=== PATIENT | female | born 1975 | race Hispanic/Latino ===

== ENCOUNTER 2017-12-04 00:10 | Emergency (ER) | payer SELFPAY ==
[2017-12-04] MEDS ORDERED: CIPROFLOXACIN HCL 500 MG TAB ONE (00:55)
--- NOTE | 2017-12-04 00:55 | ER ---
Nurse's Notes [facility] Name: Aracelis Rios Age: 42 yrs Sex: Female : 1975 Arrival Date: 12/04/2017 Time: 00:14 Bed 28 Private MD: Diagnosis: Cystitis Presentation: 12/04 00:26 Presenting complaint: Patient states: Lower back pain x 1 week, burning with urination, lp1 nausea, Pain worse today; States hx of kidney infections; Denies any fever. Transition of care: patient was not received from another setting of care. Onset of symptoms was December 04, 2017. Initial Sepsis Screen: Does the patient meet any 2 criteria? No. Patient's initial sepsis screen is negative. Does the patient have a suspected source of infection? No. Patient's initial sepsis screen is negative. Care prior to arrival: None. 00:26 Method Of Arrival: Ambulatory lp1 00:26 Acuity: PRASANNA 3 lp1 Triage Assessment: 00:30 General: Appears in no apparent distress. Behavior is calm, cooperative, appropriate lp1 for age. Pain: Complains of pain in left low back and right low back Pain currently is 6 out of 10 on a pain scale. EENT: No signs and/or symptoms were reported regarding the EENT system. Neuro: Level of Consciousness is awake, alert, obeys commands. Cardiovascular: Patient's skin is warm and dry. Respiratory: Respiratory effort is even, unlabored. GI: No signs and/or symptoms were reported involving the gastrointestinal system. : Reports burning with urination, cramping, urinary frequency. Derm: Skin is pink, warm \T\ dry. Musculoskeletal: Circulation, motion, and sensation intact. 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 - Social history:: Smoking status: Patient/guardian denies using tobacco. - Family history:: not pertinent. Screenin:31 Abuse screen: Denies threats or abuse. Denies injuries from another. Nutritional lp1 screening: No deficits noted. Tuberculosis screening: No symptoms or risk factors identified. Fall Risk None identified. Vital Signs: 00:27 BP 133 / 94; Pulse 88; Resp 18; Temp 98.3(O); Pulse Ox 99% on R/A; Weight 51.26 kg; lp1 Height 5 ft. 1 in. (154.94 cm); Pain 8/10; 00:27 Body Mass Index 21.35 (51.26 kg, 154.94 cm) lp1 ED Course: 00:14 Patient arrived in ED. do 00:26 Anjana Loo, RN is Primary Nurse. lp1 00:27 Triage completed. lp1 00:28 Arm band placed on left wrist. lp1 00:30 Geraldo Vaz MD is Attending Physician. [facility] 00:31 Patient has correct armband on for positive identification. lp1 00:42 Urine collected: clean catch specimen, clear. cb2 01:02 No provider procedures requiring assistance completed. Patient did not have IV access lp1 during this emergency room visit. Administered Medications: 01:01 Drug: Cipro 500 mg Route: PO; lp1 01:01 Follow up: Response: Medication administered at discharge. lp1 Outcome: 00:55 Discharge ordered by . leisa 01:02 Discharged to home ambulatory. lp1 01:02 Condition: good 01:02 Discharge instructions given to patient, Instructed on discharge instructions, follow up and referral plans. medication usage, Demonstrated understanding of instructions, follow-up care, medications, Prescriptions given X 2. 01:03 Patient left the ED. lp1 Signatures: Geraldo Vaz MD MD cha Pena, Laura, RN RN lp1 Elba Muhammad Christian cb2
--- NOTE | 2017-12-04 00:55 | EDPHYS ---
Physician Documentation [facility] Name: Aracelis Rios Age: 42 yrs Sex: Female : 1975 Arrival Date: 12/04/2017 Time: 00:14 Bed 28 Private MD: ED Physician Geraldo Vaz HPI: 12/04 00:52 This 42 yrs old Female presents to ER via Ambulatory with complaints of Lower leisa Back Pain, Side Pain. 00:52 The patient presents with flank pain, on the right, on the left. Onset: The leisa symptoms/episode began/occurred 3 day(s) ago. Modifying factors: The symptoms are alleviated by nothing, the symptoms are aggravated by nothing. Associated signs and symptoms: Pertinent positives: nausea, urinary frequency. Severity of symptoms: At their worst the symptoms were moderate, in the emergency department the symptoms have improved, moderately. The patient has experienced similar episodes in the past, a few times. 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 - Social history:: Smoking status: Patient/guardian denies using tobacco. - Family history:: not pertinent. ROS: 00:52 Constitutional: Negative for fever, chills, and weight loss, Eyes: Negative for injury, leisa pain, redness, and discharge, ENT: Negative for injury, pain, and discharge, Neck: Negative for injury, pain, and swelling, Cardiovascular: Negative for chest pain, palpitations, and edema, Respiratory: Negative for shortness of breath, cough, wheezing, and pleuritic chest pain, Abdomen/GI: Negative for abdominal pain, nausea, vomiting, diarrhea, and constipation, MS/Extremity: Negative for injury and deformity, Skin: Negative for injury, rash, and discoloration, Neuro: Negative for headache, weakness, numbness, tingling, and seizure. 00:52 Abdomen/GI: Positive for 00:52 Back: Positive for decreased range of motion, pain at rest, pain with movement. Exam: 00:52 Constitutional: This is a well developed, well nourished patient who is awake, alert, leisa and in no acute distress. Head/Face: Normocephalic, atraumatic. Eyes: Pupils equal round and reactive to light, extra-ocular motions intact. Lids and lashes normal. Conjunctiva and sclera are non-icteric and not injected. Cornea within normal limits. Periorbital areas with no swelling, redness, or edema. ENT: Nares patent. No nasal discharge, no septal abnormalities noted. Tympanic membranes are normal and external auditory canals are clear. Oropharynx with no redness, swelling, or masses, exudates, or evidence of obstruction, uvula midline. Mucous membranes moist. Neck: Trachea midline, no thyromegaly or masses palpated, and no cervical lymphadenopathy. Supple, full range of motion without nuchal rigidity, or vertebral point tenderness. No Meningismus. Chest/axilla: Normal chest wall appearance and motion. Nontender with no deformity. No lesions are appreciated. Cardiovascular: Regular rate and rhythm with a normal S1 and S2. No gallops, murmurs, or rubs. Normal PMI, no JVD. No pulse deficits. Respiratory: Lungs have equal breath sounds bilaterally, clear to auscultation and percussion. No rales, rhonchi or wheezes noted. No increased work of breathing, no retractions or nasal flaring. Abdomen/GI: Soft, non-tender, with normal bowel sounds. No distension or tympany. No guarding or rebound. No evidence of tenderness throughout. Back: No spinal tenderness. No costovertebral tenderness. Full range of motion. Pelvic Exam: Normal external genitalia. Speculum exam with closed cervical os, no discharge or bleeding noted. Bimanual exam with normal adnexa, no adnexal or cervical motion tenderness. Normal uterus. Skin: Warm, dry with normal turgor. Normal color with no rashes, no lesions, and no evidence of cellulitis. MS/ Extremity: Pulses equal, no cyanosis. Neurovascular intact. Full, normal range of motion. Neuro: Awake and alert, GCS 15, oriented to person, place, time, and situation. Cranial nerves II-XII grossly intact. Motor strength 5/5 in all extremities. Sensory grossly intact. Cerebellar exam normal. Normal gait. Psych: Awake, alert, with orientation to person, place and time. Behavior, mood, and affect are within normal limits. Vital Signs: 00:27 BP 133 / 94; Pulse 88; Resp 18; Temp 98.3(O); Pulse Ox 99% on R/A; Weight 51.26 kg; lp1 Height 5 ft. 1 in. (154.94 cm); Pain 8/10; 00:27 Body Mass Index 21.35 (51.26 kg, 154.94 cm) lp1 MDM: 00:30 Patient medically screened. [facility] 12/04 01:02 Order name: Urine Dipstick--Ancillary (enter results) em1 Administered Medications: 01:01 Drug: Cipro 500 mg Route: PO; lp1 01:01 Follow up: Response: Medication administered at discharge. lp1 Disposition: 12/04/17 00:55 Discharged to Home. Impression: Cystitis. - Condition is Stable. - Discharge Instructions: Dysuria. - Prescriptions for Cipro 250 mg Oral Tablet - take 1 tablet by ORAL route every 12 hours; 14 tablet. Pyridium 200 mg Oral Tablet - take 1 tablet by ORAL route every 8 hours for 3 days; 9 tablet. - Medication Reconciliation Form, Thank You Letter, Antibiotic Education, Prescription Opioid Use form. - Follow up: Private Physician; When: 2 - 3 days; Reason: Recheck today's complaints, Continuance of care, Re-evaluation by your physician. - Problem is new. - Symptoms have improved. Signatures: Dispatcher [employer] Geraldo Lynch MD MD cha Pena, Laura, RN RN lp1
[2017-12-04 01:23] VITALS: BP 133/94; TEMP 98.3; O2SAT 99
[2017-12-04 03:06] LABS: Urine Blood NEGATIVE (NEG); Urine Glucose NEGATIVE (NEG); Urine Protein NEGATIVE (NEG); Urine Specific Gravity <1.005 (1.005-1.030); Urine pH 5.5 (5.0-7.0)
== END 2017-12-04 01:03 | disposition home or self-care (01) ==
LOC: ER 00:10
DX: N30.90 Cystitis, unspecified without hematuria (principal); F41.8 Other specified anxiety disorders; R56.9 Unspecified convulsions; Z88.1 Allergy status to other antibiotic agents; Z88.0 Allergy status to penicillin
CPT/HCPCS: 81003; 99283

== ENCOUNTER 2018-01-10 07:43 | Emergency (ER) | payer SELFPAY ==
[2018-01-10] MEDS ORDERED: LORazepam 2 MG/ML VIAL ONE (08:22)
[2018-01-10 08:48] LABS: Absolute Lymphocytes (CBC) 1.8 K/uL (0.7-4.9); Absolute Monocytes 0.7 K/uL (0.1-1.3); Absolute Neutrophil 5.2 K/uL (1.8-8.0); Basophils % 1.1 % (0-1.3); Eosinophils % 0.6 % (0-4.4); Hematocrit 39.2 % (36.0-45.0); Lymphocytes % 22.7 % (15.3-44.8); MCH 31.2 pg (27.0-35.0); MCV 93.8 fL (80-100); MPV 9.3 fL (7.6-11.3); Monocytes % 9.5 % (3.3-12.3); RBC Red Blood Cell Count 4.18 M/uL (3.86-4.86)
[2018-01-10 09:02] LABS: Bicarbonate 27 mEq/L (21-31); Glucose Level 110 mg/dL (65-120); Lipase 35 U/L (22-51); Potassium 3.3 mEq/L (3.6-5.0); Sodium Level 139 mEq/L (135-145)
[2018-01-10 09:08] LABS: ALT/SGPT 13 IU/L (10-60); AST/SGOT 16 IU/L (10-42); Albumin 4.7 g/dL (3.2-5.5); Alkaline Phosphatase 116 IU/L (42-121); BUN Blood Urea Nitrogen 9 mg/dL (6-20); Bilirubin Direct 0.1 mg/dL (0-0.2); Bilirubin Total 0.5 mg/dL (0.3-1.2); Creatine Phosphokinase 74 IU/L (22-269); Protein, Total 8.4 g/dL (6.0-8.3)
--- NOTE | 2018-01-10 10:05 | ER ---
Nurse's Notes [facility] Name: Aracelis Rios Age: 42 yrs Sex: Female : 1975 Arrival Date: 01/10/2018 Time: 07:46 Bed 5 Private MD: Oscar Azevedo E Diagnosis: Nausea and vomiting;Adverse effect of cocaine Presentation: 01/10 07:54 Presenting complaint: Patient states: left sided and midsternal CP that started last sv night after using cocaine. c/o vomiting and back pain. Transition of care: patient was not received from another setting of care. Onset of symptoms was January 09, 2018. Risk Assessment: Do you want to hurt yourself or someone else? Patient reports no desire to harm self or others. Initial Sepsis Screen: Does the patient meet any 2 criteria? No. Patient's initial sepsis screen is negative. Does the patient have a suspected source of infection? No. Patient's initial sepsis screen is negative. Care prior to arrival: None. 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 - Social history:: Smoking status: Patient/guardian denies using tobacco, Patient uses alcohol, occasionally. street drugs, cocaine. - Ebola Screening: : No symptoms or risks identified at this time. Screenin:16 Abuse screen: Denies threats or abuse. Denies injuries from another. Nutritional hb screening: No deficits noted. Tuberculosis screening: No symptoms or risk factors identified. Fall Risk None identified. Assessment: 08:15 Pain: Pain currently is 4 out of 10 on a pain scale. hb 08:15 General: Appears in no apparent distress. uncomfortable, Behavior is calm, cooperative. hb Neuro: Level of Consciousness is awake, alert, obeys commands, Oriented to person, place, time, situation. Cardiovascular: Reports chest pain, Heart tones S1 S2 present Capillary refill < 3 seconds Patient's skin is warm and dry. Rhythm is regular. Respiratory: Airway is patent Trachea midline Respiratory effort is even, unlabored, Respiratory pattern is regular, symmetrical, Breath sounds are clear bilaterally. GI: Abdomen is non-distended, Bowel sounds present X 4 quads. Abd is soft and non tender X 4 quads. Reports nausea. : No signs and/or symptoms were reported regarding the genitourinary system. EENT: No signs and/or symptoms were reported regarding the EENT system. Derm: No signs and/or symptoms reported regarding the dermatologic system. Skin is intact, is healthy with good turgor, Skin is pink, warm \T\ dry. normal. Musculoskeletal: No signs and/or symptoms reported regarding the musculoskeletal system. 09:15 Reassessment: Patient appears in no apparent distress at this time. Patient and/or hb family updated on plan of care and expected duration. Pain level reassessed. Patient is alert, oriented x 3, equal unlabored respirations, skin warm/dry/pink. Vital Signs: 08:03 BP 125 / 92; Pulse 93; Resp 18; Temp 97.2(TE); Pulse Ox 98% on R/A; Weight 49.9 kg; sv Height 5 ft. 1 in. (154.94 cm); Pain 4/10; 09:00 BP 109 / 82; Pulse 75; Resp 15; Pulse Ox 98% on R/A; hb 08:03 Body Mass Index 20.78 (49.90 kg, 154.94 cm) sv ED Course: 07:46 Patient arrived in ED. sb2 07:47 Oscar Azevedo MD is Private Physician. sb2 08:02 Karel Wallace MD is Attending Physician. gs 08:02 Triage completed. sv 08:04 Arm band placed on right wrist. sv 08:09 Zeny Moura, ROSARIO is Primary Nurse. ph 08:16 Patient has correct armband on for positive identification. Placed in gown. Bed in low hb position. Call light in reach. Side rails up X 1. security monitor on. Pulse ox on. NIBP on. 08:20 Inserted saline lock: 20 gauge in right antecubital area, using aseptic technique. hb Blood collected. 08:23 EKG done, by ED staff, reviewed by Karel Wallace MD. formerly [facility] 08:25 X-ray completed. Portable x-ray completed in exam room. Patient tolerated procedure ag1 well. 08:25 XRAY Chest (1 view) In Process Unspecified. EDMS 10:43 No provider procedures requiring assistance completed. IV discontinued, intact, hb bleeding controlled, No redness/swelling at site. Pressure dressing applied. Administered Medications: 08:23 Drug: Ativan 1 mg Route: IVP; Site: right antecubital; hb Outcome: 10:05 Discharge ordered by . 10:43 Discharged to home ambulatory, with family. 10:43 Condition: stable 10:43 Discharge instructions given to patient, Instructed on discharge instructions, follow up and referral plans. medication usage, Demonstrated understanding of instructions, follow-up care, medications, Prescriptions given X 1. 10:44 Patient left the ED. Signatures: Dispatcher [employer] EDWI Karie Whalen RN RN Zeny Moura RN RN Geeta Bryson ag1 Nataliya Jones RN RN Daksha Valles [facility] Karel Wallace MD MD Dominique Jo sb2
--- NOTE | 2018-01-10 10:05 | EDPHYS ---
Physician Documentation [facility] Name: Aracelis Rios Age: 42 yrs Sex: Female : 1975 Arrival Date: 01/10/2018 Time: 07:46 Bed 5 Private MD: Oscar Azevedo E ED Physician Karel Wallace HPI: 01/10 11:58 This 42 yrs old Female presents to ER via Ambulatory with complaints of gs Nausea, Lightheaded. 11:58 The patient or guardian reports chest pain that is located primarily in the anterior gs chest wall. Onset: last night. The pain does not radiate. Associated signs and symptoms: Pertinent positives: nausea. The chest pain is described as dull. Duration: The patient or guardian reports multiple episodes, that wax and wane, with no pattern. Modifying factors: The symptoms are alleviated by nothing. the symptoms are aggravated by nothing. Severity of pain: At its worst the pain was moderate in the emergency department the pain has resolved. The patient has experienced similar episodes in the past, a few times. did coke last night. 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 - Social history:: Smoking status: Patient/guardian denies using tobacco, Patient uses alcohol, occasionally. street drugs, cocaine. - Ebola Screening: : No symptoms or risks identified at this time. ROS: 11:58 All other systems are negative. gs Exam: 08:30 ECG was reviewed by the Attending Physician. gs 11:58 Head/Face: Normocephalic, atraumatic. Eyes: Pupils equal round and reactive to light, gs extra-ocular motions intact. Lids and lashes normal. Conjunctiva and sclera are non-icteric and not injected. Cornea within normal limits. Periorbital areas with no swelling, redness, or edema. ENT: Nares patent. No nasal discharge, no septal abnormalities noted. Tympanic membranes are normal and external auditory canals are clear. Oropharynx with no redness, swelling, or masses, exudates, or evidence of obstruction, uvula midline. Mucous membranes moist. Neck: Trachea midline, no thyromegaly or masses palpated, and no cervical lymphadenopathy. Supple, full range of motion without nuchal rigidity, or vertebral point tenderness. No Meningismus. Chest/axilla: Normal chest wall appearance and motion. Nontender with no deformity. No lesions are appreciated. Cardiovascular: Regular rate and rhythm with a normal S1 and S2. No gallops, murmurs, or rubs. Normal PMI, no JVD. No pulse deficits. Respiratory: Lungs have equal breath sounds bilaterally, clear to auscultation and percussion. No rales, rhonchi or wheezes noted. No increased work of breathing, no retractions or nasal flaring. Abdomen/GI: Soft, non-tender, with normal bowel sounds. No distension or tympany. No guarding or rebound. No evidence of tenderness throughout. Back: No spinal tenderness. No costovertebral tenderness. Full range of motion. Skin: Warm, dry with normal turgor. Normal color with no rashes, no lesions, and no evidence of cellulitis. MS/ Extremity: Pulses equal, no cyanosis. Neurovascular intact. Full, normal range of motion. Neuro: Awake and alert, GCS 15, oriented to person, place, time, and situation. Cranial nerves II-XII grossly intact. Motor strength 5/5 in all extremities. Sensory grossly intact. Cerebellar exam normal. Normal gait. 11:58 Constitutional: The patient appears alert, awake. Vital Signs: 08:03 BP 125 / 92; Pulse 93; Resp 18; Temp 97.2(TE); Pulse Ox 98% on R/A; Weight 49.9 kg; sv Height 5 ft. 1 in. (154.94 cm); Pain 4/10; 09:00 BP 109 / 82; Pulse 75; Resp 15; Pulse Ox 98% on R/A; hb 08:03 Body Mass Index 20.78 (49.90 kg, 154.94 cm) sv MDM: 08:02 Patient medically screened. 11:58 Differential diagnosis: coronary artery disease chest wall pain, pleurisy. Data gs reviewed: vital signs, nurses notes. Response to treatment: the patient's symptoms have resolved after treatment, and as a result, I will discharge patient. 01/10 08:07 Order name: Basic Metabolic Panel; Complete Time: 09:22 gs 01/10 08:07 Order name: CBC with Diff; Complete Time: 09:22 gs 01/10 08:07 Order name: CPK; Complete Time: 09:22 gs 01/10 08:07 Order name: LFT's; Complete Time: 09:22 gs 01/10 08:07 Order name: Troponin (emerg Dept Use Only); Complete Time: 09:22 gs 01/10 08:07 Order name: Lipase; Complete Time: 09:22 gs 01/10 08:07 Order name: XRAY Chest (1 view) 01/10 08:07 Order name: EKG; Complete Time: 08:07 gs 01/10 08:07 Order name: Cardiac monitoring; Complete Time: 08:23 gs 01/10 08:07 Order name: EKG - Nurse/Tech; Complete Time: 08:23 gs 01/10 08:07 Order name: IV Saline Lock; Complete Time: 08:23 gs 01/10 08:07 Order name: Labs collected and sent; Complete Time: 08:23 gs 01/10 08:07 Order name: O2 Per Protocol; Complete Time: 08:23 gs 01/10 08:07 Order name: O2 Sat Monitoring; Complete Time: 08:23 gs EC:30 Rate is 81 beats/min. Rhythm is regular. NV interval is normal. QRS interval is normal. gs T waves are Normal. No ST changes noted. Clinical impression: Normal ECG. Interpreted by me. Administered Medications: 08:23 Drug: Ativan 1 mg Route: IVP; Site: right antecubital; hb Disposition: 01/10/18 10:05 Discharged to Home. Impression: Nausea and vomiting, Adverse effect of cocaine. - Condition is Stable. - Discharge Instructions: Nausea and Vomiting. - Prescriptions for Ativan 1 mg Oral Tablet - take 1 tablet by ORAL route every 8 hours As needed; 6 tablet. - Work release form, Family Work Release, Medication Reconciliation Form, Thank You Letter, Antibiotic Education, Prescription Opioid Use form. - Follow up: Private Physician; When: 2 - 3 days; Reason: Re-evaluation by your physician. Signatures: Dispatcher [employer] Karie Maloney RN RN Nataliya Holland RN RN Karel Serra MD MD gs Corrections: (The following items were deleted from the chart) 10:44 10:05 01/10/2018 10:05 Discharged to Home. Impression: Nausea and vomiting; Adverse hb effect of cocaine. Condition is Stable. Forms are Medication Reconciliation Form, Thank You Letter, Antibiotic Education, Prescription Opioid Use. Follow up: Private Physician; When: 2 - 3 days; Reason: Re-evaluation by your physician. gs
--- NOTE | 2018-01-10 10:39 | EKG ---
Test Date: 2018-01-10 Test Time: 08:19:58 Purchaser: SOUTH MEASUREMENT RESULTS: Intervals: Rate: 81 ID: [id number] QRSD: 70 QT: 380 QTc: 441 [place]: P: 41 ID: [id number] QRS: 73 T: 70 INTERPRETIVE STATEMENTS: Normal sinus rhythm with sinus arrhythmia Normal ECG Compared to ECG 12/02/2016 14:09:03 Sinus bradycardia no longer present Electronically Signed On 01-10-18 10:38:28 CDT by Valdez Alvarado
--- NOTE | 2018-01-10 10:57 | RAD REPORT ---
EXAM DESCRIPTION: Nayana Single View01/10/2018 8:28 am CLINICAL HISTORY: Chest pain COMPARISON: December 2016 FINDINGS: The lungs appear clear of acute infiltrate. The heart is normal size. Nodular opacity ove rlying the lung bases probably represent nipple shadows. This could be confirmed with chest film with nipple markers
[2018-01-10 11:01] VITALS: TEMP 97.2; O2SAT 98
[2018-01-10 11:02] VITALS: BP 109/82
== END 2018-01-10 10:44 | disposition home or self-care (01) ==
LOC: ER 07:43
DX: R11.2 Nausea with vomiting, unspecified (principal); T40.5X5A Adverse effect of cocaine, initial encounter; F41.9 Anxiety disorder, unspecified; F32.9 Major depressive disorder, single episode, unspecified; Z88.0 Allergy status to penicillin; Z88.1 Allergy status to other antibiotic agents; Z88.8 Allergy status to other drugs, medicaments and biological substances
CPT/HCPCS: 36415; 71045; 80048; 80076; 82550; 83690; 84484; 85025; 93005; 96374; 99284

== ENCOUNTER 2018-02-13 08:03 | Emergency (ER) | payer SELFPAY ==
--- NOTE | 2018-02-13 08:21 | ER ---
Nurse's Notes [facility] Name: Aracelis Rios Age: 42 yrs Sex: Female : 1975 Arrival Date: 02/13/2018 Time: 08:05 Bed 7 Private MD: Oscar Azevedo E Diagnosis: Nausea and vomiting Presentation: 02/13 08:10 Presenting complaint: Patient states: for 2 days i have been vomiting, can keep tw2 gatoraid down. Transition of care: patient was not received from another setting of care. Onset of symptoms was February 13, 2018. Risk Assessment: Do you want to hurt yourself or someone else? Patient reports no desire to harm self or others. Initial Sepsis Screen: Does the patient meet any 2 criteria? No. Patient's initial sepsis screen is negative. Does the patient have a suspected source of infection? No. Patient's initial sepsis screen is negative. Care prior to arrival: None. 08:10 Method Of Arrival: Ambulatory tw2 08:10 Acuity: PRASANNA 3 tw2 Triage Assessment: 08:12 General: Appears in no apparent distress. well groomed, Behavior is calm, cooperative, tw2 appropriate for age, pt is on phone upon entry into the room. Pain: Complains of pain in abdomen. EENT: No signs and/or symptoms were reported regarding the EENT system. Neuro: Level of Consciousness is awake, alert, obeys commands, Oriented to person, place, time, situation. Cardiovascular: Denies chest pain, shortness of breath, Heart tones S1 S2 Capillary refill < 3 seconds Patient's skin is warm and dry. Respiratory: Airway is patent Respiratory effort is even, unlabored, Respiratory pattern is regular, symmetrical, Breath sounds are clear bilaterally. GI: Abdomen is flat, Bowel sounds present X 4 quads. Reports intolerance of fluids, intolerance of food, nausea. : No signs and/or symptoms were reported regarding the genitourinary system. Derm: No signs and/or symptoms reported regarding the dermatologic system. Musculoskeletal: Range of motion: intact in all extremities. 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 tw2 Historical: - Allergies: 08:12 Amoxicillin; tw2 08:12 ketorolac tromethamine; tw2 08:12 Ondansetron HCl; tw2 08:12 PENICILLINS; tw2 - Home Meds: 08:12 Xanax 1 mg Oral tab twice a day [Active]; mirtazapine 15 mg Oral tab 1 tab once daily tw2 [Active]; Ambien 10 mg Oral tab 1 tab once daily [Active]; - PMHx: 08:12 Anxiety; Depression; PTSD; Seizures; tw2 - PSHx: 08:12 ; Appendectomy; Hysterectomy; D \T\ C; tw2 - Immunization history:: Adult Immunizations up to date. - Social history:: Smoking status: Patient/guardian denies using tobacco. - Ebola Screening: : Patient denies exposure to infectious person Patient denies travel to an Ebola-affected area in the 21 days before illness onset. Screenin:15 Abuse screen: Denies threats or abuse. Nutritional screening: No deficits noted. tw2 Tuberculosis screening: No symptoms or risk factors identified. Fall Risk None identified. Assessment: 08:21 Reassessment: see triage assessment. Reassessment: pt given 4oz water for PO challenge tw2 at this time, will continue to monitor, pt denies abdominal pain at this time. GI: Reports nausea. 08:31 Reassessment: Patient appears in no apparent distress at this time. Patient and/or tw2 family updated on plan of care and expected duration. Pain level reassessed. Patient is alert, oriented x 3, equal unlabored respirations, skin warm/dry/pink. pt tolerated fluids well, nad. Vital Signs: 08:13 BP 121 / 73; Pulse 74; Resp 17; Temp 98.6(O); Pulse Ox 100% on R/A; Pain 4/10; tw2 ED Course: 08:05 Patient arrived in ED. mr 08:05 Oscar Azevedo MD is Private Physician. mr 08:09 Geraldo Duff [facility]. cp 08:09 Vernon Vazquez MD is Attending Physician. cp 08:10 Rachna Butler, ROSARIO is Primary Nurse. tw2 08:11 Triage completed. tw2 08:13 Arm band placed on. tw2 08:14 Bed in low position. Call light in reach. Pulse ox on. NIBP on. tw2 08:22 No provider procedures requiring assistance completed. tw2 08:32 Patient did not have IV access during this emergency room visit. tw2 Administered Medications: No medications were administered Outcome: 08:21 Discharge ordered by . cp 08:32 Discharged to home ambulatory. tw2 08:32 Condition: stable 08:32 Discharge instructions given to patient, Instructed on discharge instructions, follow up and referral plans. no drinking with medication, no driving heavy equipment, medication usage, Demonstrated understanding of instructions, follow-up care, medications, Prescriptions given X 1. 08:32 Patient left the ED. tw2 Signatures: Sommer Banuelos mr Geraldo Duff, Rachna Longoria cp RN RN tw2
--- NOTE | 2018-02-13 08:21 | EDPHYS ---
Physician Documentation [facility] Name: Aracelis Rios Age: 42 yrs Sex: Female : 1975 Arrival Date: 02/13/2018 Time: 08:05 Bed 7 Private MD: Oscar Azevedo E ED Physician Vernon Vazquez HPI: 02/13 08:14 This 42 yrs old Female presents to ER via Ambulatory with complaints of cp Vomiting. 08:14 The patient presents to the emergency department with vomiting, that is intermittent. cp Onset: The symptoms/episode began/occurred yesterday. Possible causes: bad food exposure. The symptoms are aggravated by food . Associated signs and symptoms: Pertinent positives: diarrhea yesterday, Pertinent negatives: abdominal pain, constipation, fever, GI bleeding. Severity of symptoms: in the emergency department the symptoms have improved moderately. 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 tw2 Historical: - Allergies: 08:12 Amoxicillin; tw2 08:12 ketorolac tromethamine; tw2 08:12 Ondansetron HCl; tw2 08:12 PENICILLINS; tw2 - Home Meds: 08:12 Xanax 1 mg Oral tab twice a day [Active]; mirtazapine 15 mg Oral tab 1 tab once daily tw2 [Active]; Ambien 10 mg Oral tab 1 tab once daily [Active]; - PMHx: 08:12 Anxiety; Depression; PTSD; Seizures; tw2 - PSHx: 08:12 ; Appendectomy; Hysterectomy; D \T\ C; tw2 - Immunization history:: Adult Immunizations up to date. - Social history:: Smoking status: Patient/guardian denies using tobacco. - Ebola Screening: : Patient denies exposure to infectious person Patient denies travel to an Ebola-affected area in the 21 days before illness onset. ROS: 08:16 Eyes: Negative for injury, pain, redness, and discharge. cp 08:16 Constitutional: Negative for body aches, chills, fever. 08:16 ENT: Negative for drainage from ear(s), ear pain, sore throat, difficulty swallowing, difficulty handling secretions. 08:16 Cardiovascular: Negative for chest pain. 08:16 Respiratory: Negative for cough, shortness of breath, wheezing. 08:16 Abdomen/GI: Positive for nausea, vomiting, Negative for abdominal pain, constipation, anorexia, hematemesis. 08:16 Back: Negative for pain at rest, pain with movement, radiated pain. 08:16 : Negative for urinary symptoms. 08:16 Skin: Negative for cellulitis, rash. 08:16 Neuro: Negative for dizziness, headache, weakness. 08:16 All other systems are negative. Exam: 08:18 Head/Face: Normocephalic, atraumatic. cp 08:18 Constitutional: The patient appears in no acute distress, alert, awake, non-toxic, well developed, well nourished. 08:18 Eyes: Periorbital structures: appear normal, Conjunctiva: normal, no exudate, no injection, Lids and lashes: appear normal, bilaterally. 08:18 ENT: External ear(s): are unremarkable, Nose: is normal, Mouth: Lips: moist, Oral mucosa: moist, Posterior pharynx: is normal, airway is patent, no erythema, no exudate. 08:18 Neck: ROM/movement: is normal, is supple, without pain, no range of motions limitations, no nuchal rigidity. 08:18 Chest/axilla: Inspection: normal, Palpation: is normal, no crepitus, no tenderness. 08:18 Cardiovascular: Rate: normal, Rhythm: regular. 08:18 Respiratory: the patient does not display signs of respiratory distress, Respirations: normal, no use of accessory muscles, no retractions, no splinting, no tachypnea, labored breathing, is not present, Breath sounds: are clear throughout, no decreased breath sounds, no stridor, no wheezing. 08:18 Abdomen/GI: Inspection: abdomen appears normal, Bowel sounds: active, all quadrants, Palpation: abdomen is soft and non-tender, in all quadrants, rebound tenderness, is not appreciated, voluntary guarding, is not appreciated, involuntary guarding, is not appreciated. 08:18 Back: pain, is absent, ROM is normal. 08:18 Skin: cellulitis, is not appreciated, no rash present. Vital Signs: 08:13 BP 121 / 73; Pulse 74; Resp 17; Temp 98.6(O); Pulse Ox 100% on R/A; Pain 4/10; tw2 MDM: 08:11 Patient medically screened. cp 08:15 Differential diagnosis: gastritis, cholecystitis, pancreatitis, appendicitis, cp diverticulitis, viral gastroenteritis, gastroenteritis. 08:20 Data reviewed: vital signs, nurses notes, and as a result, I will discharge patient. 08:20 ED course: VSS. No vomiting observed in ED, no complaints of pain. Will discharge to home for continued monitoring. Patient tolerating po fluids. 02/13 08:20 Order name: PO challenge; Complete Time: 08:31 tw2 Administered Medications: No medications were administered Disposition: 10:03 Co-signature as Attending Physician, Vernon Vazquez MD I agree with the assessment and kdr plan of care. Disposition: 02/13/18 08:21 Discharged to Home. Impression: Nausea and vomiting. - Condition is Stable. - Discharge Instructions: Nausea and Vomiting. - Prescriptions for promethazine 25 mg Oral Tablet - take 1 tablet by ORAL route every 6 hours As needed; 10 tablet. - Medication Reconciliation Form, Thank You Letter, Antibiotic Education, Prescription Opioid Use, Work release form form. - Follow up: Private Physician; When: 1 - 2 days; Reason: Recheck today's complaints. - Problem is new. - Symptoms have improved. Signatures: Vernon Vazquez MD MD kdr Geraldo Duff PA PA cp Rachna Butler RN RN tw2 Corrections: (The following items were deleted from the chart) 08:32 08:21 02/13/2018 08:21 Discharged to Home. Impression: Nausea and vomiting. Condition tw2 is Stable. Forms are Work release form, Medication Reconciliation Form, Thank You Letter, Antibiotic Education, Prescription Opioid Use. Follow up: Private Physician; When: 1 - 2 days; Reason: Recheck today's complaints. Problem is new. Symptoms have improved. cp
[2018-02-13 08:37] VITALS: BP 121/73; TEMP 98.6; O2SAT 100
== END 2018-02-13 08:32 | disposition home or self-care (01) ==
LOC: ER 08:03
DX: R11.2 Nausea with vomiting, unspecified (principal); F41.9 Anxiety disorder, unspecified; F32.9 Major depressive disorder, single episode, unspecified; Z88.0 Allergy status to penicillin; Z88.1 Allergy status to other antibiotic agents; Z88.8 Allergy status to other drugs, medicaments and biological substances
CPT/HCPCS: 99283

== ENCOUNTER 2018-04-16 11:22 | Emergency (ER) | payer SELFPAY ==
[2018-04-16] MEDS ORDERED: PROMETHAZINE 25 MG TABLET ONE (12:16)
[2018-04-16] MEDS ORDERED: TRAMADOL HCL 50 MG TAB ONE (12:17)
--- NOTE | 2018-04-16 12:28 | ER ---
Nurse's Notes [facility] Name: Aracelis Rios Age: 42 yrs Sex: Female : 1975 Arrival Date: 04/16/2018 Time: 11:25 Bed 13 Private MD: Diagnosis: Epilepsy and recurrent seizures Presentation: 04/16 11:29 Presenting complaint: EMS states: called out for mild FELICIANO, pt was found in parking lot em curled up into a ball, hx of seizures, currently rates FELICIANO 10/10, described as throbbing, also c/o nausea. Transition of care: patient was not received from another setting of care. Onset of symptoms was April 16, 2018. Risk Assessment: Do you want to hurt yourself or someone else? Patient reports no desire to harm self or others. 11:29 Method Of Arrival: EMS: [facility] em 11:29 Initial Sepsis Screen: Does the patient meet any 2 criteria? No. Patient's initial em sepsis screen is negative. Does the patient have a suspected source of infection? No. Patient's initial sepsis screen is negative. Care prior to arrival: None. 11:35 Acuity: PRASANNA 3 iw Triage Assessment: 11:32 General: Appears in no apparent distress. uncomfortable, Behavior is calm, cooperative. em Pain: Complains of pain in head Pain currently is 10 out of 10 on a pain scale. Neuro: Level of Consciousness is awake, alert, obeys commands, Oriented to person, place, time, situation, Outside Sales Account Representative are equal bilaterally Moves all extremities. Speech is normal. 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 - Social history:: Smoking status: Patient/guardian denies using tobacco. - Ebola Screening: : Patient negative for fever greater than or equal to 101.5 degrees Fahrenheit, and additional compatible Ebola Virus Disease symptoms Patient denies exposure to infectious person Patient denies travel to an Ebola-affected area in the 21 days before illness onset No symptoms or risks identified at this time. Screenin:46 Abuse screen: Denies threats or abuse. Nutritional screening: No deficits noted. em Tuberculosis screening: No symptoms or risk factors identified. Fall Risk None identified. Assessment: 11:35 General: Appears in no apparent distress. uncomfortable, Behavior is calm, cooperative, em appropriate for age. Pain: Complains of pain in head Pain currently is 10 out of 10 on a pain scale. Neuro: Level of Consciousness is awake, alert, obeys commands, Oriented to person, place, time, situation, Outside Sales Account Representative are equal bilaterally Moves all extremities. Speech is normal, Reports headache in right. Cardiovascular: Capillary refill < 3 seconds Patient's skin is warm and dry. Respiratory: Airway is patent Respiratory effort is even, unlabored, Respiratory pattern is regular, symmetrical. GI: Abdomen is flat, Reports nausea, Patient currently denies abdominal pain. : No signs and/or symptoms were reported regarding the genitourinary system. EENT: No signs and/or symptoms were reported regarding the EENT system. Derm: Skin is intact, Skin is pink, warm \T\ dry. Musculoskeletal: Range of motion: intact in all extremities. 11:45 Reassessment: Patient appears in no apparent distress at this time. I agree with above iw assessment by Mauro Anders LVN. 12:37 Reassessment: Patient appears in no apparent distress at this time. Patient and/or em family updated on plan of care and expected duration. Pain level reassessed. Patient is alert, oriented x 3, equal unlabored respirations, skin warm/dry/pink. request to go home. Vital Signs: 11:34 BP 108 / 65; Pulse 102; Resp 20; Pulse Ox 100% on R/A; Weight 53.52 kg; Height 5 ft. 1 em in. (154.94 cm); Pain 10/10; 12:42 BP 105 / 71; Pulse 76; Resp 18; Pulse Ox 99% on R/A; Pain 8/10; em 11:34 Body Mass Index 22.30 (53.52 kg, 154.94 cm) em [place] Coma Score: 11:32 Eye Response: spontaneous(4). Verbal Response: oriented(5). Motor Response: obeys em commands(6). Total: 15. ED Course: 11:25 Patient arrived in ED. iw 11:28 Mauro Anders LVN is Primary Nurse. em 11:33 Vernon Vazquez MD is Attending Physician. kdr 11:34 Arm band placed on. em 11:34 Patient has correct armband on for positive identification. Call light in reach. Side em rails up X2. Adult w/ patient. 11:34 Seizure precautions initiated. em 11:34 No provider procedures requiring assistance completed. Maintain EMS IV. Dressing em intact. Good blood return noted. Site clean \T\ dry. Gauge \T\ site: 18 RAC. 12:37 Triage completed. iw 12:47 Patient did not have IV access during this emergency room visit. em Administered Medications: 12:14 Drug: Phenergan 25 mg Route: PO; em 12:50 Follow up: Response: No adverse reaction em 12:50 Follow up: Response: No adverse reaction em 12:14 Drug: traMADol 50 mg Route: PO; em Outcome: 12:27 Discharge ordered by . kdr 12:49 Discharged to home ambulatory, with family. em 12:49 Condition: good 12:49 Discharge instructions given to patient, family, Instructed on discharge instructions, follow up and referral plans. Demonstrated understanding of instructions, follow-up care. 12:49 Patient left the ED. em Signatures: Vernon Vazquez MD MD [facility] Mauro Anders LVN LVN em Betsy Patel RN RN iw Corrections: (The following items were deleted from the chart) 12:47 11:34 Patient did not have IV access during this emergency room visit. em em
--- NOTE | 2018-04-16 12:28 | EDPHYS ---
Physician Documentation [facility] Name: Aracelis Rios Age: 42 yrs Sex: Female : 1975 Arrival Date: 04/16/2018 Time: 11:25 Bed 13 Private MD: ED Physician Vernon Vazquez HPI: 04/16 16:48 This 42 yrs old Female presents to ER via EMS with complaints of Headache. kdr 16:48 The patient complains of pain to the top of head, left frontal area and right frontal kdr area. The patient describes the headache as aching, a pressure, waxing and waning. Onset: The symptoms/episode began/occurred just prior to arrival, today. The patient presents after having a single isolated seizure, that lasted an unknown period of time, the episode(s) was witnessed, by co-worker(s). Character of seizure(s): Loss of consciousness: the patient experienced loss of consciousness, Motor activity: generalized, shaking all over. Seizure onset: just prior to arrival. Context: occurred at work, occurred while the patient was. Seizure Hx: Cause: head injury, Last seizure: The patient's last seizure was approximately 3 month(s) ago, Seizure medications: none. Associated injury: The patient did not suffer any apparent associated injury. Current symptoms: headache, that is mild. 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 - Social history:: Smoking status: Patient/guardian denies using tobacco. - Ebola Screening: : Patient negative for fever greater than or equal to 101.5 degrees Fahrenheit, and additional compatible Ebola Virus Disease symptoms Patient denies exposure to infectious person Patient denies travel to an Ebola-affected area in the 21 days before illness onset No symptoms or risks identified at this time. ROS: 16:48 Constitutional: Negative for fever, chills, and weight loss, Eyes: Negative for injury, kdr pain, redness, and discharge, ENT: Negative for injury, pain, and discharge, Neck: Negative for injury, pain, and swelling, Cardiovascular: Negative for chest pain, palpitations, and edema, Respiratory: Negative for shortness of breath, cough, wheezing, and pleuritic chest pain, Abdomen/GI: Negative for abdominal pain, nausea, vomiting, diarrhea, and constipation, Back: Negative for injury and pain, : Negative for injury, bleeding, discharge, and swelling, MS/Extremity: Negative for injury and deformity, Skin: Negative for injury, rash, and discoloration, Psych: Negative for depression, anxiety, suicide ideation, homicidal ideation, and hallucinations, Allergy/Immunology: Negative for hives, rash, and allergies, Endocrine: Negative for neck swelling, polydipsia, polyuria, polyphagia, and marked weight changes, Hematologic/Lymphatic: Negative for swollen nodes, abnormal bleeding, and unusual bruising. 16:48 Neuro: Positive for altered mental status, headache, seizure activity, Negative for dizziness, gait disturbance, hearing loss, numbness, speech changes, syncope, near syncope, tingling, tinnitus, tremor, visual changes, weakness, acute changes. Exam: 16:48 Constitutional: This is a well developed, well nourished patient who is awake, alert, kdr and in no acute distress. Head/Face: Normocephalic, atraumatic. Eyes: Pupils equal round and reactive to light, extra-ocular motions intact. Lids and lashes normal. Conjunctiva and sclera are non-icteric and not injected. Cornea within normal limits. Periorbital areas with no swelling, redness, or edema. Neck: Trachea midline, no thyromegaly or masses palpated, and no cervical lymphadenopathy. Supple, full range of motion without nuchal rigidity, or vertebral point tenderness. No Meningismus. Chest/axilla: Normal chest wall appearance and motion. Nontender with no deformity. No lesions are appreciated. Cardiovascular: Regular rate and rhythm with a normal S1 and S2. No gallops, murmurs, or rubs. Normal PMI, no JVD. No pulse deficits. Respiratory: Lungs have equal breath sounds bilaterally, clear to auscultation and percussion. No rales, rhonchi or wheezes noted. No increased work of breathing, no retractions or nasal flaring. Abdomen/GI: Soft, non-tender, with normal bowel sounds. No distension or tympany. No guarding or rebound. No evidence of tenderness throughout. Back: No spinal tenderness. No costovertebral tenderness. Full range of motion. Skin: Warm, dry with normal turgor. Normal color with no rashes, no lesions, and no evidence of cellulitis. MS/ Extremity: Pulses equal, no cyanosis. Neurovascular intact. Full, normal range of motion. Neuro: Awake and alert, GCS 15, oriented to person, place, time, and situation. Cranial nerves II-XII grossly intact. Motor strength 5/5 in all extremities. Sensory grossly intact. Cerebellar exam normal. Normal gait. Psych: Awake, alert, with orientation to person, place and time. Behavior, mood, and affect are within normal limits. Vital Signs: 11:34 BP 108 / 65; Pulse 102; Resp 20; Pulse Ox 100% on R/A; Weight 53.52 kg; Height 5 ft. 1 em in. (154.94 cm); Pain 10/10; 12:42 BP 105 / 71; Pulse 76; Resp 18; Pulse Ox 99% on R/A; Pain 8/10; em 11:34 Body Mass Index 22.30 (53.52 kg, 154.94 cm) em [place] Coma Score: 11:32 Eye Response: spontaneous(4). Verbal Response: oriented(5). Motor Response: obeys em commands(6). Total: 15. MDM: 12:27 Patient medically screened. kdr 16:48 ED course: The patient wanted to leave without further evaluation or treatment. kdr Administered Medications: 12:14 Drug: Phenergan 25 mg Route: PO; em 12:50 Follow up: Response: No adverse reaction em 12:50 Follow up: Response: No adverse reaction em 12:14 Drug: traMADol 50 mg Route: PO; em Disposition: 04/16/18 12:27 Discharged to Home. Impression: Epilepsy and recurrent seizures. - Condition is Stable. - Discharge Instructions: Seizure, Adult, [id number]. - Medication Reconciliation Form, Thank You Letter form. - Follow up: Private Physician; When: 2 - 3 days; Reason: If symptoms return, Further diagnostic work-up, Recheck today's complaints, Continuance of care, Re-evaluation by your physician. - Problem is an acute exacerbation. - Symptoms are resolved. Signatures: Vernon Vazquez MD MD kdr Mauro Anders, PIPE INSPECTOR PIPE INSPECTOR em Corrections: (The following items were deleted from the chart) 12:49 12:27 04/16/2018 12:27 Discharged to Home. Impression: Epilepsy and recurrent seizures. em Condition is Stable. Forms are Medication Reconciliation Form, Thank You Letter, Antibiotic Education, Prescription Opioid Use. Follow up: Private Physician; When: 2 - 3 days; Reason: If symptoms return, Further diagnostic work-up, Recheck today's complaints, Continuance of care, Re-evaluation by your physician. Problem is an acute exacerbation. Symptoms are resolved. kdr
[2018-04-16 13:23] VITALS: BP 105/71; O2SAT 99
== END 2018-04-16 12:49 | disposition home or self-care (01) ==
LOC: ER 11:22
DX: G40.802 Other epilepsy, not intractable, without status epilepticus (principal); F43.10 Post-traumatic stress disorder, unspecified; Z88.0 Allergy status to penicillin; Z88.1 Allergy status to other antibiotic agents; Z88.5 Allergy status to narcotic agent; Z88.8 Allergy status to other drugs, medicaments and biological substances
CPT/HCPCS: 99283

== ENCOUNTER 2018-06-06 13:56 | Emergency (ER) | payer SELFPAY ==
--- NOTE | 2018-06-06 14:26 | EDPHYS ---
Physician Documentation [facility] Name: Aracelis Rios Age: 42 yrs Sex: Female : 1975 Arrival Date: 06/06/2018 Time: 13:59 Bed 16 Private MD: Rosales Rivera T ED Physician Karel Wallace HPI: 06/06 14:26 This 42 yrs old Female presents to ER via Ambulatory with complaints of jr8 Probable Seizure. 14:26 Seizure onset: this morning. Seizure Hx: Original onset: longstanding. Current jr8 symptoms: Currently, the patient is not experiencing any symptoms, the patient feels back to baseline, no decreased level of consciousness, no confusion, no dysphasia, no headache, no paralysis, no visual changes. The patient has experienced similar episodes in the past, several times. The patient has not recently seen a physician. Stated that she had a seizure this morning. Has been asymptomatic and back to baseline since incident. Could not go to work so needed work note which is why she came to ED. Complains of no other problems at this time . Historical: - Allergies: 14:02 Amoxicillin; sv 14:02 Demerol; sv 14:02 ketorolac tromethamine; sv 14:02 Ondansetron HCl; sv 14:02 PENICILLINS; sv - PMHx: 14:02 Anxiety; Depression; PTSD; Seizures; sv - PSHx: 14:02 Hysterectomy; ; Appendectomy; sv - Immunization history:: Adult Immunizations up to date, Flu vaccine is not up to date. - Social history:: Smoking status: Patient/guardian denies using tobacco. - Ebola Screening: : No symptoms or risks identified at this time. ROS: 14:26 Constitutional: Negative for fever, chills, and weight loss. jr8 14:26 Neuro: Positive for seizure activity. 14:26 All other systems are negative. Exam: 14:26 Head/Face: Normocephalic, atraumatic. Eyes: Pupils equal round and reactive to light, jr8 extra-ocular motions intact. Lids and lashes normal. Conjunctiva and sclera are non-icteric and not injected. Cornea within normal limits. Periorbital areas with no swelling, redness, or edema. ENT: Nares patent. No nasal discharge, no septal abnormalities noted. Tympanic membranes are normal and external auditory canals are clear. Oropharynx with no redness, swelling, or masses, exudates, or evidence of obstruction, uvula midline. Mucous membranes moist. Neck: Trachea midline, no thyromegaly or masses palpated, and no cervical lymphadenopathy. Supple, full range of motion without nuchal rigidity, or vertebral point tenderness. No Meningismus. Cardiovascular: Regular rate and rhythm with a normal S1 and S2. No gallops, murmurs, or rubs. Normal PMI, no JVD. No pulse deficits. Respiratory: Lungs have equal breath sounds bilaterally, clear to auscultation and percussion. No rales, rhonchi or wheezes noted. No increased work of breathing, no retractions or nasal flaring. Abdomen/GI: Soft, non-tender, with normal bowel sounds. No distension or tympany. No guarding or rebound. No evidence of tenderness throughout. Back: No spinal tenderness. No costovertebral tenderness. Full range of motion. Skin: Warm, dry with normal turgor. Normal color with no rashes, no lesions, and no evidence of cellulitis. MS/ Extremity: Pulses equal, no cyanosis. Neurovascular intact. Full, normal range of motion. Neuro: Awake and alert, GCS 15, oriented to person, place, time, and situation. Cranial nerves II-XII grossly intact. Motor strength 5/5 in all extremities. Sensory grossly intact. Cerebellar exam normal. Normal gait. Vital Signs: 14:02 BP 124 / 94; Pulse 100; Resp 18; Temp 98.7; Pulse Ox 100% ; Weight 54.43 kg; Height 5 sv ft. 1 in. (154.94 cm); Pain 2/10; 14:02 Body Mass Index 22.67 (54.43 kg, 154.94 cm) sv Mike Coma Score: 14:01 Eye Response: spontaneous(4). Verbal Response: oriented(5). Motor Response: obeys sv commands(6). Total: 15. MDM: 14:19 Patient medically screened. 8 14:25 Data reviewed: vital signs, nurses notes, and as a result, I will discharge patient. jr8 Data interpreted: Pulse oximetry: on room air is 100 %. Interpretation: normal. Counseling: I had a detailed discussion with the patient and/or guardian regarding: the historical points, exam findings, and any diagnostic results supporting the discharge/admit diagnosis, the need for outpatient follow up, a family practitioner, to return to the emergency department if symptoms worsen or persist or if there are any questions or concerns that arise at home. Administered Medications: No medications were administered Disposition: 06/06/18 14:25 Discharged to Home. Impression: Epilepsy and recurrent seizures. - Condition is Stable. - Discharge Instructions: Seizure, Adult. - Work release form, Medication Reconciliation Form, Thank You Letter, Antibiotic Education, Prescription Opioid Use form. - Follow up: Private Physician; When: As needed; Reason: Recheck today's complaints, Continuance of care, Re-evaluation by your physician. - Problem is new. - Symptoms have improved. Addendum: 06/14/2018 11:45 Co-signature as Attending Physician, Karel Wallace MD. g s Signatures: Karie Whalen, RN RN sv Mauro Anders, COOKING APPLIANCE REPAIR TECHNICIAN COOKING APPLIANCE REPAIR TECHNICIAN em Adam Pickering, PA PA jr8 Karel Wallace MD MD gs Corrections: (The following items were deleted from the chart) 06/06 14:35 14:25 06/06/2018 14:25 Discharged to Home. Impression: Epilepsy and recurrent seizures. em Condition is Stable. Forms are Medication Reconciliation Form, Thank You Letter, Antibiotic Education, Prescription Opioid Use. Follow up: Private Physician; When: As needed; Reason: Recheck today's complaints, Continuance of care, Re-evaluation by your physician. Problem is new. Symptoms have improved. jr8
--- NOTE | 2018-06-06 14:26 | ER ---
Nurse's Notes [facility] Name: Aracelis Rios Age: 42 yrs Sex: Female : 1975 Arrival Date: 06/06/2018 Time: 13:59 Bed 16 Private MD: Rosales Rivera T Diagnosis: Epilepsy and recurrent seizures Presentation: 06/06 14:01 Presenting complaint: Patient states: had a seizure this morning and needs a work note. sv Pt stated that her friend witnessed a grand mal seizure. Reports that her neurologist took her off of her seizure medications. Transition of care: patient was not received from another setting of care. Onset of symptoms was June 06, 2018. Care prior to arrival: None. 14:01 Method Of Arrival: Ambulatory sv 14:01 Acuity: PRASANNA 3 sv 14:29 Risk Assessment: Do you want to hurt yourself or someone else? Patient reports no em desire to harm self or others. Initial Sepsis Screen: Does the patient meet any 2 criteria? No. Patient's initial sepsis screen is negative. Does the patient have a suspected source of infection? No. Patient's initial sepsis screen is negative. Triage Assessment: 14:01 General: Appears in no apparent distress. comfortable, well developed, Behavior is sv calm, cooperative, appropriate for age. Pain: Complains of pain in "body" Pain currently is 2 out of 10 on a pain scale. Quality of pain is described as soreness. Neuro: Level of Consciousness is awake, alert, obeys commands, Oriented to person, place, time, situation, Moves all extremities. Full function Gait is steady, Speech is normal. Respiratory: Respiratory effort is even, unlabored, Respiratory pattern is regular, symmetrical. Derm: Skin is pink, warm \\T\\ dry. Historical: - Allergies: 14:02 Amoxicillin; sv 14:02 Demerol; sv 14:02 ketorolac tromethamine; sv 14:02 Ondansetron HCl; sv 14:02 PENICILLINS; sv - PMHx: 14:02 Anxiety; Depression; PTSD; Seizures; sv - PSHx: 14:02 Hysterectomy; ; Appendectomy; sv - Immunization history:: Adult Immunizations up to date, Flu vaccine is not up to date. - Social history:: Smoking status: Patient/guardian denies using tobacco. - Ebola Screening: : No symptoms or risks identified at this time. Screenin:20 Abuse screen: Denies threats or abuse. Nutritional screening: No deficits noted. em Tuberculosis screening: No symptoms or risk factors identified. Fall Risk None identified. Assessment: 14:20 General: Appears in no apparent distress. comfortable, Behavior is calm, cooperative, em states, " just need a work note, I feel fine, my work just wants me to get a note so I can go back". Pain: Denies pain. Neuro: Level of Consciousness is awake, alert, obeys commands, Oriented to person, place, time, situation. Cardiovascular: Capillary refill < 3 seconds Patient's skin is warm and dry. Respiratory: Airway is patent Respiratory effort is even, unlabored, Respiratory pattern is regular, symmetrical. GI: Abdomen is flat, Abd is soft and non tender X 4 quads. : No signs and/or symptoms were reported regarding the genitourinary system. EENT: No signs and/or symptoms were reported regarding the EENT system. Derm: Skin is intact, Skin is pink, warm \\T\\ dry. Musculoskeletal: Range of motion: intact in all extremities. 14:20 Reassessment: I agree with assessment completed by Mauro Anders LVN . aa5 Vital Signs: 14:02 BP 124 / 94; Pulse 100; Resp 18; Temp 98.7; Pulse Ox 100% ; Weight 54.43 kg; Height 5 sv ft. 1 in. (154.94 cm); Pain 2/10; 14:02 Body Mass Index 22.67 (54.43 kg, 154.94 cm) sv Mike Coma Score: 14:01 Eye Response: spontaneous(4). Verbal Response: oriented(5). Motor Response: obeys sv commands(6). Total: 15. ED Course: 13:59 Patient arrived in ED. mr 13:59 Rosales Rivera MD is Private Physician. mr 14:02 Triage completed. sv 14:03 Arm band placed on. sv 14:12 Mauro Anders LVN is Primary Nurse. em 14:19 Adam Pickering PA is PHCP. jr8 14:19 Karel Wallace MD is Attending Physician. jr8 14:20 Patient has correct armband on for positive identification. Bed in low position. Call em light in reach. Adult w/ patient. 14:20 No provider procedures requiring assistance completed. Patient did not have IV access em during this emergency room visit. Administered Medications: No medications were administered Outcome: 14:25 Discharge ordered by MD. isaac 14:30 Discharged to home ambulatory, with family. em 14:30 Condition: good 14:30 Discharge instructions given to patient, Instructed on discharge instructions, follow up and referral plans. Demonstrated understanding of instructions, follow-up care. 14:35 Patient left the ED. em Signatures: Karie Whalen, Janie Liang RN mr Chago, Mauro, BEATER OUT BEATER OUT em Ericka Rajput RN RN aa5 Adam Pickering PA JEFF jr8 Corrections: (The following items were deleted from the chart) 14:31 14:20 General: Appears in no apparent distress. comfortable, Behavior is calm, em cooperative, em
[2018-06-06 14:47] VITALS: BP 124/94; TEMP 98.7; O2SAT 100
== END 2018-06-06 14:35 | disposition home or self-care (01) ==
LOC: ER 13:56
DX: G40.909 Epilepsy, unspecified, not intractable, without status epilepticus (principal); Z88.0 Allergy status to penicillin; Z88.1 Allergy status to other antibiotic agents; Z88.6 Allergy status to analgesic agent
CPT/HCPCS: 99281

== ENCOUNTER 2018-06-18 00:05 | Emergency (ER) | payer SELFPAY ==
[2018-06-18] MEDS ORDERED: PROMETHAZINE 25 MG/ML VIAL ONE (00:49)
[2018-06-18] MEDS ORDERED: NA CHLORIDE 0.9% 1,000 ML ONE (00:50)
[2018-06-18] MEDS ORDERED: FAMOTIDINE 20 MG/2 ML VIAL IV ONE (00:50)
[2018-06-18] MEDS ORDERED: DICYCLOMINE HCL 10 MG CAP ONE (00:50)
[2018-06-18 01:03] LABS: Absolute Lymphocytes (CBC) 1.9 K/uL (0.7-4.9); Absolute Monocytes 0.8 K/uL (0.1-1.3); Absolute Neutrophil 4.2 K/uL (1.8-8.0); Basophils % 1.2 % (0-1.3); Eosinophils % 0.9 % (0-4.4); Hematocrit 32.7 % (36.0-45.0); Lymphocytes % 26.9 % (15.3-44.8); MCH 32.4 pg (27.0-35.0); MCV 95.4 fL (80-100); MPV 9.7 fL (7.6-11.3); Monocytes % 11.1 % (3.3-12.3); RBC Red Blood Cell Count 3.43 M/uL (3.86-4.86)
[2018-06-18 01:21] LABS: ALT/SGPT 20 U/L (12-78); AST/SGOT 10 U/L (15-37); Albumin 3.8 g/dL (3.4-5.0); Alkaline Phosphatase 103 U/L (45-117); BUN Blood Urea Nitrogen 12 mg/dL (7-18); Bicarbonate 25 mmol/L (21-32); Bilirubin Direct < 0.1 mg/dL (0-0.2); Bilirubin Total 0.1 mg/dL (0.2-1.0); Glucose Level 81 mg/dL (74-106); Lipase 287 U/L (73-393); Potassium 3.3 mmol/L (3.5-5.1); Protein, Total 7.2 g/dL (6.4-8.2); Sodium Level 141 mmol/L (136-145)
[2018-06-18] MEDS ORDERED: BENZTROPINE 2 MG/2 ML VIAL ONE (01:24)
[2018-06-18 01:46] LABS: Urine Blood TRACE (NEG); Urine Glucose NEGATIVE (NEG); Urine Protein NEGATIVE (NEG)
[2018-06-18 02:07] LABS: Urine Bacteria >50 /HPF (<20); Urine Culture Reflex Order REFLEXED; Urine RBC NONE SEEN /HPF (NONE SEEN)
--- NOTE | 2018-06-18 02:45 | EDPHYS ---
Physician Documentation [facility] Name: Aracelis Rios Age: 42 yrs Sex: Female : 1975 Arrival Date: 06/18/2018 Time: 00:08 Bed 7 Private MD: Rosales Rivera T ED Physician Oscar Colunga HPI: 06/18 00:40 This 42 yrs old Female presents to ER via Ambulatory with complaints of cp Vomiting, Fever, Abdominal Pain, Diarrhea. 00:40 The patient presents to the emergency department with nausea, that is moderate, cp vomiting, that is intermittent, diarrhea, that is intermittent. Onset: The symptoms/episode began/occurred today. Associated signs and symptoms: Pertinent positives: abdominal pain, fever, Pertinent negatives: GI bleeding. Severity of symptoms: in the emergency department the symptoms are unchanged despite home interventions. 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 - Social history:: Smoking status: Patient/guardian denies using tobacco. - Ebola Screening: : No symptoms or risks identified at this time. ROS: 00:45 Eyes: Negative for injury, pain, redness, and discharge. cp 00:45 Constitutional: Negative for fever. 00:45 ENT: Negative for drainage from ear(s), ear pain, sore throat, difficulty swallowing, difficulty handling secretions. 00:45 Cardiovascular: Negative for chest pain. 00:45 Respiratory: Negative for cough, shortness of breath, wheezing. 00:45 Abdomen/GI: Positive for abdominal pain, nausea, vomiting, and diarrhea, Negative for constipation, anorexia, black/tarry stool, rectal bleeding. 00:45 Back: Negative for pain at rest, pain with movement. 00:45 : Negative for urinary symptoms. 00:45 Skin: Negative for cellulitis, rash. 00:45 Neuro: Negative for altered mental status, headache, weakness. 00:45 All other systems are negative. Exam: 00:52 Head/Face: Normocephalic, atraumatic. cp 00:52 Constitutional: The patient appears in no acute distress, alert, awake, non-toxic, well developed, well nourished, uncomfortable. 00:52 Eyes: Periorbital structures: appear normal, Conjunctiva: normal, no exudate, no cp injection, Sclera: no appreciated abnormality, Lids and lashes: appear normal, bilaterally. 00:52 ENT: External ear(s): are unremarkable, Nose: is normal, Mouth: Lips: moist, Oral mucosa: moist, Posterior pharynx: is normal, airway is patent, no erythema, no exudate. 00:52 Neck: ROM/movement: is normal, is supple, without pain, no range of motions limitations, no nuchal rigidity. 00:52 Chest/axilla: Inspection: normal, Palpation: is normal, no crepitus, no tenderness. 00:52 Cardiovascular: Rate: normal, Rhythm: regular. 00:52 Respiratory: the patient does not display signs of respiratory distress, Respirations: normal, no use of accessory muscles, no retractions, no splinting, no tachypnea, labored breathing, is not present, Breath sounds: are clear throughout, no decreased breath sounds, no stridor, no wheezing. 00:52 Abdomen/GI: Inspection: abdomen appears normal, Bowel sounds: active, all quadrants, Palpation: soft, in all quadrants, moderate abdominal tenderness, in the right lower quadrant and left lower quadrant, rebound tenderness, is not appreciated, involuntary guarding, is not appreciated. 00:52 Skin: cellulitis, is not appreciated, no rash present. Vital Signs: 00:27 BP 117 / 80; Pulse 75; Resp 18; Temp 97.8; Pulse Ox 98% on R/A; Weight 56.7 kg (R); ak1 Height 5 ft. 1 in. (154.94 cm) (R); Pain 6/10; 00:58 BP 98 / 72; Pulse 87; Resp 17; Pulse Ox 97% on R/A; tl1 01:27 BP 118 / 69; Pulse 82; Resp 17; Pulse Ox 100% on R/A; Pain 0/10; tl1 02:06 BP 108 / 73; Pulse 83; Resp 17; Pulse Ox 100% on R/A; Pain 0/10; tl1 02:48 BP 110 / 72; Pulse 75; Resp 17; Temp 98; Pulse Ox 100% on R/A; Pain 0/10; tl1 00:27 Body Mass Index 23.62 (56.70 kg, 154.94 cm) ak1 MDM: 00:22 Patient medically screened. cp 01:00 Differential diagnosis: gastritis, pancreatitis, appendicitis, diverticulitis, viral cp gastroenteritis, gastroenteritis. 02:43 Data reviewed: vital signs, nurses notes, lab test result(s). cp 02:43 Counseling: I had a detailed discussion with the patient and/or guardian regarding: the cp historical points, exam findings, and any diagnostic results supporting the discharge/admit diagnosis, lab results, to return to the emergency department if symptoms worsen or persist or if there are any questions or concerns that arise at home. Response to treatment: the patient's symptoms have markedly improved after treatment, VSS. Vomiting resolved and nausea improved. Patient refuses CT at this time. Will discharge to home for continued monitoring. 11 00:33 Order name: Basic Metabolic Panel; Complete Time: 02:39 cp 06/18 02:39 Interpretation: Normal except: K 3.3; CL 109. cp 06/18 00:33 Order name: CBC with Diff; Complete Time: 02:39 cp 06/18 02:40 Interpretation: Normal except: RBC 3.43; HGB 11.1; HCT 32.7. cp 06/18 00:33 Order name: Creatinine for Radiology; Complete Time: 02:39 cp 06/18 00:33 Order name: Hepatic Function; Complete Time: 02:39 cp 06/18 02:41 Interpretation: Normal except: AST 10; BILIT 0.1. cp 06/18 00:33 Order name: Lipase; Complete Time: 02:39 cp 06/18 00:33 Order name: Urine Microscopic Only; Complete Time: 02:39 cp 06/18 00:42 Order name: Urine Dipstick--Ancillary (enter results); Complete Time: 02:39 mw2 06/18 00:42 Order name: Urine --Ancillary (enter results); Complete Time: 02:39 mw2 06/18 02:34 Order name: Urine Culture EDMS 06/18 00:33 Order name: IV Saline Lock; Complete Time: 00:40 cp 06/18 00:33 Order name: Labs collected and sent; Complete Time: 00:40 cp 06/18 00:33 Order name: Urine Dipstick-Ancillary (obtain specimen); Complete Time: 00:46 cp 06/18 00:33 Order name: Urine Test (obtain specimen); Complete Time: 00:46 cp Administered Medications: 00:51 Drug: Pepcid 20 mg Route: IVP; Infused Over: 2 mins; Site: right antecubital; tl1 01:30 Follow up: Response: No adverse reaction; Marked relief of symptoms tl1 00:51 Drug: Bentyl 20 mg Route: PO; tl1 01:28 Follow up: Response: No adverse reaction; Marked relief of symptoms; Pain is decreased tl1 00:51 Drug: Phenergan 25 mg Route: IVP; Infused Over: 2 mins; Site: right antecubital; tl1 01:28 Follow up: Response: Adverse reaction, Physician notified; Anxiety increased; Nausea is tl1 decreased 00:52 Drug: NS 0.9% 1000 ml Route: IV; Rate: 1 bolus; Site: right antecubital; tl1 01:30 Follow up: IV Status: Completed infusion tl1 01:18 Drug: COgentin 1 mg Route: IVP; Infused Over: 2 mins; Site: right antecubital; tl1 01:28 Follow up: Response: No adverse reaction; Marked relief of symptoms; Anxiety decreased tl1 Disposition: 06/18/18 02:44 Discharged to Home. Impression: Nausea and vomiting, Vomiting, unspecified. - Condition is Stable. - Discharge Instructions: Diarrhea, Adult, Nausea and Vomiting, Adult. - Prescriptions for Bentyl 20 mg Oral Tablet - take 1 tablet by ORAL route every 6 hours As needed; 20 tablet. - Work release form, Medication Reconciliation Form, Thank You Letter, Antibiotic Education, Prescription Opioid Use form. - Follow up: Emergency Department; When: As needed; Reason: Worsening of condition. - Problem is new. - Symptoms have improved. Addendum: 06/19/2018 04:05 Co-signature as Attending Physician, Oscar Colunga MD I agree with the assessment and w a plan of care. Signatures: Dispatcher [employer] EDMS Caitlyn Adkins RN RN tl1 Bre Lucio RN RN ak1 Geraldo Duff PA PA Oscar Mason MD MD wa Corrections: (The following items were deleted from the chart) 06/18 02:53 02:44 06/18/2018 02:44 Discharged to Home. Impression: Nausea and vomiting; Vomiting, tl1 unspecified. Condition is Stable. Forms are Medication Reconciliation Form, Thank You Letter, Antibiotic Education, Prescription Opioid Use. Follow up: Emergency Department; When: As needed; Reason: Worsening of condition. Problem is new. Symptoms have improved. cp
--- NOTE | 2018-06-18 02:45 | ER ---
Nurse's Notes [facility] Name: Aracelis Rios Age: 42 yrs Sex: Female : 1975 Arrival Date: 06/18/2018 Time: 00:08 Bed 7 Private MD: Rosales Rivera T Diagnosis: Nausea and vomiting;Vomiting, unspecified Presentation: 06/18 00:28 Presenting complaint: Patient states: generalized abd pain with N/V/D started today. ak1 Transition of care: patient was not received from another setting of care. Onset of symptoms was June 18, 2018. Risk Assessment: Do you want to hurt yourself or someone else? Patient reports no desire to harm self or others. Initial Sepsis Screen: Does the patient meet any 2 criteria? No. Patient's initial sepsis screen is negative. Does the patient have a suspected source of infection? No. Patient's initial sepsis screen is negative. Care prior to arrival: None. 00:28 Method Of Arrival: Ambulatory ak1 00:28 Acuity: PRASANNA 3 ak1 Triage Assessment: 00:30 General: Appears in no apparent distress. Behavior is calm, cooperative. Pain: ak1 Complains of pain in abdomen. EENT: No signs and/or symptoms were reported regarding the EENT system. Neuro: No deficits noted. Cardiovascular: No deficits noted. Respiratory: No deficits noted. GI: Abdomen is flat, Bowel sounds present X 4 quads. Reports lower abdominal pain, upper abdominal pain, cramping, diarrhea, nausea, vomiting. : No signs and/or symptoms were reported regarding the genitourinary system. Derm: No signs and/or symptoms reported regarding the dermatologic system. Musculoskeletal: No signs and/or symptoms reported regarding the musculoskeletal system. 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 - Social history:: Smoking status: Patient/guardian denies using tobacco. - Ebola Screening: : No symptoms or risks identified at this time. Screenin:33 Abuse screen: Denies threats or abuse. Denies injuries from another. Nutritional ak1 screening: No deficits noted. Tuberculosis screening: No symptoms or risk factors identified. Fall Risk None identified. Assessment: 00:46 Reassessment: Patient appears in no apparent distress at this time. No changes from ak1 previously documented assessment. see triage assessment. 02:49 Reassessment: Patient and/or family updated on plan of care and expected duration. Pain tl1 level reassessed. Patient is alert, oriented x 3, equal unlabored respirations, skin warm/dry/pink. Patient denies pain at this time. Patient states feeling better. Patient states symptoms have improved. GI: Bowel sounds present X 4 quads. Abd is soft and non tender X 4 quads. Patient currently denies diarrhea, nausea. Vital Signs: 00:27 BP 117 / 80; Pulse 75; Resp 18; Temp 97.8; Pulse Ox 98% on R/A; Weight 56.7 kg (R); ak1 Height 5 ft. 1 in. (154.94 cm) (R); Pain 6/10; 00:58 BP 98 / 72; Pulse 87; Resp 17; Pulse Ox 97% on R/A; tl1 01:27 BP 118 / 69; Pulse 82; Resp 17; Pulse Ox 100% on R/A; Pain 0/10; tl1 02:06 BP 108 / 73; Pulse 83; Resp 17; Pulse Ox 100% on R/A; Pain 0/10; tl1 02:48 BP 110 / 72; Pulse 75; Resp 17; Temp 98; Pulse Ox 100% on R/A; Pain 0/10; tl1 00:27 Body Mass Index 23.62 (56.70 kg, 154.94 cm) ak ED Course: 00:08 Patient arrived in ED. es 00:09 Rosales Rivera MD is Private Physician. es 00:22 Geraldo Duff PA is PHCP. cp 00:22 Oscar Colunga MD is Attending Physician. cp 00:28 Triage completed. ak1 00:30 Arm band placed on Patient placed in an exam room, on a stretcher, on pulse oximetry, ak1 Patient notified of wait time. 00:33 Patient has correct armband on for positive identification. Placed in gown. Bed in low ak1 position. Call light in reach. Side rails up X 1. Adult w/ patient. Pulse ox on. NIBP on. 00:45 Bre Lucio, RN is Primary Nurse. ak1 00:46 Inserted saline lock: 20 gauge in right antecubital area, using aseptic technique. ak1 ,using aseptic technique. placed by Caitlyn Ahmadi RN Blood collected. 02:49 No provider procedures requiring assistance completed. IV discontinued, intact, tl1 bleeding controlled, No redness/swelling at site. Pressure dressing applied. Administered Medications: 00:51 Drug: Pepcid 20 mg Route: IVP; Infused Over: 2 mins; Site: right antecubital; tl1 01:30 Follow up: Response: No adverse reaction; Marked relief of symptoms tl1 00:51 Drug: Bentyl 20 mg Route: PO; tl1 01:28 Follow up: Response: No adverse reaction; Marked relief of symptoms; Pain is decreased tl1 00:51 Drug: Phenergan 25 mg Route: IVP; Infused Over: 2 mins; Site: right antecubital; tl1 01:28 Follow up: Response: Adverse reaction, Physician notified; Anxiety increased; Nausea is tl1 decreased 00:52 Drug: NS 0.9% 1000 ml Route: IV; Rate: 1 bolus; Site: right antecubital; tl1 01:30 Follow up: IV Status: Completed infusion tl1 01:18 Drug: COgentin 1 mg Route: IVP; Infused Over: 2 mins; Site: right antecubital; tl1 01:28 Follow up: Response: No adverse reaction; Marked relief of symptoms; Anxiety decreased tl1 Outcome: 02:44 Discharge ordered by MD. cp 02:53 Patient left the ED. tl1 Signatures: Amalia Ashraf Tonya, RN RN tl1 Bre Lucio RN RN ak1 Geraldo Duff PA PA cp
[2018-06-18 03:09] VITALS: O2SAT 100
[2018-06-18 03:12] VITALS: BP 110/72; TEMP 98
== END 2018-06-18 02:53 | disposition home or self-care (01) ==
LOC: ER 00:05
DX: R11.10 Vomiting, unspecified (principal); F41.9 Anxiety disorder, unspecified; F32.9 Major depressive disorder, single episode, unspecified; Z88.0 Allergy status to penicillin; Z88.1 Allergy status to other antibiotic agents; Z88.5 Allergy status to narcotic agent; Z88.8 Allergy status to other drugs, medicaments and biological substances
CPT/HCPCS: 36415; 80048; 80076; 81003; 81015; 81025; 83690; 85025; 87086; 87088; 96361; 96374; 96375; 99284; J0515; J2550; J7030

== ENCOUNTER 2018-10-06 08:21 | Emergency (ER) | payer SELFPAY ==
--- NOTE | 2018-10-06 09:10 | ER ---
Nurse's Notes [facility] Name: Aracelis Rios Age: 43 yrs Sex: Female : 1975 Arrival Date: 10/06/2018 Time: 08:24 Bed 18 Private MD: Oscar Azevedo E Diagnosis: Acute upper respiratory infection, unspecified;Viral infection, unspecified Presentation: 10/06 08:33 Presenting complaint: Patient states: i have had a bad cough and cold for 3 or 4 days, tw2 when i eat i get a bad pain at night in the center of my abdomen, at night i will cough so bad it makes me throw up. Transition of care: patient was not received from another setting of care. Onset of symptoms was October 06, 2018. Risk Assessment: Do you want to hurt yourself or someone else? Patient reports no desire to harm self or others. Initial Sepsis Screen: Does the patient meet any 2 criteria? No. Patient's initial sepsis screen is negative. Does the patient have a suspected source of infection? No. Patient's initial sepsis screen is negative. Care prior to arrival: None. 08:33 Method Of Arrival: Ambulatory tw2 08:33 Acuity: PRASANNA 4 tw2 Triage Assessment: 08:38 General: Appears in no apparent distress. slender, Behavior is calm, cooperative, tw2 appropriate for age. Pain: Complains of pain in epigastric area Aggravated by cough. GI: Reports nausea, with cough. 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 - Social history:: Smoking status: Patient/guardian denies using tobacco. - Ebola Screening: : Patient denies travel to an Ebola-affected area in the 21 days before illness onset. Screenin:39 Abuse screen: Denies threats or abuse. Nutritional screening: No deficits noted. tw2 Tuberculosis screening: No symptoms or risk factors identified. Fall Risk None identified. Assessment: 08:43 General: Appears in no apparent distress. Behavior is calm, cooperative, appropriate tw2 for age. Neuro: Level of Consciousness is awake, alert, obeys commands, Oriented to person, place, time, situation. Cardiovascular: Patient's skin is warm and dry. Respiratory: Reports cough that is non-productive, Airway is patent Respiratory effort is even, unlabored, Respiratory pattern is regular, symmetrical. GI: Bowel sounds present X 4 quads. Abd is soft X 4 quads. : No signs and/or symptoms were reported regarding the genitourinary system. EENT: No signs and/or symptoms were reported regarding the EENT system. Derm: No signs and/or symptoms reported regarding the dermatologic system. Musculoskeletal: 09:15 Reassessment: Patient appears in no apparent distress at this time. No changes from tw2 previously documented assessment. Patient is alert, oriented x 3, equal unlabored respirations, skin warm/dry/pink. Vital Signs: 08:34 Pulse 89; Resp 18; Temp 98.2(O); Pulse Ox 100% on R/A; Pain 6/10; tw2 ED Course: 08:24 Patient arrived in ED. mr 08:24 Oscar Azevedo MD is Private Physician. mr 08:32 Vernon Vazquez MD is Attending Physician. kdr 08:33 Rachna Butler RN is Primary Nurse. tw2 08:34 Triage completed. tw2 08:38 Arm band placed on. tw2 08:39 Bed in low position. Call light in reach. Pulse ox on. NIBP on. tw2 09:08 Oscar Azevedo MD is Referral Physician. kdr 09:14 No provider procedures requiring assistance completed. IV discontinued, intact, tw2 bleeding controlled, No redness/swelling at site. Pressure dressing applied. Administered Medications: No medications were administered Outcome: 09:09 Discharge ordered by . kdr 09:14 Discharged to home ambulatory. tw2 09:14 Condition: stable 09:14 Discharge instructions given to patient, Instructed on discharge instructions, follow up and referral plans. medication usage, Demonstrated understanding of instructions, follow-up care, medications, Prescriptions given X 2. 09:16 Patient left the ED. tw2 Signatures: Vernon Vazquez MD MD kdr Rivera, Mary mr Wise, Tara, RN RN tw2
--- NOTE | 2018-10-06 09:10 | EDPHYS ---
Physician Documentation [facility] Name: Aracelis Rios Age: 43 yrs Sex: Female : 1975 Arrival Date: 10/06/2018 Time: 08:24 Bed 18 Private MD: Oscar Azevedo E ED Physician Vernon Vazquez HPI: 10/06 08:50 This 43 yrs old Female presents to ER via Ambulatory with complaints of Cough. kdr 08:50 The patient or guardian reports cough, that is intermittent, described as mild, kdr difficulty breathing. Onset: The symptoms/episode began/occurred gradually, 4 day(s) ago. Severity of symptoms: At their worst the symptoms were mild, in the emergency department the symptoms are unchanged. Modifying factors: The symptoms are alleviated by nothing, the symptoms are aggravated by exertion, talking. Associated signs and symptoms: Pertinent positives: nausea, rhinorrhea, sore throat. The patient has experienced similar episodes in the past, a few times. The patient has not recently seen a physician. 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 - Social history:: Smoking status: Patient/guardian denies using tobacco. - Ebola Screening: : Patient denies travel to an Ebola-affected area in the 21 days before illness onset. ROS: 08:50 Constitutional: Negative for fever, chills, and weight loss, Eyes: Negative for injury, kdr pain, redness, and discharge, Neck: Negative for injury, pain, and swelling, Cardiovascular: Negative for chest pain, palpitations, and edema, Abdomen/GI: Negative for abdominal pain, nausea, vomiting, diarrhea, and constipation, Back: Negative for injury and pain, : Negative for injury, bleeding, discharge, and swelling, MS/Extremity: Negative for injury and deformity, Skin: Negative for injury, rash, and discoloration, Neuro: Negative for headache, weakness, numbness, tingling, and seizure activity. Psych: Negative for depression, anxiety, suicide ideation, homicidal ideation, and hallucinations, Allergy/Immunology: Negative for hives, rash, and allergies, Endocrine: Negative for neck swelling, polydipsia, polyuria, polyphagia, and marked weight changes, Hematologic/Lymphatic: Negative for swollen nodes, abnormal bleeding, and unusual bruising. 08:50 ENT: Positive for sore throat, Negative for drainage from ear(s), dental pain, difficulty swallowing. 08:50 Respiratory: Positive for cough, "sounds productive", wheezing. Exam: 08:50 Constitutional: This is a well developed, well nourished patient who is awake, alert, kdr and in no acute distress. Head/Face: Normocephalic, atraumatic. Eyes: Pupils equal round and reactive to light, extra-ocular motions intact. Lids and lashes normal. Conjunctiva and sclera are non-icteric and not injected. Cornea within normal limits. Periorbital areas with no swelling, redness, or edema. Neck: Trachea midline, no thyromegaly or masses palpated, and no cervical lymphadenopathy. Supple, full range of motion without nuchal rigidity, or vertebral point tenderness. No Meningismus. Chest/axilla: Normal chest wall appearance and motion. Nontender with no deformity. No lesions are appreciated. Cardiovascular: Regular rate and rhythm with a normal S1 and S2. No gallops, murmurs, or rubs. Normal PMI, no JVD. No pulse deficits. Abdomen/GI: Soft, non-tender, with normal bowel sounds. No distension or tympany. No guarding or rebound. No evidence of tenderness throughout. Back: No spinal tenderness. No costovertebral tenderness. Full range of motion. Skin: Warm, dry with normal turgor. Normal color with no rashes, no lesions, and no evidence of cellulitis. MS/ Extremity: Pulses equal, no cyanosis. Neurovascular intact. Full, normal range of motion. Neuro: Awake and alert, GCS 15, oriented to person, place, time, and situation. Cranial nerves II-XII grossly intact. Motor strength 5/5 in all extremities. Sensory grossly intact. Cerebellar exam normal. Normal gait. Psych: Awake, alert, with orientation to person, place and time. Behavior, mood, and affect are within normal limits. 08:50 Respiratory: the patient does not display signs of respiratory distress, Respirations: normal, Breath sounds: rales, that are mild, are scattered. Vital Signs: 08:34 Pulse 89; Resp 18; Temp 98.2(O); Pulse Ox 100% on R/A; Pain 6/10; tw2 MDM: 08:50 Data reviewed: vital signs, nurses notes. Counseling: I had a detailed discussion with kdr the patient and/or guardian regarding: the historical points, exam findings, and any diagnostic results supporting the discharge/admit diagnosis, the need for outpatient follow up. 09:09 Patient medically screened. kdr Administered Medications: No medications were administered Disposition: 10/06/18 09:09 Discharged to Home. Impression: Acute upper respiratory infection, unspecified, Viral infection, unspecified. - Condition is Stable. - Discharge Instructions: Upper Respiratory Infection, Adult, Viral Respiratory Infection, [id number]. - Prescriptions for Mucinex DM 30- 600 mg Oral tablet extended release 12 hr - take 1 tablet by ORAL route every 12 hours as needed; 20 tablet. Tessalon Perles 100 mg Oral Capsule - take 1 capsule by ORAL route every 8 hours As needed; 15 capsule. - Medication Reconciliation Form, Thank You Letter, Work release form form. - Follow up: Oscar Azevedo MD; When: 2 - 3 days; Reason: If symptoms return, Further diagnostic work-up, Recheck today's complaints, Continuance of care, Re-evaluation by your physician. - Problem is new. - Symptoms are unchanged. Signatures: Vernon Vazquez MD MD kdr Rachna Butler RN RN tw2 Corrections: (The following items were deleted from the chart) 09:16 09:09 10/06/2018 09:09 Discharged to Home. Impression: Acute upper respiratory tw2 infection, unspecified; Viral infection, unspecified. Condition is Stable. Forms are Work release form, Medication Reconciliation Form, Thank You Letter, Antibiotic Education, Prescription Opioid Use. Follow up: Oscar Azevedo; When: 2 - 3 days; Reason: If symptoms return, Further diagnostic work-up, Recheck today's complaints, Continuance of care, Re-evaluation by your physician. Problem is new. Symptoms are unchanged. kdr
[2018-10-06 09:26] VITALS: TEMP 98.2; O2SAT 100
== END 2018-10-06 09:16 | disposition home or self-care (01) ==
LOC: ER 08:21
DX: J06.9 Acute upper respiratory infection, unspecified (principal); B34.9 Viral infection, unspecified; F43.10 Post-traumatic stress disorder, unspecified; F32.9 Major depressive disorder, single episode, unspecified; F41.9 Anxiety disorder, unspecified; Z88.6 Allergy status to analgesic agent; Z88.5 Allergy status to narcotic agent; Z88.0 Allergy status to penicillin

== ENCOUNTER 2018-10-13 13:06 | Emergency (ER) | payer SELFPAY ==
[2018-10-13 14:46] LABS: Absolute Lymphocytes (CBC) 1.3 K/uL (0.7-4.9); Absolute Monocytes 0.8 K/uL (0.1-1.3); Basophils % 0.7 % (0-1.3); Eosinophils % 1.2 % (0-4.4); Hematocrit 36.7 % (36.0-45.0); Lymphocytes % 17.7 % (15.3-44.8); MPV 8.8 fL (7.6-11.3); Monocytes % 11.1 % (3.3-12.3); RBC Red Blood Cell Count 3.97 M/uL (3.86-4.86)
[2018-10-13 14:47] LABS: Protime INR 1.09
--- NOTE | 2018-10-13 14:52 | RAD REPORT ---
EXAM DESCRIPTION: RAD - Chest Single View - 10/13/2018 2:48 pm CLINICAL HISTORY: CHEST PAIN Chest pain. COMPARISON: Chest Single View dated 01/10/2018; Chest Single View dated 10/22/2016; CHEST SINGLE VIEW d ated 06/27/2015; CHEST SINGLE VIEW dated 06/03/2015 FINDINGS: Portable technique limits examination quality. The lungs are grossly clear. The heart is normal in size. No displaced fractures. IMPRESSION: No acute intrathoracic process suspected.
[2018-10-13 15:04] LABS: ALT/SGPT 17 U/L (12-78); AST/SGOT 7 U/L (15-37); Albumin 3.9 g/dL (3.4-5.0); Alkaline Phosphatase 129 U/L (45-117); BUN Blood Urea Nitrogen 16 mg/dL (7-18); Bicarbonate 28 mmol/L (21-32); Bilirubin Direct 0.1 mg/dL (0-0.2); Bilirubin Total 0.5 mg/dL (0.2-1.0); Glucose Level 107 mg/dL (74-106); Lipase 76 U/L (73-393); Potassium 3.1 mmol/L (3.5-5.1); Protein, Total 7.5 g/dL (6.4-8.2); Sodium Level 143 mmol/L (136-145); Troponin (Emerg Dept Use Only) < 0.02 ng/mL (0.0-0.045)
--- NOTE | 2018-10-13 15:58 | EKG ---
Test Date: 2018-10-13 Test Time: 13:20:27 Rivet Flunky: LIAM MEASUREMENT RESULTS: Intervals: Rate: 101 ND: 120 QRSD: 70 QT: 358 QTc: 464 [place]: P: 70 ND: 120 QRS: 82 T: 73 INTERPRETIVE STATEMENTS: Sinus tachycardia Otherwise normal ECG Compared to ECG 01/10/2018 08:19:58 Sinus rhythm no longer present Sinus arrhythmia no longer present Electronically Signed On 10-13-18 15:57:50 ROUTE DELIVERY SERVICE DRIVER by Valdez Alvarado
--- NOTE | 2018-10-13 16:01 | RAD REPORT ---
EXAM DESCRIPTION: CT - Head Brain Wo Cont - 10/13/2018 3:25 pm CLINICAL HISTORY: Seizure COMPARISON: 2017 TECHNIQUE: Computed axial tomography of the head was obtained. IV contrast was not requested. All CT scans are performed using dose optimization technique as appropriate and may include automated exposure control or mA/KV adjustment according to patient size. FINDINGS: An intracranial bleed is not seen . The ventricles are normal in caliber. No extra-axial fluid collection is noted. Fluid within the sinuses/ mastoids is not seen. IMPRESSION: No acute intracranial abnormality is seen. If patient's symptoms persist MRI of the bra in would be recommended.
--- NOTE | 2018-10-13 16:37 | EDPHYS ---
Physician Documentation [facility] Name: Aracelis Rios Age: 43 yrs Sex: Female : 1975 Arrival Date: 10/13/2018 Time: 13:08 Bed 17 Private MD: ED Physician Vernon Vazquez HPI: 10/13 15:28 This 43 yrs old Female presents to ER via Ambulatory with complaints of Chest jr8 Pain. 15:28 Patient stated that she was very tired over the past few days and needed to get things jr8 done. Had used cocaine about 3 days ago. Has been having headaches and chest pain prior to use but now is more intensified . Severity of symptoms: At their worst the symptoms were moderate in the emergency department the symptoms are unchanged. It is unknown whether or not the patient has had similar symptoms in the past. The patient has not recently seen a physician. 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 - Social history:: Smoking status: Patient/guardian denies using tobacco, Patient uses alcohol, occasionally. IV drugs, cocaine. - Ebola Screening: : Patient denies travel to an Ebola-affected area in the 21 days before illness onset. ROS: 15:28 Eyes: Negative for injury, pain, redness, and discharge, ENT: Negative for injury, jr8 pain, and discharge, Neck: Negative for injury, pain, and swelling, Respiratory: Negative for shortness of breath, cough, wheezing, and pleuritic chest pain, Abdomen/GI: Negative for abdominal pain, nausea, vomiting, diarrhea, and constipation, Back: Negative for injury and pain, MS/Extremity: Negative for injury and deformity, Skin: Negative for injury, rash, and discoloration. 15:28 Cardiovascular: Positive for chest pain, Negative for edema, orthopnea, palpitations, paroxysmal nocturnal dyspnea. 15:28 Neuro: Positive for headache, Negative for altered mental status, dizziness, gait disturbance, hearing loss, loss of consciousness, numbness, seizure activity, speech changes, syncope, near syncope, tingling, tinnitus, tremor, visual changes, weakness. Exam: 16:35 Eyes: Pupils equal round and reactive to light, extra-ocular motions intact. Lids and jr8 lashes normal. Conjunctiva and sclera are non-icteric and not injected. Cornea within normal limits. Periorbital areas with no swelling, redness, or edema. ENT: Nares patent. No nasal discharge, no septal abnormalities noted. Tympanic membranes are normal and external auditory canals are clear. Oropharynx with no redness, swelling, or masses, exudates, or evidence of obstruction, uvula midline. Mucous membranes moist. Neck: Trachea midline, no thyromegaly or masses palpated, and no cervical lymphadenopathy. Supple, full range of motion without nuchal rigidity, or vertebral point tenderness. No Meningismus. Cardiovascular: Regular rate and rhythm with a normal S1 and S2. No gallops, murmurs, or rubs. Normal PMI, no JVD. No pulse deficits. Respiratory: Lungs have equal breath sounds bilaterally, clear to auscultation and percussion. No rales, rhonchi or wheezes noted. No increased work of breathing, no retractions or nasal flaring. Abdomen/GI: Soft, non-tender, with normal bowel sounds. No distension or tympany. No guarding or rebound. No evidence of tenderness throughout. Back: No spinal tenderness. No costovertebral tenderness. Full range of motion. Skin: Warm, dry with normal turgor. Normal color with no rashes, no lesions, and no evidence of cellulitis. MS/ Extremity: Pulses equal, no cyanosis. Neurovascular intact. Full, normal range of motion. Neuro: Awake and alert, GCS 15, oriented to person, place, time, and situation. Cranial nerves II-XII grossly intact. Motor strength 5/5 in all extremities. Sensory grossly intact. Cerebellar exam normal. Normal gait. Vital Signs: 13:38 BP 111 / 81; Pulse 106; Resp 17; Temp 97.9(TE); Pulse Ox 99% on R/A; Weight 56.7 kg; tw2 Height 5 ft. 1 in. (154.94 cm); Pain 8/10; 13:38 Body Mass Index 23.62 (56.70 kg, 154.94 cm) tw2 MDM: 14:16 Patient medically screened. [facility] 16:35 Data reviewed: vital signs, nurses notes, lab test result(s), EKG, radiologic studies, [facility] CT scan, plain films. Data interpreted: Pulse oximetry: on room air is 99 %. Interpretation: normal. Counseling: I had a detailed discussion with the patient and/or guardian regarding: the historical points, exam findings, and any diagnostic results supporting the discharge/admit diagnosis, lab results, radiology results, the need for outpatient follow up, a family practitioner, to return to the emergency department if symptoms worsen or persist or if there are any questions or concerns that arise at home. ED course: Discussed with patient that she needs to abstain from cocaine use. F/u with PCP. Otherwise without acute cardiac or intracranial findings . 10/13 14:25 Order name: Basic Metabolic Panel; Complete Time: 15:10/13 14:25 Order name: CBC with Diff; Complete Time: 14:53 10/13 14:25 Order name: LFT's; Complete Time: 15:10/13 14:25 Order name: PT-INR; Complete Time: 15:10/13 14:25 Order name: Troponin (emerg Dept Use Only); Complete Time: 15:10/13 14:25 Order name: Lipase; Complete Time: 15:10/13 14:25 Order name: XRAY Chest (1 view); Complete Time: 15:10/13 14:25 Order name: EKG; Complete Time: 14:25 10/13 14:25 Order name: Cardiac monitoring; Complete Time: 14:49 10/13 14:25 Order name: EKG - Nurse/Tech; Complete Time: 14:49 10/13 14:25 Order name: IV Saline Lock; Complete Time: 14:49 10/13 14:25 Order name: Labs collected and sent; Complete Time: 14:49 jr8 10/13 14:25 Order name: O2 Per Protocol; Complete Time: 14:49 jr8 10/13 15:06 Order name: CT Head Brain wo Cont; Complete Time: 16:29 jr8 10/13 14:25 Order name: O2 Sat Monitoring; Complete Time: 14:49 jr8 Administered Medications: No medications were administered Disposition: 10/14 07:24 Co-signature as Attending Physician, Vernon Vazquez MD I agree with the assessment and kdr plan of care. Disposition: 10/13/18 16:36 Discharged to Home. Impression: Headache, Chest pain, unspecified. - Condition is Stable. - Discharge Instructions: Nonspecific Chest Pain, General Headache Without Cause. - Work release form, Medication Reconciliation Form, Thank You Letter, Antibiotic Education, Prescription Opioid Use form. - Follow up: Private Physician; When: 2 - 3 days; Reason: Recheck today's complaints, Continuance of care, Re-evaluation by your physician. - Problem is new. - Symptoms have improved. Signatures: Dispatcher [employer] EDMS Vernon Vazquez MD MD [facility] Adam Pickering PA PA jr8 Rachna Butler RN RN tw2 Roxie Godinez RN RN ls4 Corrections: (The following items were deleted from the chart) 10/13 17:23 16:36 10/13/2018 16:36 Discharged to Home. Impression: Headache; Chest pain, ls4 unspecified. Condition is Stable. Forms are Work release form, Medication Reconciliation Form, Thank You Letter, Antibiotic Education, Prescription Opioid Use. Follow up: Private Physician; When: 2 - 3 days; Reason: Recheck today's complaints, Continuance of care, Re-evaluation by your physician. Problem is new. Symptoms have improved. jr8
--- NOTE | 2018-10-13 16:37 | ER ---
Nurse's Notes [facility] Name: Aracelis Rios Age: 43 yrs Sex: Female : 1975 Arrival Date: 10/13/2018 Time: 13:08 Bed 17 Private MD: Diagnosis: Headache;Chest pain, unspecified Presentation: 10/13 13:37 Presenting complaint: Patient states: i had a seizure last night at work and for like a tw2 week or so i am having chest pain, and now i am having stabbing pain in my eyes into the back of my head and then my hands feel numb. Transition of care: patient was not received from another setting of care. Onset of symptoms was October 13, 2018. Risk Assessment: Do you want to hurt yourself or someone else? Patient reports no desire to harm self or others. Initial Sepsis Screen: Does the patient meet any 2 criteria? No. Patient's initial sepsis screen is negative. Does the patient have a suspected source of infection? No. Patient's initial sepsis screen is negative. Care prior to arrival: None. 13:37 Method Of Arrival: Ambulatory tw2 13:37 Acuity: PRASANNA 3 tw2 Triage Assessment: 13:39 General: Appears in no apparent distress. slender, Behavior is drowsy, talking real tw2 fast. Pain: Complains of pain in face. Cardiovascular: Parent/caregiver reports patient has had chest pain. 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 - Social history:: Smoking status: Patient/guardian denies using tobacco, Patient uses alcohol, occasionally. IV drugs, cocaine. - Ebola Screening: : Patient denies travel to an Ebola-affected area in the 21 days before illness onset. Screenin:55 Abuse screen: Denies threats or abuse. Denies injuries from another. Nutritional ls4 screening: No deficits noted. Tuberculosis screening: No symptoms or risk factors identified. Fall Risk None identified. Assessment: 14:49 Pain: Complains of pain in face Pain does not radiate. Pain currently is 8 out of 10 on ls4 a pain scale. Pain began suddenly, Is intermittent, episodic, chronic. Neuro: Level of Consciousness is awake, alert, obeys commands, Oriented to person, place, time, situation, Brew House Supervisor are equal bilaterally Moves all extremities. Gait is steady, Speech is normal, Facial symmetry appears normal, Pupils are PERRLA. Cardiovascular: Denies chest pain. Respiratory: Airway is patent Respiratory effort is even, unlabored, Respiratory pattern is regular. GI: No deficits noted. : No deficits noted. Musculoskeletal: No deficits noted. Vital Signs: 13:38 BP 111 / 81; Pulse 106; Resp 17; Temp 97.9(TE); Pulse Ox 99% on R/A; Weight 56.7 kg; tw2 Height 5 ft. 1 in. (154.94 cm); Pain 8/10; 13:38 Body Mass Index 23.62 (56.70 kg, 154.94 cm) tw2 ED Course: 13:08 Patient arrived in ED. mr 13:24 EKG done, by semiconductor development technician. reviewed by Vernon Vazquez MD. tw2 13:25 EKG done, by semiconductor development technician. reviewed by Vernon Vazquez MD. at1 13:38 Triage completed. tw2 13:38 Arm band placed on. tw2 13:45 Roxie Godinez, ROSARIO is Primary Nurse. ls4 13:51 Adam Pickering PA is PHCP. jr8 13:51 Vernon Vazquez MD is Attending Physician. jr8 13:55 No provider procedures requiring assistance completed. Patient maintains SpO2 ls4 saturation greater than 95% on room air. 13:55 Patient has correct armband on for positive identification. Bed in low position. Call ls4 light in reach. Side rails up X 1. line patrolman on. Pulse ox on. NIBP on. 14:45 XRAY Chest (1 view) In Process Unspecified. EDMS 14:45 X-ray completed. Portable x-ray completed in exam room. Patient tolerated procedure sw well. 15:[address] via wheelchair. 15:24 CT completed. Patient tolerated procedure well. Patient moved back from CT. mahad 15:25 CT Head Brain wo Cont In Process Unspecified. EDMS Administered Medications: No medications were administered Outcome: 16:36 Discharge ordered by . marlin 17:23 Patient left the ED. ls4 Signatures: Dispatcher [employer] EDMS Vin Janie Streeter, Adam Washington, JEFF AGUILAR jr8 Esthela Bai, ems helicopter pilot EKG Tat1 Maria De Jesus Pina Tara, RN RN tw2 Addy Chatman Lisa, RN RN ls4
[2018-10-13 17:33] VITALS: BP 111/81; TEMP 97.9; O2SAT 99
== END 2018-10-13 17:23 | disposition home or self-care (01) ==
LOC: ER 13:06
DX: R07.9 Chest pain, unspecified (principal); F41.9 Anxiety disorder, unspecified; F32.9 Major depressive disorder, single episode, unspecified; F43.10 Post-traumatic stress disorder, unspecified; Z88.0 Allergy status to penicillin; Z88.1 Allergy status to other antibiotic agents; Z88.5 Allergy status to narcotic agent; Z88.6 Allergy status to analgesic agent; Z88.8 Allergy status to other drugs, medicaments and biological substances
CPT/HCPCS: 36415; 70450; 71045; 80048; 80076; 83690; 84484; 85025; 85610; 93005; 99285

== ENCOUNTER 2018-10-17 12:30 | Emergency (ER) | payer SELFPAY ==
[2018-10-17 13:08] LABS: Absolute Lymphocytes (CBC) 1.2 K/uL (0.7-4.9); Absolute Monocytes 0.8 K/uL (0.1-1.3); Absolute Neutrophil 3.7 K/uL (1.8-8.0); Basophils % 1.1 % (0-1.3); Eosinophils % 0.8 % (0-4.4); Hematocrit 34.2 % (36.0-45.0); Lymphocytes % 20.5 % (15.3-44.8); MPV 9.3 fL (7.6-11.3); Monocytes % 13.8 % (3.3-12.3); RBC Red Blood Cell Count 3.75 M/uL (3.86-4.86)
[2018-10-17 13:12] LABS: Protime INR 1.16
[2018-10-17] MEDS ORDERED: levETIRAcetam 1,000 MG in NA CHLORIDE 0.9% 100 ML IV ONE (13:15)
[2018-10-17 13:26] LABS: ALT/SGPT 20 U/L (12-78); AST/SGOT 13 U/L (15-37); Albumin 3.8 g/dL (3.4-5.0); Alkaline Phosphatase 110 U/L (45-117); BUN Blood Urea Nitrogen 14 mg/dL (7-18); Bicarbonate 27 mmol/L (21-32); Bilirubin Direct < 0.1 mg/dL (0-0.2); Bilirubin Total 0.3 mg/dL (0.2-1.0); Glucose Level 105 mg/dL (74-106); Potassium 3.2 mmol/L (3.5-5.1); Protein, Total 7.1 g/dL (6.4-8.2); Sodium Level 144 mmol/L (136-145)
[2018-10-17] MEDS ORDERED: NA CHLORIDE 0.9% 1,000 ML ONE (13:29)
--- NOTE | 2018-10-17 13:46 | ER ---
Nurse's Notes [facility] Name: Aracelis Rios Age: 43 yrs Sex: Female : 1975 Arrival Date: 10/17/2018 Time: 12:37 Bed 7 Private MD: Diagnosis: Epileptic seizures related to external causes;Abuse of non-psychoactive substances;Cocaine abuse;Insomnia;Hypokalemia;Adverse effect of amphetamines;Urinary tract infection, site not specified Presentation: 10/17 12:39 Presenting complaint: EMS states: Patient had a seizure that according to bystanders aj1 lasted "off and on for 5 minutes" Patient was not post-ictal on EMS arrival. Patient reports that she was seen her last Thursday for a seizure, and she has a follow up appointment with her neurologist this week. Patient reports neck pain that she states has been there since her last seizure and pain to the right ankle. Patient is alert and oriented x4 at this time. Transition of care: patient was not received from another setting of care. Onset of symptoms was October 17, 2018. Risk Assessment: Do you want to hurt yourself or someone else? Patient reports no desire to harm self or others. Initial Sepsis Screen: Does the patient meet any 2 criteria? No. Patient's initial sepsis screen is negative. Does the patient have a suspected source of infection? No. Patient's initial sepsis screen is negative. Care prior to arrival: None. 12:39 Method Of Arrival: EMS: [facility] aj1 12:39 Acuity: PRASANNA 3 aj1 Triage Assessment: 12:43 General: Appears in no apparent distress. comfortable, Behavior is calm, cooperative, aj1 appropriate for age. Pain: Complains of pain in right ankle and neck Pain does not radiate. Pain currently is 6 out of 10 on a pain scale. 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 - Social history:: Smoking status: Patient/guardian denies using tobacco. - Ebola Screening: : Patient denies travel to an Ebola-affected area in the 21 days before illness onset. - Family history:: not pertinent. Screenin:45 Abuse screen: Denies threats or abuse. Denies injuries from another. Nutritional aj1 screening: No deficits noted. Tuberculosis screening: No symptoms or risk factors identified. 15:38 Fall Risk None identified. aj1 Assessment: 12:45 General: Appears in no apparent distress. comfortable, Behavior is calm, cooperative, aj1 appropriate for age. Pain: Complains of pain in neck and right ankle Pain does not radiate. Pain currently is 6 out of 10 on a pain scale. Quality of pain is described as aching. Neuro: Level of Consciousness is awake, alert, obeys commands, Oriented to person, place, time, situation, Learning And Development Officer are equal bilaterally Moves all extremities. Full function Speech is normal, Facial symmetry appears normal, Seizure activity reported prior to arrival. Seizure lasted approximately 5 minutes. Cardiovascular: Patient's skin is warm and dry. Rhythm is sinus rhythm. Respiratory: Airway is patent Respiratory effort is even, unlabored, Respiratory pattern is regular, symmetrical. GI: No signs and/or symptoms were reported involving the gastrointestinal system. : No signs and/or symptoms were reported regarding the genitourinary system. EENT: No signs and/or symptoms were reported regarding the EENT system. Derm: No signs and/or symptoms reported regarding the dermatologic system. Skin is pink, warm \\T\\ dry. normal. Musculoskeletal: Range of motion: intact in all extremities. 13:45 Reassessment: Patient appears in no apparent distress at this time. No changes from aj1 previously documented assessment. Patient and/or family updated on plan of care and expected duration. Pain level reassessed. Patient is alert, oriented x 3, equal unlabored respirations, skin warm/dry/pink. 14:02 Reassessment: Patient discharge pending UA and UDS results. aj1 14:45 Reassessment: Patient appears in no apparent distress at this time. No changes from aj1 previously documented assessment. Patient and/or family updated on plan of care and expected duration. Pain level reassessed. Patient is alert, oriented x 3, equal unlabored respirations, skin warm/dry/pink. 15:38 Reassessment: Patient appears in no apparent distress at this time. No changes from aj1 previously documented assessment. Patient and/or family updated on plan of care and expected duration. Pain level reassessed. Patient is alert, oriented x 3, equal unlabored respirations, skin warm/dry/pink. 15:40 Reassessment: Patient appears in no apparent distress at this time. Patient and/or ch family updated on plan of care and expected duration. Pain level reassessed. Patient is alert, oriented x 3, equal unlabored respirations, skin warm/dry/pink. Patient states feeling better. Patient states symptoms have improved. Vital Signs: 12:43 BP 110 / 73; Pulse 101; Resp 20; Temp 98.0; Pulse Ox 100% on R/A; Pain 6/10; aj1 13:45 BP 119 / 84; Pulse 88; Resp 13; Pulse Ox 100% on R/A; aj1 15:40 BP 124 / 76; Pulse 79; Resp 16; Temp 98.8; Pulse Ox 99% on R/A; Pain 3/10; ch ED Course: 12:37 Patient arrived in ED. leisa 12:37 Geraldo Vaz MD is Attending Physician. leisa 12:39 Yomaira Downey, RN is Primary Nurse. aj1 12:41 Triage completed. aj1 12:43 Arm band placed on. aj1 12:45 Patient has correct armband on for positive identification. Bed in low position. Call aj1 light in reach. Side rails up X 1. front desk monitor on. Pulse ox on. NIBP on. 12:45 No provider procedures requiring assistance completed. aj1 12:45 EKG done, by ED staff, reviewed by Geraldo Vaz MD. dh3 12:58 Initial lab(s) drawn, by co, sent to lab. dh3 13:45 Dereck Dsouza MD is Referral Physician. leisa 14:18 Urine collected: clean catch specimen, molly colored. dh3 15:41 IV discontinued, intact, bleeding controlled, No redness/swelling at site. Pressure ch dressing applied. Administered Medications: 13:33 Drug: NS 0.9% 1000 ml Route: IV; Rate: 1 bolus; Site: right antecubital; [facility] 15:32 Follow up: IV Status: Completed infusion; IV Intake: 1000ml 13:33 Drug: Keppra 1000 mg Route: IV; Rate: per protocol; Site: right antecubital; 1 15:32 Follow up: IV Status: Completed infusion; IV Intake: 100ml 14:02 Drug: Potassium Chloride 40 mEq Route: PO; [facility] 15:32 Follow up: Response: No adverse reaction; Marked relief of symptoms 15:32 Drug: Bactrim (160 mg-800 mg (DS) 1 tablet Route: PO; ch Intake: 15:32 IV: 1000ml; Total: 1000ml. 15:32 IV: 100ml; Total: 1100ml. Outcome: 13:45 Discharge ordered by . [facility] 15:41 Discharged to home ambulatory, with family. 15:41 Condition: stable 15:41 Discharge instructions given to patient, family, Instructed on discharge instructions, follow up and referral plans. medication usage, Demonstrated understanding of instructions, follow-up care, medications, Prescriptions given X 3. 15:42 Patient left the ED. Signatures: Linda Connolly, Yomaira Zarate RN, ch, RN RN Geraldo Howard MD MD cha Herrera, Deanna [facility]
--- NOTE | 2018-10-17 13:47 | EDPHYS ---
Physician Documentation [facility] Name: Araceils Rios Age: 43 yrs Sex: Female : 1975 Arrival Date: 10/17/2018 Time: 12:37 Bed 7 Private MD: ED Physician Geraldo Vaz HPI: 10/17 13:05 This 43 yrs old Female presents to ER via EMS with complaints of seizure. leisa 13:05 The patient presents after having a single isolated seizure, that lasted an unknown leisa period of time. Character of seizure(s): Loss of consciousness: the patient experienced loss of consciousness, Motor activity: generalized, Incontinence: none, Apnea: the patient did not experience apnea, Circulation: the patient did not experience evidence of pulse disturbance. Seizure onset: just prior to arrival. Context: the seizure(s) was witnessed, by co-worker(s). Seizure Hx: Original onset: longstanding, Cause: head injury, Last seizure: The patient's last seizure was approximately 1 week(s) ago. Associated injury: Head/face:. 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 - Social history:: Smoking status: Patient/guardian denies using tobacco. - Ebola Screening: : Patient denies travel to an Ebola-affected area in the 21 days before illness onset. - Family history:: not pertinent. ROS: 13:05 Constitutional: Negative for fever, chills, and weight loss, Eyes: Negative for injury, leisa pain, redness, and discharge, ENT: Negative for injury, pain, and discharge, Neck: Negative for injury, pain, and swelling, Cardiovascular: Negative for chest pain, palpitations, and edema, Respiratory: Negative for shortness of breath, cough, wheezing, and pleuritic chest pain, Abdomen/GI: Negative for abdominal pain, nausea, vomiting, diarrhea, and constipation, Back: Negative for injury and pain, : Negative for injury, bleeding, discharge, and swelling, MS/Extremity: Negative for injury and deformity, Skin: Negative for injury, rash, and discoloration, Psych: Negative for depression, anxiety, suicide ideation, homicidal ideation, and hallucinations, Allergy/Immunology: Negative for hives, rash, and allergies, Endocrine: Negative for neck swelling, polydipsia, polyuria, polyphagia, and marked weight changes, Hematologic/Lymphatic: Negative for swollen nodes, abnormal bleeding, and unusual bruising. 13:05 Neuro: Positive for seizure activity. Exam: 13:05 Constitutional: This is a well developed, well nourished patient who is awake, alert, leisa and in no acute distress. Head/Face: Normocephalic, atraumatic. Eyes: Pupils equal round and reactive to light, extra-ocular motions intact. Lids and lashes normal. Conjunctiva and sclera are non-icteric and not injected. Cornea within normal limits. Periorbital areas with no swelling, redness, or edema. ENT: Nares patent. No nasal discharge, no septal abnormalities noted. Tympanic membranes are normal and external auditory canals are clear. Oropharynx with no redness, swelling, or masses, exudates, or evidence of obstruction, uvula midline. Mucous membranes moist. Neck: Trachea midline, no thyromegaly or masses palpated, and no cervical lymphadenopathy. Supple, full range of motion without nuchal rigidity, or vertebral point tenderness. No Meningismus. Chest/axilla: Normal chest wall appearance and motion. Nontender with no deformity. No lesions are appreciated. Cardiovascular: Regular rate and rhythm with a normal S1 and S2. No gallops, murmurs, or rubs. Normal PMI, no JVD. No pulse deficits. Respiratory: Lungs have equal breath sounds bilaterally, clear to auscultation and percussion. No rales, rhonchi or wheezes noted. No increased work of breathing, no retractions or nasal flaring. Abdomen/GI: Soft, non-tender, with normal bowel sounds. No distension or tympany. No guarding or rebound. No evidence of tenderness throughout. Back: No spinal tenderness. No costovertebral tenderness. Full range of motion. Female : Normal external genitalia. Skin: Warm, dry with normal turgor. Normal color with no rashes, no lesions, and no evidence of cellulitis. MS/ Extremity: Pulses equal, no cyanosis. Neurovascular intact. Full, normal range of motion. Neuro: Awake and alert, GCS 15, oriented to person, place, time, and situation. Cranial nerves II-XII grossly intact. Motor strength 5/5 in all extremities. Sensory grossly intact. Cerebellar exam normal. Normal gait. Psych: Awake, alert, with orientation to person, place and time. Behavior, mood, and affect are within normal limits. Vital Signs: 12:43 BP 110 / 73; Pulse 101; Resp 20; Temp 98.0; Pulse Ox 100% on R/A; Pain 6/10; aj1 13:45 BP 119 / 84; Pulse 88; Resp 13; Pulse Ox 100% on R/A; aj1 15:40 BP 124 / 76; Pulse 79; Resp 16; Temp 98.8; Pulse Ox 99% on R/A; Pain 3/10; ch MDM: 12:37 Patient medically screened. [facility] 13:09 Data reviewed: vital signs, nurses notes, lab test result(s), EKG. 10/17 12:43 Order name: Acetaminophen; Complete Time: 13:44 10/17 12:43 Order name: Basic Metabolic Panel; Complete Time: 13:44 10/17 12:43 Order name: CBC with Diff; Complete Time: 13:44 10/17 12:43 Order name: ETOH Level; Complete Time: 13:44 10/17 12:43 Order name: Hepatic Function; Complete Time: 13:44 10/17 12:43 Order name: PT-INR; Complete Time: 13:44 10/17 12:43 Order name: Ptt, Activated; Complete Time: 13:44 10/17 12:43 Order name: Salicylate; Complete Time: 13:44 10/17 12:43 Order name: Urine Drug Screen; Complete Time: 15:22 10/17 14:24 Order name: Urine Dipstick--Ancillary (enter results) ms 10/17 14:24 Order name: Urine --Ancillary (enter results) ms 10/17 12:43 Order name: EKG; Complete Time: 12:44 [facility] 10/17 12:43 Order name: EKG - Nurse/Tech; Complete Time: 12:51 [facility] 10/17 12:43 Order name: IV Saline Lock; Complete Time: 12:51 [facility] 10/17 12:43 Order name: Labs collected and sent; Complete Time: 12:51 [facility] 10/17 12:43 Order name: Urine Dipstick-Ancillary (obtain specimen); Complete Time: 14:18 [facility] 10/17 12:43 Order name: Urine Test (obtain specimen); Complete Time: 14:18 [facility] 10/17 12:43 Order name: Seizure Precautions; Complete Time: 12:51 [facility] Administered Medications: 13:33 Drug: NS 0.9% 1000 ml Route: IV; Rate: 1 bolus; Site: right antecubital; [facility] 15:32 Follow up: IV Status: Completed infusion; IV Intake: 1000ml 13:33 Drug: Keppra 1000 mg Route: IV; Rate: per protocol; Site: right antecubital; [facility] 15:32 Follow up: IV Status: Completed infusion; IV Intake: 100ml 14:02 Drug: Potassium Chloride 40 mEq Route: PO; [facility] 15:32 Follow up: Response: No adverse reaction; Marked relief of symptoms 15:32 Drug: Bactrim (160 mg-800 mg (DS) 1 tablet Route: PO; Disposition: 10/17/18 13:45 Discharged to Home. Impression: Epileptic seizures related to external causes, Abuse of non-psychoactive substances, Cocaine abuse, Insomnia, Hypokalemia, Adverse effect of amphetamines, Urinary tract infection, site not specified. - Condition is Stable. - Discharge Instructions: Stimulant Use Disorder-Cocaine, Substance Use Disorder, Seizure, Adult, Urinary Tract Infection, Adult, Urinary Tract Infection, Adult, [id number], Stimulant Use Disorder-Methamphetamines, Seizure, Adult, [id number], Hypokalemia. - Prescriptions for Keppra 500 mg Oral Tablet - take 1 tablet by ORAL route every 12 hours; 20 tablet. Restoril 7.5 mg Oral Capsule - take 2 capsule by ORAL route At bedtime As needed; 14 capsule. Bactrim DS 800- 160 mg Oral Tablet - take 1 tablet by ORAL route every 12 hours for 7 days; 14 tablet. - Medication Reconciliation Form, Thank You Letter, Antibiotic Education, Prescription Opioid Use, Work release form form. - Follow up: Private Physician; When: 2 - 3 days; Reason: Recheck today's complaints, Continuance of care, Re-evaluation by your physician. Follow up: Dereck Dsouza; When: 2 - 3 days; Reason: Recheck today's complaints, Re-evaluation by your physician. - Problem is new. - Symptoms have improved. Signatures: Dispatcher [employer] EDMS Linda Connolly RN RN Yomaira Downey RN RN aj1 Geraldo Vaz MD MD [facility] Corrections: (The following items were deleted from the chart) 15:23 13:45 10/17/2018 13:45 Discharged to Home. Impression: Epileptic seizures related to [facility] external causes; Abuse of non-psychoactive substances; Cocaine abuse; Insomnia; Hypokalemia. Condition is Stable. Discharge Instructions: Stimulant Use Disorder-Cocaine, Substance Use Disorder, Seizure, Adult, Seizure, Adult, [id number]. Prescriptions for Keppra 500 mg Oral Tablet - take 1 tablet by ORAL route every 12 hours; 20 tablet, Restoril 7.5 mg Oral Capsule - take 2 capsule by ORAL route At bedtime As needed; 14 capsule. and Forms are Medication Reconciliation Form, Thank You Letter, Antibiotic Education, Prescription Opioid Use. Follow up: Private Physician; When: 2 - 3 days; Reason: Recheck today's complaints, Continuance of care, Re-evaluation by your physician. Follow up: Dereck Dsouza; When: 2 - 3 days; Reason: Recheck today's complaints, Re-evaluation by your physician. Problem is new. Symptoms have improved. [facility] 15:42 15:23 10/17/2018 13:45 Discharged to Home. Impression: Epileptic seizures related to external causes; Abuse of non-psychoactive substances; Cocaine abuse; Insomnia; Hypokalemia; Adverse effect of amphetamines; Urinary tract infection, site not specified. Condition is Stable. Discharge Instructions: Stimulant Use Disorder-Cocaine, Substance Use Disorder, Seizure, Adult, Seizure, Adult, [id number], Hypokalemia. Prescriptions for Keppra 500 mg Oral Tablet - take 1 tablet by ORAL route every 12 hours; 20 tablet, Restoril 7.5 mg Oral Capsule - take 2 capsule by ORAL route At bedtime As needed; 14 capsule. and Forms are Medication Reconciliation Form, Thank You Letter, Antibiotic Education, Prescription Opioid Use. Follow up: Private Physician; When: 2 - 3 days; Reason: Recheck today's complaints, Continuance of care, Re-evaluation by your physician. Follow up: Dereck Dsouza; When: 2 - 3 days; Reason: Recheck today's complaints, Re-evaluation by your physician. Problem is new. Symptoms have improved. leisa
[2018-10-17] MEDS ORDERED: POTASSIUM CL SA 10 MEQ TAB PO ONE (14:08)
[2018-10-17 14:52] LABS: Barbiturates NEGATIVE (NEGATIVE); Benzodiazepines POSITIVE (NEGATIVE); Cocaine POSITIVE (NEGATIVE); METHAMPHETAM POSITIVE (NEGATIVE); Methadone NEGATIVE (NEGATIVE); Opiates NEGATIVE (NEGATIVE); Phencyclidine NEGATIVE (NEGATIVE); THC Cannibis NEGATIVE (NEGATIVE)
[2018-10-17] MEDS ORDERED: SMZ./TMP. 800/160 MG TABLET ONE (15:45)
[2018-10-17 15:54] VITALS: BP 124/76; TEMP 98.8; O2SAT 99
[2018-10-17 20:08] LABS: Urine Blood NEGATIVE (NEG); Urine Glucose NEGATIVE (NEG); Urine Protein NEGATIVE (NEG); Urine pH 6.5 (5.0-7.0)
--- NOTE | 2018-10-18 08:39 | EKG ---
Test Date: 2018-10-17 Test Time: 11:46:37 [employer]andy Mixer: SOUTH MEASUREMENT RESULTS: Intervals: Rate: 84 RI: 122 QRSD: 70 QT: 372 QTc: 439 [place]: P: 17 RI: 122 QRS: 75 T: 60 INTERPRETIVE STATEMENTS: Normal sinus rhythm Normal ECG Compared to ECG 10/13/2018 13:20:27 Sinus tachycardia no longer present Electronically Signed On 10-18-18 08:38:11 CDT by Valdez Alvarado
== END 2018-10-17 15:42 | disposition home or self-care (01) ==
LOC: ER 12:30
DX: G40.509 Epileptic seizures related to external causes, not intractable, without status epilepticus (principal); F14.10 Cocaine abuse, uncomplicated; G47.00 Insomnia, unspecified; N39.0 Urinary tract infection, site not specified; E87.6 Hypokalemia; F55.8 Abuse of other non-psychoactive substances; T43.625A Adverse effect of amphetamines, initial encounter; F41.9 Anxiety disorder, unspecified; F32.9 Major depressive disorder, single episode, unspecified; F43.10 Post-traumatic stress disorder, unspecified; Z88.0 Allergy status to penicillin; Z88.1 Allergy status to other antibiotic agents; Z88.5 Allergy status to narcotic agent; Z88.6 Allergy status to analgesic agent; Z88.8 Allergy status to other drugs, medicaments and biological substances
CPT/HCPCS: 36415; 80048; 80076; 80307; 80320; 80329; 81003; 81025; 85025; 85610; 85730; 93005; 96365; 96366; 99284; J1953; J7030

== ENCOUNTER 2018-10-30 15:26 | Emergency (ER) | payer SELFPAY ==
[2018-10-30 16:15] LABS: Absolute Lymphocytes (CBC) 1.5 K/uL (0.7-4.9); Absolute Monocytes 0.7 K/uL (0.1-1.3); Absolute Neutrophil 5.4 K/uL (1.8-8.0); Eosinophils % 1.2 % (0-4.4); Hematocrit 37.1 % (36.0-45.0); Lymphocytes % 19.3 % (15.3-44.8); MPV 9.8 fL (7.6-11.3); RBC Red Blood Cell Count 3.97 M/uL (3.86-4.86)
[2018-10-30 16:30] LABS: ALT/SGPT 30 U/L (12-78); AST/SGOT 23 U/L (15-37); Albumin 4.1 g/dL (3.4-5.0); Alkaline Phosphatase 128 U/L (45-117); BUN Blood Urea Nitrogen 13 mg/dL (7-18); Bicarbonate 29 mmol/L (21-32); Bilirubin Direct < 0.1 mg/dL (0-0.2); Bilirubin Total 0.2 mg/dL (0.2-1.0); Glucose Level 80 mg/dL (74-106); Magnesium 2.5 mg/dL (1.8-2.4); Potassium 3.9 mmol/L (3.5-5.1); Protein, Total 7.6 g/dL (6.4-8.2); Sodium Level 144 mmol/L (136-145)
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
--- NOTE | 2018-10-30 17:05 | EDPHYS ---
Physician Documentation [facility] [place] Name: Aracelis Rios Age: 43 yrs Sex: Female : 1975 Arrival Date: 10/30/2018 Time: 15:31 Bed 2 Private MD: ED Physician Karel Wallace HPI: 10/30 16:12 This 43 yrs old Female presents to ER via EMS with complaints of Seizure. jr8 16:12 The patient presents with a history of multiple seizures, a total of 2. Character of jr8 seizure(s): Loss of consciousness: the patient experienced loss of consciousness, Motor activity: generalized, Incontinence: none, Apnea: the patient did not experience apnea, Circulation: the patient did not experience evidence of pulse disturbance, Eye movements: are unknown. Seizure onset: just prior to arrival. Context: the seizure(s) was witnessed, by family, occurred at home, occurred while the patient was at rest, Contributing factors: missed recent doses of medications, sleep deprivation. Seizure Hx: Original onset: longstanding, Cause: unknown, Last seizure: The patient's last seizure was approximately 1 week(s) ago, Seizure medications: Keppra. Associated injury: Head/face: abrasion. Current symptoms: Currently, the patient is not experiencing any symptoms, the patient feels back to baseline, no decreased level of consciousness, no confusion, no dysphasia, no headache, no paralysis, no visual changes. The patient has experienced similar episodes in the past, several times. It is unknown whether or not the patient has recently seen a physician. WIDE LOAD ESCORT: 16:00 Unknown ca1 Historical: - Allergies: 15:35 Amoxicillin; ph 15:35 Demerol; ph 15:35 Ibuprofen; ph 15:35 ketorolac tromethamine; ph 15:35 Ondansetron HCl; ph 15:35 PENICILLINS; ph - Home Meds: 15:35 Ambien 10 mg Oral tab 1 tab once daily [Active]; mirtazapine 15 mg Oral tab 1 tab once ph daily [Active]; Xanax 1 mg Oral tab twice a day [Active]; - PMHx: 15:35 Anxiety; Depression; PTSD; Seizures; ph - Immunization history:: Adult Immunizations unknown. - Social history:: Smoking status: Patient uses tobacco products, smokes one-half pack cigarettes per day. - Ebola Screening: : No symptoms or risks identified at this time. ROS: 16:12 Eyes: Negative for injury, pain, redness, and discharge, ENT: Negative for injury, jr8 pain, and discharge, Neck: Negative for injury, pain, and swelling, Cardiovascular: Negative for chest pain, palpitations, and edema, Respiratory: Negative for shortness of breath, cough, wheezing, and pleuritic chest pain, Abdomen/GI: Negative for abdominal pain, nausea, vomiting, diarrhea, and constipation, Back: Negative for injury and pain, MS/Extremity: Negative for injury and deformity. 16:12 Skin: Positive for abrasion(s), of the face. 16:12 Neuro: Positive for seizure activity. Exam: 16:12 Eyes: Pupils equal round and reactive to light, extra-ocular motions intact. Lids and jr8 lashes normal. Conjunctiva and sclera are non-icteric and not injected. Cornea within normal limits. Periorbital areas with no swelling, redness, or edema. ENT: Nares patent. No nasal discharge, no septal abnormalities noted. Tympanic membranes are normal and external auditory canals are clear. Oropharynx with no redness, swelling, or masses, exudates, or evidence of obstruction, uvula midline. Mucous membranes moist. Neck: Trachea midline, no thyromegaly or masses palpated, and no cervical lymphadenopathy. Supple, full range of motion without nuchal rigidity, or vertebral point tenderness. No Meningismus. Chest/axilla: Normal chest wall appearance and motion. Nontender with no deformity. No lesions are appreciated. Cardiovascular: Regular rate and rhythm with a normal S1 and S2. No gallops, murmurs, or rubs. Normal PMI, no JVD. No pulse deficits. Respiratory: Lungs have equal breath sounds bilaterally, clear to auscultation and percussion. No rales, rhonchi or wheezes noted. No increased work of breathing, no retractions or nasal flaring. Abdomen/GI: Soft, non-tender, with normal bowel sounds. No distension or tympany. No guarding or rebound. No evidence of tenderness throughout. Back: No spinal tenderness. No costovertebral tenderness. Full range of motion. Skin: Warm, dry with normal turgor. Normal color with no rashes, no lesions, and no evidence of cellulitis. MS/ Extremity: Pulses equal, no cyanosis. Neurovascular intact. Full, normal range of motion. Neuro: Awake and alert, GCS 15, oriented to person, place, time, and situation. Cranial nerves II-XII grossly intact. Motor strength 5/5 in all extremities. Sensory grossly intact. Cerebellar exam normal. Normal gait. 16:12 Head/face: Noted is a laceration(s), that is superficial, that is linear, 2.5 cm(s), of the right cheek. Vital Signs: 15:33 BP 126 / 85; Pulse 91; Resp 18; Temp 98.0; Pulse Ox 99% on R/A; ph 16:00 BP 115 / 91; Pulse 89; Resp 19; Pulse Ox 100% on R/A; ca1 16:30 BP 100 / 74; Pulse 83; Resp 19; Pulse Ox 100% on R/A; ca1 17:00 BP 100 / 72; Pulse 81; Resp 19; Pulse Ox 100% on R/A; ca1 17:30 BP 102 / 65; Pulse 75; Resp 19; Pulse Ox 100% on R/A; ca1 18:00 BP 100 / 72; Pulse 81; Resp 19; Pulse Ox 99% on R/A; ca1 [place] Coma Score: 15:38 Eye Response: spontaneous(4). Verbal Response: oriented(5). Motor Response: obeys ph commands(6). Total: 15. Laceration: 18:02 Wound Repair of 2.5cm ( 1.0in ) partial thickness laceration to right cheek. Distal jr8 neuro/vascular/tendon intact. Wound prep: Extensive cleansing with hibiclenz, Wound irrigation with saline by nurse, Wound explored extensively. Skin closed with 1 thin layer Adhesive skin closure using Dermabond. MDM: 15:34 Patient medically screened. jr8 17:02 Data reviewed: vital signs, nurses notes, lab test result(s), and as a result, I will jr8 discharge patient. Data interpreted: Pulse oximetry: on room air is 100 %. Interpretation: normal. Counseling: I had a detailed discussion with the patient and/or guardian regarding: the historical points, exam findings, and any diagnostic results supporting the discharge/admit diagnosis, lab results, the need for outpatient follow up, a neurologist, to return to the emergency department if symptoms worsen or persist or if there are any questions or concerns that arise at home. ED course: Patient remains stable and without seizure while in ED. Will send home to f/u with neurologist . 10/30 15:34 Order name: CBC with Diff; Complete Time: 16:22 jr8 10/30 15:34 Order name: Basic Metabolic Panel; Complete Time: 16:32 jr8 10/30 15:34 Order name: IV; Complete Time: 15:58 jr8 10/30 15:34 Order name: LFT's; Complete Time: 16:32 jr8 10/30 15:34 Order name: Magnesium; Complete Time: 16:32 8 Administered Medications: No medications were administered Disposition: 10/30/18 17:03 Discharged to Home. Impression: Seizures. - Condition is Stable. - Discharge Instructions: Seizure, Adult. - Medication Reconciliation Form, Thank You Letter, Antibiotic Education, Prescription Opioid Use, Work release form form. - Follow up: Private Physician; When: 2 - 3 days; Reason: Recheck today's complaints, Continuance of care, Re-evaluation by your physician. - Problem is new. - Symptoms have improved. Addendum: 11/03/2018 21:49 Co-signature as Attending Physician, Karel Wallace MD. g s Signatures: Dispatcher [employer] EDMS Adam Pickering PA PA jr8 Zeny Moura RN RN Karel Wallace MD MD [facility] RN RN ca1 Corrections: (The following items were deleted from the chart) 10/30 18:03 16:12 Head/face: Noted is abrasion(s), that are mild, of the right cheek, jr8 jr8 18:10 17:03 10/30/2018 17:03 Discharged to Home. Impression: Seizures. Condition is Stable. ca1 Forms are Medication Reconciliation Form, Thank You Letter, Antibiotic Education, Prescription Opioid Use. Follow up: Private Physician; When: 2 - 3 days; Reason: Recheck today's complaints, Continuance of care, Re-evaluation by your physician. Problem is new. Symptoms have improved. jr8
[2018-10-30] MEDS ORDERED: DERMABOND SKIN ADHESIVE TOP ONE (18:06)
[2018-10-30 18:27] VITALS: TEMP 98
[2018-10-30 18:33] VITALS: BP 100/72; O2SAT 99
== END 2018-10-30 18:10 | disposition home or self-care (01) ==
LOC: ER 15:26
PROC: 0JQ10ZZ Repair Face Subcutaneous Tissue and Fascia, Open Approach (ICD-10-PCS; principal; 2018-10-30)
DX: G40.909 Epilepsy, unspecified, not intractable, without status epilepticus (principal); S01.411A Laceration without foreign body of right cheek and temporomandibular area, initial encounter; F41.9 Anxiety disorder, unspecified; F32.9 Major depressive disorder, single episode, unspecified; F43.10 Post-traumatic stress disorder, unspecified; F17.210 Nicotine dependence, cigarettes, uncomplicated; Z88.0 Allergy status to penicillin; Z88.1 Allergy status to other antibiotic agents; Z88.5 Allergy status to narcotic agent; Z88.8 Allergy status to other drugs, medicaments and biological substances
CPT/HCPCS: 36415; 80048; 80076; 83735; 85025; 99284

== ENCOUNTER 2018-11-13 04:11 | Emergency (ER) | payer SELFPAY ==
[2018-11-13] MEDS ORDERED: LORazepam 2 MG/ML VIAL ONE (04:31)
[2018-11-13] MEDS ORDERED: PROMETHAZINE 25 MG/ML VIAL ONE (04:56)
[2018-11-13] MEDS ORDERED: LEVETIRACETAM 500 MG/5 ML VIAL IV ONE (04:56)
[2018-11-13] MEDS ORDERED: NA CHLORIDE 0.9% 1,000 ML ONE (04:57)
[2018-11-13] MEDS ORDERED: NA CHLORIDE 0.9% 100 ML IV ONE (04:57)
[2018-11-13 05:10] LABS: Absolute Lymphocytes (CBC) 2.1 K/uL (0.7-4.9); Absolute Monocytes 0.7 K/uL (0.1-1.3); Absolute Neutrophil 5.4 K/uL (1.8-8.0); Lymphocytes % 24.9 % (15.3-44.8); MPV 9.4 fL (7.6-11.3); Monocytes % 8.5 % (3.3-12.3); RBC Red Blood Cell Count 3.87 M/uL (3.86-4.86)
[2018-11-13 05:15] LABS: Protime INR 0.96
[2018-11-13 05:19] LABS: Barbiturates NEGATIVE (NEGATIVE); Benzodiazepines POSITIVE (NEGATIVE); Cocaine NEGATIVE (NEGATIVE); METHAMPHETAM NEGATIVE (NEGATIVE); Methadone NEGATIVE (NEGATIVE); Opiates NEGATIVE (NEGATIVE); Phencyclidine NEGATIVE (NEGATIVE); THC Cannibis NEGATIVE (NEGATIVE)
[2018-11-13 05:35] LABS: ALT/SGPT 23 U/L (12-78); AST/SGOT 15 U/L (15-37); Alkaline Phosphatase 135 U/L (45-117); BUN Blood Urea Nitrogen 11 mg/dL (7-18); Bicarbonate 26 mmol/L (21-32); Bilirubin Direct < 0.1 mg/dL (0-0.2); Bilirubin Total 0.1 mg/dL (0.2-1.0); Glucose Level 96 mg/dL (74-106); Potassium 3.8 mmol/L (3.5-5.1); Protein, Total 7.8 g/dL (6.4-8.2); Sodium Level 146 mmol/L (136-145)
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
[2018-11-13 08:59] LABS: Urine Blood NEGATIVE (NEG); Urine Glucose NEGATIVE (NEG); Urine Protein NEGATIVE (NEG); Urine Specific Gravity 1.025 (1.005-1.030); Urine pH 5.5 (5.0-7.0)
--- NOTE | 2018-11-13 11:36 | RAD REPORT ---
EXAM DESCRIPTION: CT - Head Brain Wo Cont - 11/13/2018 6:14 am CLINICAL HISTORY: SEIZURE TECHNIQUE: Multiple axial CT images of the brain were performed followed by sagittal and coronal rec onstructed images. The CT study is performed according to ALARA (as low as reasonably achievable) or ALARA/IMAGE GENTLY, with automatic adjustment of mA and/or kV according to patient size. Performed on: 11/13/2018 at 4:39 AM Comparisons: 10/13/2018. FINDINGS: There is no evidence of mass, acute mass effect or midline shift. There are no acute extra -axial fluid collections. There is no evidence of acute intracranial hemorrhage. The cerebral sulci and ventricles are normal in size and configuration. There are no focal abnormal areas of increased or decreased attenuation. There is mild mucosal thickening of the left ethmoid air cells. The mastoid air cells are clear. The orbital contents are grossly unremarkable. No acute osseous abnormalities are identified. No focal soft tissue abnormalities are identified. IMPRESSION: 1. There is no evidence of acute intracranial pathology. 2. No significant change since the prior study. Electronically signed by: Jeanine Card DO 11/13/2018 5:19 AM CDT Due to temporary technical issues with the PACS/Fluency reporting system, reports are being signed by the in house radiologist as a courtesy to ensure prompt reporting. The interpreting radiologist is f ully responsible for the content of the report.
[2018-11-13 14:01] VITALS: TEMP 98.2
[2018-11-13 14:08] VITALS: O2SAT 99
[2018-11-13 14:09] VITALS: BP 101/60
--- NOTE | 2018-11-16 11:29 | EKG ---
Test Date: 2018-11-13 Test Time: 04:51:40 Inside Trucker: JUSTINE MEASUREMENT RESULTS: Intervals: Rate: 97 TX: 124 QRSD: 68 QT: 342 QTc: 434 North: P: 55 TX: 124 QRS: 73 T: 70 INTERPRETIVE STATEMENTS: Normal sinus rhythm Normal ECG Compared to ECG 10/17/2018 11:46:37 No significant changes Electronically Signed On 11-13-18 16:43:33 CDT by Valdez Alvarado
== END 2018-11-13 13:49 | disposition home or self-care (01) ==
LOC: ER 04:11
DX: G40.802 Other epilepsy, not intractable, without status epilepticus (principal); F10.10 Alcohol abuse, uncomplicated; Z04.71 Encounter for examination and observation following alleged adult physical abuse; F41.9 Anxiety disorder, unspecified; F32.9 Major depressive disorder, single episode, unspecified; F43.10 Post-traumatic stress disorder, unspecified; Z88.0 Allergy status to penicillin; Z88.1 Allergy status to other antibiotic agents; Z88.5 Allergy status to narcotic agent; Z88.6 Allergy status to analgesic agent; Z88.8 Allergy status to other drugs, medicaments and biological substances
CPT/HCPCS: 36415; 70450; 80048; 80076; 80307; 80320; 80329; 81003; 81025; 85025; 85610; 85730; 93005; 96361; 96374; 96375; 99284; J1953; J2550; J7030

== ENCOUNTER 2019-02-06 22:17 | Emergency (ER) | payer SELFPAY ==
--- OUTSIDE RECORDS SUMMARY | 2019-02-06 22:30 | XMS REPORT ---
:1975 [facility] Address [address] [place] [address] [address] [place] [address] Care Team Providers Name Role Phone Unavailable Unavailable Unavailable Problems This patient has no known problems. Allergies, Adverse Reactions, Alerts This patient has no known allergies or adverse reactions. Medications This patient has no known medications.
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
[2019-02-09 16:11] VITALS: BP 126/89; TEMP 97.9; O2SAT 99
== END 2019-02-07 01:10 | disposition home or self-care (01) ==
LOC: ER 22:17
DX: S20.20XA Contusion of thorax, unspecified, initial encounter (principal); W19.XXXA Unspecified fall, initial encounter; Y93.89 Activity, other specified; Y92.9 Unspecified place or not applicable; Z72.0 Tobacco use; Z88.0 Allergy status to penicillin; Z88.1 Allergy status to other antibiotic agents; Z88.5 Allergy status to narcotic agent; Z88.6 Allergy status to analgesic agent; Z88.8 Allergy status to other drugs, medicaments and biological substances; F41.9 Anxiety disorder, unspecified; F32.9 Major depressive disorder, single episode, unspecified; F43.10 Post-traumatic stress disorder, unspecified; G40.909 Epilepsy, unspecified, not intractable, without status epilepticus
CPT/HCPCS: 71046; 99283

== ENCOUNTER 2019-04-11 11:13 | Emergency (ER) | payer SELFPAY ==
--- OUTSIDE RECORDS SUMMARY | 2019-04-11 11:15 | XMS REPORT | Summary of Care ---
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 Primary Care Provider Reason for Visit Reason Comments DNKA Encounter Details Date Type Department Care Team Description 03/30/2019 Telephone [facility] [place] Skylar Sultana DNKA [address] [place] [address] [address] [facility] [phone] [facility] [place] [address] Allergies Active Allergy Reactions Severity Noted Date Comments Amoxicillin Rash 12/21/2018 Ketorolac Tromethamine Hives 12/21/2018 Ondansetron Hcl (Pf) Hives 12/21/2018 documented as of this encounter (statuses as of 03/31/2019) Medications Medication Sig Dispensed Refills Start Date End Date Status ALPRAZolam (XANAX) 1 mg Take 1 mg by 0 Active tablet mouth 3 (three) times daily. zolpidem (AMBIEN) 10 mg Take 10 mg by 0 Active tablet mouth at bedtime as needed for Insomnia. mirtazapine 15 mg tablet Take 7.5 mg by 0 Active mouth at bedtime. tinidazole 500 mg Take 4 tablets 4 tablet 0 12/23/2018 Active tabletIndications: by mouth daily Trichimoniasis with breakfast. documented as of this encounter (statuses as of 03/31/2019) Active Problems Problem Noted Date Cervical high risk human papillomavirus (HPV) DNA test positive 12/23/2018 Overview: Normal cells with HPV+, patient will need Cotesting in 1 year (2019). Trichimoniasis 12/23/2018 Well woman exam 12/21/2018 H/O: hysterectomy 12/21/2018 Vaginal discharge 12/21/2018 Encounter for contraceptive management, unspecified type 12/21/2018 History of seizures 12/21/2018 History of depression 12/21/2018 History of anxiety 12/21/2018 documented as of this encounter (statuses as of 03/31/2019) Social History Tobacco Use Types Packs/Day Years Used Date Never Smoker Smokeless Tobacco: Never Used Alcohol Use Drinks/Week oz/Week Comments Yes social Sex Assigned at Date Recorded Not on file Job Start Date Occupation Industry Not on file Not on file Not on file Travel History Travel Start Travel End No recent travel history available. documented as of this encounter Last Filed Vital Signs Not on filedocumented in this encounter Plan of Treatment Date Type Specialty Care Team Description 04/06/2019 Office Visit [facility] , [facility] Room 04/06/2019 Initial Visit [facility] Elva Patel, SHREDDING MACHINE OPERATOR [address] [place] [address] [phone] Health Maintenance Due Date Last Done Comments DTaP,Tdap,and Td Vaccines (1 1996 - Tdap) MAMMOGRAM 2017 INFLUENZA VACCINE (#1) 2019 PAP SMEAR 01/18/2022 01/18/2019, 12/21/2018 PNEUMOCOCCAL 0-64 YEARS Aged Out No longer eligible based COMBINED SERIES on patient's age to complete this topic documented as of this encounter Results Not on filedocumented in this encounter Insurance Payer Benefit Plan Subscriber ID Effective Phone Address Type / Group Dates [facility] xxxxxxxxx 2018-Prese [phone] Medicaid WOMEN nt [address] [place] [address] [facility] xxxxxxxxx 2019-Prese [phone] Medicaid WOMEN WOMEN nt [id number] [place] [address] documented as of this encounter Advance Directives Name Relationship Healthcare Agent Communication Relationship Murali Hay Other Primary healthcare agent Ariel Rios Sibling Primary healthcare agent Mami Cabello Mother [facility] [phone] agent (Mobile)
--- OUTSIDE RECORDS SUMMARY | 2019-04-11 11:15 | XMS REPORT ---
:1975 Author [facility] Address [address] [place] [address] [address]. [address] [place] [address] Care Team Providers Name Role Phone Unavailable Unavailable Unavailable Problems This patient has no known problems. Allergies, Adverse Reactions, Alerts This patient has no known allergies or adverse reactions. Medications This patient has no known medications.
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
[2019-04-11 13:21] VITALS: TEMP 97.9; O2SAT 100
[2019-04-11 13:22] VITALS: BP 110/85
== END 2019-04-11 13:05 | disposition home or self-care (01) ==
LOC: ER 11:13
DX: R51 Headache (principal); F41.9 Anxiety disorder, unspecified; F32.9 Major depressive disorder, single episode, unspecified; G40.909 Epilepsy, unspecified, not intractable, without status epilepticus; F43.10 Post-traumatic stress disorder, unspecified; Z88.0 Allergy status to penicillin; Z88.1 Allergy status to other antibiotic agents; Z88.5 Allergy status to narcotic agent; Z88.6 Allergy status to analgesic agent; Z88.8 Allergy status to other drugs, medicaments and biological substances
CPT/HCPCS: 70450; 71250; 72125; 99284

== ENCOUNTER 2019-09-08 13:29 | Emergency (ER) | payer SELFPAY ==
--- OUTSIDE RECORDS SUMMARY | 2019-09-08 13:32 | XMS REPORT ---
:1975 [facility] [address] [place] [address] Care Team Providers Name Role Phone Unavailable Unavailable Unavailable Payers Payer Name Policy Type Policy Number Effective Date Expiration Date Problems This patient has no known problems. Allergies, Adverse Reactions, Alerts Allergy Name Allergy Status Severity Reaction(s) Onset Inactive Treating Comments Type Date Date Clinician No Known DA Active U 2019-08 00:00:0 0 amoxicillin DA Active MO 2019-08 00:00:0 0 Medications This patient has no known medications. Results Test Description Test Time Test Comments Text Results Atomic Results Result Comments COMPREHENSIVE METABOLIC PANEL 2019-08-28 06:51:00 Test Item Value Reference Range Comments SODIUM (test code=NA) 140 mEq/L 134-147 POTASSIUM (test code=K) 3.6 mEq/L 3.4-5.0 CHLORIDE (test code=CL) 109 mEq/L 100-108 CARBON DIOXIDE (test code=CO2) 22 mEq/L 21-33 ANION GAP (test code=GAP) 13 0-20 GLUCOSE (test code=GLU) 98 mg/dL 70-110 BLOOD UREA NITROGEN (test code=BUN) 12 mg/dL 7-18 GLOMERULAR FILTRATION RATE (test 109.6 95-105 Units of measure=ml/min/1.73 code=GFR) m2 CREATININE (test code=CREAT) 0.6 mg/dL 0.6-1.3 TOTAL PROTEIN (test code=PROT) 6.5 g/dL 6.4-8.2 ALBUMIN (test code=ALB) 3.50 g/dL 3.4-5.0 CALCIUM (test code=CA) 8.4 mg/dL 8.0-10.5 BILIRUBIN TOTAL (test code=BILT) 0.1 MG/DL <1.5 SGOT/AST (test code=AST) 17 IUnit/L 15-37 SGPT/ALT (test code=ALT) 18 IUnit/L 15-65 ALKALINE PHOSPHATASE TOTAL (test 103 IUnit/L 20-125 code=ALKP) CREATINE KINASE (CK)2019-08-28 06:51:00 Test Item Value Reference Range Comments CREATINE KINASE (CK) (test 183 35-232 Result is in INTERNATIONAL code=CK) UNITS/LITER [id number] 06:51:00 Test Item Value Reference Range Comments LIPASE (test code=LIP) 157 IUnit/L 73-393 [id number] 06:51:00 Test Item Value Reference Range Comments MAGNESIUM (test code=MAG) 2.10 mg/dL 1.8-2.4 HCG SERUM [id number] 06:51:00 Test Item Value Reference Range Comments HCG SERUM QUAL (test code=HCGQL) SERUM NEGATIVE NEGATIVE TSH REFLEX TO [id number] 06:51:00 Test Item Value Reference Range Comments TSH REFLEX TO FT4 (test code=TSHREFLEX) 2.15 IU/mL 0.42-5.47 [id number] 06:51:00 Test Item Value Reference Range Comments TROPONIN-I (test < 0.015 ng/mL 0.000-0.045 Negative: <=0.045 code=TROPI) Positive: >=0.046 Correlation with serial results, other cardiac markers andclinical findings is necessary to determine the clinicalsignificance of this result. Results using different methodologies should not be comparedto one another as quantitative results may vary by method. [id number] 06:51:00 Test Item Value Reference Range Comments ACETAMINOPHEN (test code=ACET) < 2 ug/mL 10-30 [id number] 06:51:00 Test Item Value Reference Range Comments SALICYLATE (test code=JEFF) < 1.7 mg/dL 2.8-20.0 [id number] 06:51:00 Test Item Value Reference Range Comments ALCOHOL (test code=ALC) 0.055 G/dL <0.003 Ethyl Alcohol Interpretation: 0.100 gm/dL - Legally Intoxicated 0.300-0.400 gm/dL - Severely Intoxicated >0.400 gm/dL - Potentially LethalResults are for Medical purposes only, and not for Legal orEmployment evaluation purposes. COMPREHENSIVE METABOLIC [id number] 06:50:00 Test Item Value Reference Range Comments SODIUM (test code=NA) 140 mEq/L 134-147 POTASSIUM (test code=K) 3.6 mEq/L 3.4-5.0 CHLORIDE (test code=CL) 109 mEq/L 100-108 CARBON DIOXIDE (test code=CO2) 22 mEq/L 21-33 ANION GAP (test code=GAP) 13 0-20 GLUCOSE (test code=GLU) 98 mg/dL 70-110 BLOOD UREA NITROGEN (test 12 mg/dL 7-18 code=BUN) GLOMERULAR FILTRATION RATE 109.6 95-105 Units of (test code=GFR) measure=ml/min/1.73 m2 CREATININE (test code=CREAT) 0.6 mg/dL 0.6-1.3 TOTAL PROTEIN (test code=PROT) 6.5 g/dL 6.4-8.2 ALBUMIN (test code=ALB) 3.50 g/dL 3.4-5.0 CALCIUM (test code=CA) 8.4 mg/dL 8.0-10.5 BILIRUBIN TOTAL (test 0.1 MG/DL <1.5 code=BILT) SGOT/AST (test code=AST) 17 IUnit/L 15-37 SGPT/ALT (test code=ALT) 18 IUnit/L 15-65 ALKALINE PHOSPHATASE TOTAL 103 IUnit/L 20-125 (test code=ALKP) CREATINE KINASE (CK)2019-08-28 06:50:00 Test Item Value Reference Range Comments CREATINE KINASE (CK) (test 183 35-232 Result is in INTERNATIONAL code=CK) UNITS/LITER [id number] 06:50:00 Test Item Value Reference Range Comments LIPASE (test code=LIP) 157 IUnit/L 73-393 [id number] 06:50:00 Test Item Value Reference Range Comments MAGNESIUM (test code=MAG) 2.10 mg/dL 1.8-2.4 HCG SERUM [id number] 06:50:00 Test Item Value Reference Range Comments HCG SERUM QUAL (test code=HCGQL) SERUM NEGATIVE NEGATIVE TSH REFLEX TO [id number] 06:50:00 Test Item Value Reference Range Comments TSH REFLEX TO FT4 (test code=TSHREFLEX) 2.15 IU/mL 0.42-5.47 [id number] 06:50:00 Test Item Value Reference Range Comments TROPONIN-I (test < 0.015 ng/mL 0.000-0.045 Negative: <=0.045 code=TROPI) Positive: >=0.046 Correlation with serial results, other cardiac markers andclinical findings is necessary to determine the clinicalsignificance of this result. Results using different methodologies should not be comparedto one another as quantitative results may vary by method. [id number] 06:50:00 Test Item Value Reference Range Comments ACETAMINOPHEN (test code=ACET) ug/mL 10-30 [id number] 06:50:00 Test Item Value Reference Range Comments SALICYLATE (test code=JEFF) < 1.7 mg/dL 2.8-20.0 [id number] 06:50:00 Test Item Value Reference Range Comments ALCOHOL (test code=ALC) 0.055 G/dL <0.003 Ethyl Alcohol Interpretation: 0.100 gm/dL - Legally Intoxicated 0.300-0.400 gm/dL - Severely Intoxicated >0.400 gm/dL - Potentially LethalResults are for Medical purposes only, and not for Legal orEmployment evaluation purposes. - XR ELBOW 2 VIEWS [id number] 06:50:00 FAX: Ole Soliz MD [place]: [address]: REG Name: JAGDISH MCFARLAND [facility] Natalia Vazquez : 1975 Age/S: 44/F [address] [place] [address] Unit#: [id number] Loc: [place] [address] Phys: Ole Hill MD Acct: [id number] Dis Date: Status: REG ER PHONE #: [phone] Exam Date: 08/28/2019 0540 FAX #: [phone] Reason: left elbow contusion on exam EXAMS: CPT CODE: [id number] XR ELBOW [address] [place] [id number] EXAM: CR, XR ELBOW 2 V LT: 08/28/2019, 0524 hoursHistory: Left elbow contusion on the exam. Overdose. COMPARISON: None. FINDINGS: Frontal and lateral radiograph of the left elbow is submitted Alignmentis satisfactory. There are no acute fracture or dislocation of the left elbow. No joint effusion is seen. Mild soft tissue swelling. No radiopaque foreign body seen. If indicated, follow-up radiograph or CT scan can be obtained for complete assessment. IMPRESSION: No acute fracture or dislocation of the left elbow seen. Mild soft tissue swelling. SL:[JSYED-H] at 0650 Reported and signed by: Cristian Alvarez M.D. CC: Ole Hill MD Technologist: Kathryn Turner, RT(R); Karie Zhang, RT(R) [facility] Date/Time/By: 08/28/2019 (0650) : By: [email or web address] Print D/T: S : 08/28/2019 (0653) PAGE 1 Signed Report- XR CHEST 1 [id number] 06:48:00 FAX: Ole Soliz MD [phone] [place]: St: REG Name: JAGDISH MCFARLAND [facility] [place] : 1975 Age/S: 44/F [address] [place] [address] Unit#: [id number] Loc: [address] [place] [address] Phys: Ole Hill MD Acct: [id number] Dis Date: Status: REG ER PHONE #: [phone] Exam Date: 08/28/2019 0539 FAX #: [phone] Reason: ACUTE MENTAL STATUS CHANGES EXAMS: CPT CODE: [id number] XR CHEST 1 V [id number] EXAM: CR , XR chest one view: 08/28/2019, 0524 hours HISTORY: ACUTE MENTAL STATUS CHANGES TECHNIQUE: 1 view of the chest.COMPARISON: None available. FINDINGS: Trachea is midline. Heart is normal in size. Pulmonary vascularity is unremarkable. There is no airspace consolidation, pleural effusion or pneumothorax. Osseous structures are unremarkable IMPRESSION: No acute cardiopulmonary disease seen. SL: [JSYED-H] at 0648 Reported and signed by: Cristian Alvarez M.D. CC: Ole Hill MD Technologist: Kathryn Turner, RT(R); Karie Zhang, RT(R) Trnscrd Date/Time/By: 08/28/2019 (0648) : By: [email or web address] Orig Print D/ T: S: 08/28/2019 (0651) PAGE 1 Signed ReportCOMPREHENSIVE METABOLIC [id number] 06:47:00 Test Item Value Reference Range Comments SODIUM (test code=NA) 140 mEq/L 134-147 POTASSIUM (test code=K) 3.6 mEq/L 3.4-5.0 CHLORIDE (test code=CL) 109 mEq/L 100-108 CARBON DIOXIDE (test code=CO2) 22 mEq/L 21-33 ANION GAP (test code=GAP) 13 0-20 GLUCOSE (test code=GLU) 98 mg/dL 70-110 BLOOD UREA NITROGEN (test 12 mg/dL 7-18 code=BUN) GLOMERULAR FILTRATION RATE 109.6 95-105 Units of (test code=GFR) measure=ml/min/1.73 m2 CREATININE (test code=CREAT) 0.6 mg/dL 0.6-1.3 TOTAL PROTEIN (test code=PROT) 6.5 g/dL 6.4-8.2 ALBUMIN (test code=ALB) 3.50 g/dL 3.4-5.0 CALCIUM (test code=CA) 8.4 mg/dL 8.0-10.5 BILIRUBIN TOTAL (test 0.1 MG/DL <1.5 code=BILT) SGOT/AST (test code=AST) 17 IUnit/L 15-37 SGPT/ALT (test code=ALT) 18 IUnit/L 15-65 ALKALINE PHOSPHATASE TOTAL 103 IUnit/L 20-125 (test code=ALKP) CREATINE KINASE (CK)2019-08-28 06:47:00 Test Item Value Reference Range Comments CREATINE KINASE (CK) (test 183 35-232 Result is in INTERNATIONAL code=CK) UNITS/LITER [id number] 06:47:00 Test Item Value Reference Range Comments LIPASE (test code=LIP) 157 IUnit/L 73-393 [id number] 06:47:00 Test Item Value Reference Range Comments MAGNESIUM (test code=MAG) 2.10 mg/dL 1.8-2.4 HCG SERUM [id number] 06:47:00 Test Item Value Reference Range Comments HCG SERUM QUAL (test code=HCGQL) SERUM NEGATIVE NEGATIVE TSH REFLEX TO [id number] 06:47:00 Test Item Value Reference Range Comments TSH REFLEX TO FT4 (test code=TSHREFLEX) IU/mL 0.42-5.47 [id number] 06:47:00 Test Item Value Reference Range Comments TROPONIN-I (test < 0.015 ng/mL 0.000-0.045 Negative: <=0.045 code=TROPI) Positive: >=0.046 Correlation with serial results, other cardiac markers andclinical findings is necessary to determine the clinicalsignificance of this result. Results using different methodologies should not be comparedto one another as quantitative results may vary by method. [id number] 06:47:00 Test Item Value Reference Range Comments ACETAMINOPHEN (test code=ACET) ug/mL 10-30 [id number] 06:47:00 Test Item Value Reference Range Comments SALICYLATE (test code=JEFF) < 1.7 mg/dL 2.8-20.0 [id number] 06:47:00 Test Item Value Reference Range Comments ALCOHOL (test code=ALC) 0.055 G/dL <0.003 Ethyl Alcohol Interpretation: 0.100 gm/dL - Legally Intoxicated 0.300-0.400 gm/dL - Severely Intoxicated >0.400 gm/dL - Potentially LethalResults are for Medical purposes only, and not for Legal orEmployment evaluation purposes. - CT HEAD/BRAIN W/O [id number] 06:39:00 Name: JAGDISH MCFARLAND [facility] Natalia Vazquez : 1975 Age/S: 44 / F [address] [place] [address] Unit #: [id number] Loc: [facility] [id number] Phys: Ole Hill MD Acct: [id number] Dis Date: Status: REG ER PHONE #: [phone] Exam Date: 05 FAX #: [phone] Reason: ACUTE MENTAL STATUS CHANGES EXAMS: CPTCODE: [id number] CT HEAD/BRAIN W/O CONT [id number] EXAM: CT, CT HEAD/BRAIN W/O CONTRAST: 08/28/2019, 0524 hours HISTORY: ACUTE MENTAL STATUS CHANGES COMPARISON : None available. TECHNIQUE: CT images were obtained from the foramen magnum to the vertex without the use of intravenous contrast on a multidetector CT. CT imaging was performed with exposure control parameters to reduce radiation dose. Coronal and sagittal reconstructions were obtained. CT radiation dose DLP: 401.46 mGy-cm FINDINGS: BRAIN PARENCHYMA: The brain parenchyma is normal with normal isabel andwhite interfaces. The periventricular white matter appears unremarkable. No focal mass lesionson this noncontrast head CT. No mass effect, midline shift or edema. There are no intra-axial or extra-axial fluid collections , intraventricular or intraparenchymal hemorrhage. No low attenuation demarcating areas on this non-contrast CT to suggest subacute stroke. VENTRICLES: The lateral ventricles, third and fourth ventricles appear unremarkable. The basilar cisterns are normal. ORBITS, MASTOIDS AND PARANASAL SINUSES: The visualized orbits are unremarkable. The visualized paranasal sinuses are unremarkable. The mastoid air cells are clear. SKULL: There are no osseous abnormalities. If there is further concern for intracranial pathology or acute stroke, MRI of the brain may be performed for complete assessment. IMPRESSION: 1. No acute intracranialabnormality. No noncontrast CT evidence of mass, hemorrhage or subacute stroke. SL: JSYED-H PAGE 1 Signed Report (CONTINUED) Name: JAGDISH MCFARLAND [facility] : 1975 Age/S: 44 / F [address] [place] [address] Blvd Unit #: [id number] Loc: [place] [address] Phys: Ole Hill MD Acct: [id number] Dis Date: Status: REG ER PHONE #: [phone] Exam Date: 08/28/2019525 FAX #: [phone] Reason: ACUTE MENTAL STATUS CHANGES EXAMS: CPT CODE: [id number] CT HEAD/BRAIN W/O CONT [id number] <Continued> at 0639 Reported and signed by: Cristian Alvarez M.D. CC: Ole Hill MD Technologist:Saurabh Gomez, RT(R) CTDI: DLP: Trnscb Date/Time: 08/28/2019 (0639) [email or web address] Orig Print D/T: S: 08/28/2019 (0642)PAGE 2 Signed ReportCOMPREHENSIVE METABOLIC [id number] 06:35:00 Test Item Value Reference Range Comments SODIUM (test code=NA) mEq/L 134-147 POTASSIUM (test code=K) mEq/L 3.4-5.0 CHLORIDE (test code=CL) mEq/L 100-108 CARBON DIOXIDE (test code=CO2) mEq/L 21-33 ANION GAP (test code=GAP) 0-20 GLUCOSE (test code=GLU) mg/dL 70-110 BLOOD UREA NITROGEN (test code=BUN) mg/dL 7-18 GLOMERULAR FILTRATION RATE (test code=GFR) 95-105 CREATININE (test code=CREAT) mg/dL 0.6-1.3 TOTAL PROTEIN (test code=PROT) g/dL 6.4-8.2 ALBUMIN (test code=ALB) g/dL 3.4-5.0 CALCIUM (test code=CA) mg/dL 8.0-10.5 BILIRUBIN TOTAL (test code=BILT) MG/DL <1.5 SGOT/AST (test code=AST) IUnit/L 15-37 SGPT/ALT (test code=ALT) IUnit/L 15-65 ALKALINE PHOSPHATASE TOTAL (test code=ALKP) IUnit/L 20-125 CREATINE KINASE (CK)2019-08-28 06:35:00 Test Item Value Reference Range Comments CREATINE KINASE (CK) (test code=CK) 35-232 [id number] 06:35:00 Test Item Value Reference Range Comments LIPASE (test code=LIP) IUnit/L 73-393 [id number] 06:35:00 Test Item Value Reference Range Comments MAGNESIUM (test code=MAG) mg/dL 1.8-2.4 HCG SERUM [id number] 06:35:00 Test Item Value Reference Range Comments HCG SERUM QUAL (test code=HCGQL) SERUM NEGATIVE NEGATIVE TSH REFLEX TO [id number] 06:35:00 Test Item Value Reference Range Comments TSH REFLEX TO FT4 (test code=TSHREFLEX) IU/mL 0.42-5.47 [id number] 06:35:00 Test Item Value Reference Range Comments TROPONIN-I (test code=TROPI) ng/mL 0.000-0.045 [id number] 06:35:00 Test Item Value Reference Range Comments ACETAMINOPHEN (test code=ACET) ug/mL 10-30 [id number] 06:35:00 Test Item Value Reference Range Comments SALICYLATE (test code=JEFF) mg/dL 2.8-20.0 [id number] 06:35:00 Test Item Value Reference Range Comments ALCOHOL (test code=ALC) G/dL <0.003 PROTHROMBIN [id number] 06:27:00 Test Item Value Reference Range Comments PROTHROMBIN TIME PATIENT 11.2 SECONDS 9.3-12.9 (test code=PTP) INTERNATIONAL NORMAL RATIO 1.0 0.8-1.2 TARGET INR BY (test code=INR) INDICATION Indication INR1. Prophylaxis of venous thrombosis 2.0 - 3.0 (orthopedic surgery), Prophylaxis of venous thrombosis (other than high-risk surgery), Treatment of Deep Vein Thrombosis/Pulmonary Embolism, Prevention of systemic embolism - Tissue heart valves, Acute Myocardial Infarction (to prevent systemic embolism), Valvular heart disease, Atrial Fibrillation, Bileaflet mechanical valve in aortic position.2. Mechanical prosthetic valves (high risk), 2.5 - 3.5 Presence of Lupus Anticoagulant or Antiphospholipid Antibodies, Prevention of systemic embolism - Acute Myocardial Infarction (to prevent recurrent infarct). THROMBOPLASTIN TIME [id number] 06:27:00 Test Item Value Reference Range Comments THROMBOPLASTIN TIME PARTIAL 31.5 Seconds 25.0-39.5 Therapeutic Range: (test code=PTT) 50.4 - 88.3 Seconds Effective 11/23/2018 CBC W/AUTO [id number] 06:18:00 Test Item Value Reference Range Comments WHITE BLOOD CELL (test code=WBC) 16.50 x10 3/uL 4.5-11.0 RED BLOOD CELL (test code=RBC) 3.62 x10 6/uL 3.54-5.02 HEMOGLOBIN (test code=HGB) 10.9 g/dL 11.0-15.0 HEMATOCRIT (test code=HCT) 33.4 % 33.0-45.0 MEAN CELL VOLUME (test code=MCV) 92.3 fL 81.0-99.0 MEAN CELL HGB (test code=MCH) 30.1 pg 27.0-33.0 MEAN CELL HGB CONCETRATION (test code=MCHC) 32.6 g/dL 33.0-37.0 RED CELL DISTRIBUTION WIDTH CV (test 12.2 % 11.5-14.5 code=RDW) RED CELL DISTRIBUTION WIDTH SD (test 41.3 fL 37.0-54.0 code=RDW-SD) PLATELET COUNT (test code=PLT) 280 x10 3/uL 150-400 MEAN PLATELET VOLUME (test code=MPV) 11.3 fL 7.0-9.0 NEUTROPHIL % (test code=NT%) 82.4 % 56.0-77.0 IMMATURE GRANULOCYTE % (test code=IG%) 0.4 % 0.0-2.0 LYMPHOCYTE % (test code=LY%) 11.0 % 14.0-32.0 MONOCYTE % (test code=MO%) 5.8 % 4.8-9.0 EOSINOPHIL % (test code=EO%) 0.1 % 0.3-3.7 BASOPHIL % (test code=BA%) 0.3 % 0.0-2.0 NUCLEATED RBC % (test code=NRBC%) 0.0 % 0-0 NEUTROPHIL # (test code=NT#) 13.59 x10 3/uL 2.0-7.6 IMMATURE GRANULOCYTE # (test code=IG#) 0.07 x10 3/uL 0.00-0.03 LYMPHOCYTE # (test code=LY#) 1.81 x10 3/uL 1.0-3.8 MONOCYTE # (test code=MO#) 0.96 x10 3/uL 0.1-0.8 EOSINOPHIL # (test code=EO#) 0.02 x10 3/uL 0.0-0.2 BASOPHIL # (test code=BA#) 0.05 x10 3/uL 0.0-0.2 NUCLEATED RBC # (test code=NRBC#) 0.00 x10 3/uL 0.0-0.1 MANUAL DIFF REQUIRED (test code=MDIFF) NO LACTIC [id number] 06:08:00 Test Item Value Reference Range Comments LACTIC ACID (test code=LACT) 2.1 mmol/L 0.4-1.9 ARTERIAL BLOOD [id number] 05:56:00 Test Item Value Reference Range Comments ARTERIAL BLOOD GAS PH (test 7.309 7.35-7.45 code=PHA) ARTERIAL BLOOD GAS PCO2 (test 41.8 mmHg 35-45 code=PCO2A) ARTERIAL BLOOD GAS PO2 (test 60 mmHg 80-100 code=PO2A) BICARBONATE TOTAL HCO3 (test 21.0 mmol/L 22.0-26.0 code=HCO3) BASE EXCESS (test code=AIDEN) -5.0 mmol/L -4-4 ABG O2 SATURATION (test 88 % 90-100 code=SATA) ABG DELIVERY (test code=BARBARA) Room Air Performed by certified roll mill operator at [facility] ABG TEMPERATURE (test 98.7 F code=TEMPA) ABG SITE (test code=SITEA) R Rad TCO2 ARTERIAL (test 22 code=TCO2A) TROPONIN-I [id number] 05:55:00 Test Item Value Reference Range Comments TROPONIN-I RAPID (test 0.00 ng/mL 0.00-0.08 Performed by certified roll mill operator code=TROPBILLIE) at [facility] Negative: <=0.08 Positive: >=0.09An elevated troponin value alone is not sufficient todiagnose a myocardial infarction. Rather, the patient sclinical presentation (history, physical exam) and ECGshould be used in conjunction with troponin in thediagnostic evaluation of suspected myocardial infarction. Aserial sampling protocol is recommended to facilitate the identification of temporal changes in troponin levels characteristic of [place]. DRUGS OF ABUSE SCREEN [id number] 05:43:00 Test Item Value Reference Range Comments URN COCAINE (test code=COCAURN) NEGATIVE NEGATIVE URN CANNABINOIDS (test NEGATIVE NEGATIVE code=CANNABURN) URN AMPHETAMINE (test NEGATIVE NEGATIVE code=AMPHETURN) URN BARBITURATE (test NEGATIVE NEGATIVE code=BARBITURN) URN BENZODIAZEPINE (test NEGATIVE NEGATIVE Cut-off value:200 ng/mL code=BENZOURN) URN OPIATES (test NEGATIVE NEGATIVE Cut-off value:2000 ng/mL code=OPIATURN) URN PHENCYCLIDINE (PCP) (test NEGATIVE NEGATIVE Cutoffs:Barbiturates code=PHENCURN) 200 ng/mLBenzodiazepines 200 ng/mLTHC Cannabinoids 50 ng/mLOpiates(Morphine) 2000 ng/mLAmphetamine 1000 ng/mLCocaine 300 ng/mLPCP phencyclidine 25 ng/mL Unconfirmed screening results shouldnot be used for non-medical purposes. UA RFLX MICR CULT IF [id number] 05:42:00 Test Item Value Reference Range Comments UA COLOR (test code=COLU) STRAW YEL/STRAW UA APPEARANCE (test code=APPU) CLEAR CLEAR UA GLUCOSE DIPSTICK (test code=DGLUU) NEGATIVE NEGATIVE UA BILIRUBIN DIPSTICK (test code=BILU) NEGATIVE NEGATIVE UA KETONE DIPSTICK (test code=KETU) NEGATIVE NEGATIVE UA SPECIFIC GRAVITY (test code=SGU) 1.006 1.005-1.030 UA BLOOD DIPSTICK (test code=AMANDA) NEGATIVE NEGATIVE UA PH DIPSTICK (test code=BRAD) 6.0 5.0-7.0 UA PROTEIN DIPSTICK (test code=PROU) NEGATIVE NEGATIVE UA UROBILINIOGEN DIPSTICK (test code=URO) 0.2 mg/dL 0.2-1.0 UA NITRITE DIPSTICK (test code=MADHAV) NEGATIVE NEGATIVE UA LEUKOCYTE ESTERASE DIPSTICK (test code=LEUU) NEGATIVE NEGATIVE UA WBC (test code=WBCU) 0-3 WBC/HPF 0-3 UA RBC (test code=RBCU) 0-3 RBC/HPF 0-3 UA WBC NO REFLEX (test code=WBCUCL) 0-3 WBC/HPF 0-3 UA BACTERIA (test code=BACU) TRACE /HPF NONE SEEN UA SQUAMOUS CELLS (test code=SQU) 0-5 /HPF NONE SEEN UA MUCUS (test code=MUCU) TRACE /LPF NONE SEEN Indication for culture: Flank PainSpecimen Description: CLEAN CATCH
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
--- NOTE | 2019-09-08 15:47 | RAD REPORT ---
EXAM DESCRIPTION: RAD - Chest Pa And Lat (2 Views) - 09/08/2019 2:49 pm CLINICAL HISTORY: CHEST PAIN COMPARISON: Chest Pa And Lat (2 Views) dated 02/07/2019; Chest Single View dated 10/13/2018 TECHNIQUE: Frontal and lateral views of the chest were obtained. FINDINGS: The lungs are clear of acute infiltrate mass. Chronic interstitial pattern evident matchin g comparison. Heart size is normal and central vasculature is within normal limits. No pleural eff usion or pneumothorax seen. No acute bony finding noted. No aortic abnormality. IMPRESSION: No acute cardiopulmonary process. No significant interval change.
[2019-09-08 20:05] VITALS: BP 110/82; TEMP 98.6; O2SAT 100
== END 2019-09-08 16:02 | disposition home or self-care (01) ==
LOC: ER 13:29
DX: S20.219A Contusion of unspecified front wall of thorax, initial encounter (principal); S09.90XA Unspecified injury of head, initial encounter; M79.18 Myalgia, other site; Y04.2XXA Assault by strike against or bumped into by another person, initial encounter; Y93.9 Activity, unspecified; Y92.9 Unspecified place or not applicable; Z88.1 Allergy status to other antibiotic agents; Z88.6 Allergy status to analgesic agent; Z88.0 Allergy status to penicillin
CPT/HCPCS: 71046; 72050; 99284

== ENCOUNTER 2020-03-10 21:11 | Emergency (ER) | payer SELFPAY ==
--- OUTSIDE RECORDS SUMMARY | 2020-03-10 21:13 | XMS REPORT | Summary of Care ---
:1975 Author Organization [facility] Address [address] [place] [id number] Care Team Providers Name Role Phone Dianne Sanchez Primary Care Provider Reason for Referral Radiology Services (Routine) Status Reason Specialty Diagnoses / Referred By Referred To Procedures Contact Contact New Request Diagnostic Diagnoses Well woman exam Daniel, Radiology Procedures BI SCREENING MAMMOGRAM BILATERAL YURIDIA Bangura [address] [place] [address] Reason for Visit Reason Comments Well Woman Exam Encounter Details Date Type Department Care Team Description 03/06/2020 [facility] Well woman exam (Primary Dx); YURIDIA Khalil Encounter for contraceptive management, unspecified type; [address] H/O: hyst erectomy; [address] Pain pelvic; [place] [phone] Hot flashes; [id number] Screening examination for STD (sexually transmitted disease); [phone] Cervical high risk human papillomavirus (HPV) DNA test positive Allergies Active Allergy Reactions Severity Noted Date Comments Amoxicillin Rash 12/21/2018 Ketorolac Tromethamine Hives 12/21/2018 Ondansetron Hcl (Pf) Hives 12/21/2018 documented as of this encounter (statuses as of 03/06/2020) Medications Medication Sig Dispensed Refills Start Date End Date Status OXcarbazepine 150 mg Take by 0 Active tablet mouth 2 (two) times daily. ALPRAZolam (XANAX) 1 Take 1 mg by 0 2019 Discontinued mg tablet mouth 3 (three) times daily. zolpidem (AMBIEN) 10 Take 10 mg by 0 03/06 Discontinued mg tablet mouth at bedtime as needed for Insomnia. mirtazapine 15 mg Take 7.5 mg 0 03/06/2020 Discontinued tablet by mouth at bedtime. tinidazole 500 mg Take 4 4 tablet 0 12/23/2018 03/06/2020 Discontinued tabletIndications: tablets by Trichimoniasis mouth daily with breakfast. documented as of this encounter (statuses as of 03/06/2020) Active Problems Problem Noted Date Pain pelvic 03/06/2020 Hot flashes 03/06/2020 Cervical high risk human papillomavirus (HPV) DNA test positive 12/23/2018 Overview: Normal cells with HPV+, patient will nee d Cotesting in 1 year (2019). Trichimoniasis 12/23/2018 Well woman exam 12/21/2018 H/O: hysterectomy 12/21/2018 Vaginal discharge 12/21/2018 Screening examination for STD (sexually transmitted di sease) 12/21/2018 History of seizures 12/21/2018 History of depression 12/21/2018 History of anxiety 12/21/2018 documented as of this encounter (statuses as of 03/06/2020) Social History Tobacco Use Types Packs/Day Years Used Date Never Smoker Smokeless Tobacco: Never Used Alcohol Use Drinks/Week oz/Week Comments Yes social Sex Assigned at Date Recorded Not on file Job Start Date Occupation Industry Not on file Not on file Not on file Travel History Travel Start Travel End No recent travel history available. COVID-19 Exposure Response Date Recorded In the last month, have you been in contact with No / Unsure 03/06/2020 2:36 PM CDT someone who was confirmed or suspected to have Coronavirus / COVID-19? documented as of this encounter Last Filed Vital Signs Vital Sign Reading Time Taken Comments Blood Pressure 125/87 03/06/2020 2:37 PM CDT Pulse 102 03/06/2020 2:37 PM CDT Temperature 36.9 C (98.4 F) 03/06/2020 2:37 PM CDT Respiratory Rate 16 03/06/2020 2:37 PM CDT Oxygen Saturation - - Inhaled Oxygen Concentration - - Weight 54.9 kg (121 lb) 03/06/2020 2:37 PM CDT Height 154.9 cm (5' 1") 03/06/2020 2:37 PM CDT Body Mass Index 22.86 03/06/2020 2:37 PM CDT documented in this encounter Patient Instructions Patient InstructionsSamuelJing izaguirreCAL - 03/06/2020 2:00 PM CDT Patient Education Clinical Breast Exam Many health organizations recommend a yearly clinical breast exam. This exam may be done by a patient access associate, family healthcare provider, nurse practitioner, nurse music theory professor, or specially trained nurse. Yearly breast exams help tomake surethat breast conditions are found early. Your healthcare providers role A healthcare professional knows the tests and follow-up care needed if a problem is found. Your clinical exam is also a great time to ask questions about breast self-exams. You can find out if yourechecking your breasts in the best way. Or you may want to ask how , breast implants, or breast reduction surgery affect the way you should check your breasts. Diagnostic tests If a clinical exam reveals a breast change, you may have other tests to find out more. These tests may include: Mammography. A low-dose X-ray of your breast tissue. Ultrasound. An imaging test that uses sound waves to create images of your breast. Biopsy. A small amount of breast tissue is removed by needle or by a cut (incision). The tissue is then checked under a microscope. Guidelines for having clinical breast exams The [place] [employer] recommends that starting at age 29, you should have a clinical breast exam every 1 to 3 years. After age 40, have a clinical breast exam each year. If youre at higher risk for breast cancer, you may need exams more often. Risk factors for breast cancer may include: Being over 50 or postmenopausal Having a family history of breast cancer Having the BRCA1 or BRCA2 gene mutation or certain other gene mutations Having more menstrual periods due to starting menstruation early(before age 12) or having a late menopause (after age 55) Having no pregnancies Having a first after age 30 Being obese Having a history of radiation treatment to your chest area Exposure to ROXANE during your mother's Not being active Drinking too much alcohol Having dense breast tissue Taking hormone therapy after menopause Other health organizations have different recommendations. Talk with your healthcare provider about what is best for you. Ryan cummings reviewed this educational content on 03/10/201719996402-0627 [employer]. [address] [place] [address]. All rights reserved. This information is not intended as a substitute for professional medical care. Always follow your healthcare professional's instructions. Patient Education Breast Health: Breast Self-Awareness What is breast self-awareness? Breast self-awareness is knowing how your breasts normally look and feel. Your breasts change as yougo through different stages of your life. So its important to learn what is normal for your breasts. Knowing about your breasts helps you spot any changes in them right away. Tell your healthcare provider about any changes. Why is breast self-awareness important? Many experts now say that women should focus on breast self-awareness instead of doing a breast self-examination (BSE). These experts include the [place] [employer] and the [place] [employer]. Some experts even advise not teaching women to do a BSE. Thats because research hasnt shown a clear benefit to doing BSEs. Breast self-awareness is different than a BSE. It isnt about following a certain method and schedule. Its about knowing what's normal for your breasts. That way you can spot even small changes right away. If you see any changes, tell your healthcare provider. Changes to look for Call your healthcare provider if you find any changes in your breasts that worry you. These changes may be: A lump Nipple discharge other than breastmilk, especially if it's bloody Swelling A change in size or shape Skin changes, such as redness, thickening, or dimpling of the skin Swollen lymph nodes in the armpit Nipple problems, such as pain or redness If you find a lump Call your provider if you find lumpiness in one breast. Also call if you feel something different inthe tissue or feel a definite lump. Sometimes lumpiness may be due to menstrual changes. But there may be reason for concern. Your provider may want to see you right away if you have: Nipple discharge that is bloody Skin changes on your breast, such as dimpling or puckering Its okay to be upset if you find a lump. Be sure to call your provider right away. Remember that most breast lumps are benign. This means they are not cancer. [employer] last reviewed this educational content on 03/10/201719998155-1153 [employer]. [address] [place] [address], [place] [address]. All rights reserved. This information is not intended as a substitute for professional medical care. Always follow your healthcare professional's instructions. Patient Education Prevention Guidelines,Women Ages 40 to 49 Screening tests and vaccines are an important part of managing your health. A screening test is doneto find diseases in people who don't have any symptoms. The goal is to find a disease early so lifestyle changes and checkups can reduce the risk of disease. Or the goal may be to detect it early to treat it most effectively. Screening tests are not used to diagnose a disease. But they are used to seeif more testing is needed.Health counseling is important, too. Below are guidelines for these, forwomen ages 40 to 49. Talk with your healthcare provider to make sure youre up-to-date on what youneed. Screening Who needs it How often Type 2 diabetes or prediabetes All women beginning at age 45 and women without symptoms at any age who are overweight or obese and have 1 or more additional risk factors for diabetes At least every 3 years1 Type 2 diabetes or prediabetes All women diagnosed with gestational diabetes Lifelong testing every 3 years Type 2 diabetes All women with prediabetes Every year Alcohol misuse All women in this age group At routine exams Blood pressure All women in this age group Yearly checkup if your blood pressure is normal Normal blood pressure is less than 120/80 mm Hg If your blood pressure reading is higher than normal, follow the advice of your healthcare provider Breast cancer All women at average risk in this age group Screening with a mammogram can start at age 40.2 Talk with your healthcare provider to help you decide when to start screening. At age 45 startyearly mammograms.3 Cervical cancer All women in this age group, except women who have had a complete hysterectomy Pap test every 3 yearsor Pap test plushuman papilloma virus (HPV)test every 5 years Colorectal cancer Women age 45 years and older at average risk Multiple tests are available and are used at different times. Possible tests include: Flexible sigmoidoscopy every 5 years, or Colonoscopy every [address], [address] colonography (virtual colonoscopy) every 5 years, or Yearly fecal occult blood test, or Yearly fecal immunochemical test every year, or Stool DNA test, every 3 years If you choose a test other than a colonoscopy and have an abnormal test result, you will need to follow-up with a colonoscopy. Screening advice varies among expert groups. Talk with your healthcare provider about which tests are best for you. Some people should be screened using a different schedule because of their personal or family healthhistory. Talk with your healthcare provider about your health history. Chlamydia Women at increased risk for infection At routine exams if you're at risk or have symptoms Depression All women in this age group At routine exams Gonorrhea Sexually active women at increased risk for infection At routine exams Hepatitis C Anyone at increased risk; 1 time for those born between 1945 and 1964 At routine exams High cholesterol or triglycerides All women ages 45 and older who are at risk for coronary artery disease; younger women, talk with your healthcare provider At least every 5 years HIV All women At routine exams. Those with risk factors for HIV should be tested at least annually. Obesity All women in this age group At routine exams Syphilis Women at increased risk for infectiontalk with your healthcare provider At routine exams Tuberculosis Women at increased risk for infectiontalk with your healthcare provider Ask your healthcare provider Vision All women in this age group Complete exam at age 40 and eye exams every 2 to 4 years. If you have a chronic disease, ask your healthcare provider how often you should have your eyes examined.4 Vaccine Who needs it How often Chickenpox (varicella) All women in this age group who have no record of this infection or vaccine 2doses; the second dose should be given at least 4 weeks after the first dose Hepatitis A Women at increased risk for infectiontalk with your healthcare provider 2 doses given6 months apart Hepatitis B Women at increased risk for infectiontalk with your healthcare provider 3 doses over 6 months; second dose should be given 1 month after the first dose; the third dose should be given atleast 2 months after the second dose and at least 4 months after the first dose Haemophilus influenzaeType B (HIB) Women at increased risk 1 to 3 doses Influenza (flu) All women in this age group Once a year Measles, mumps, rubella (MMR) All women in this age group who have no record of these infections or vaccines 1 or 2 doses Meningococcal Women at increased risk for infectiontalk with your healthcare provider 1 or more doses Pneumococcal conjugate vaccine (PCV13)and pneumococcal polysaccharidevaccine(PPSV23) Women at increased risk for infectiontalk with your healthcare provider 1 or 2 doses Tetanus/diphtheria/pertussis (Td/Tdap) booster All women in this age group A 1- time dose of Tdap instead of a Td booster after age 18, then Td every 10 years Counseling Who needs it How often BRCA gene mutation testing for breast and ovarian cancer susceptibility Women with increased risk for having gene mutation When your risk is known Breast cancer and chemoprevention Women at high risk for breast cancer When your risk is known Diet and exercise Women who are overweight or obese When diagnosed, and then at routine exams Domestic violence Women at the age in which they are able to have children At routine exams Sexually transmitted infection prevention Women at increased risk for infectiontalk with your healthcare provider At routine exams Use of tobacco and the health effects it can cause All women in this age group Every exam 1 [place] [employer] 2 [place] [employer] 3 [place] [employer] 4 [place] [employer] last reviewed this educational content on 06/10/201719994421-5472 [employer]. [address] [place] [address]. All rights reserved. This information is not intended as a substitute for professional medical care. Always follow your healthcare professional's instructions. Patient Education Understanding STIs When it comes to sex, nothing is risk-free. Any sexual contact with the penis, vagina, anus, or mouth can spread a sexually transmitted infection (STI). These include chlamydia, gonorrhea, herpes, HIV,and genital warts. STIs are also known as sexually transmitted diseases (STDs). The only sure way toprevent STIs is not having sex (abstinence). But there are ways to make sex safer. Use a latex condom each time you have sex. And choose your partner wisely. Use condoms for safer sex If you have sex, latex condoms provide the best protection against STIs. Latex condoms stop the exchange of body fluids that carry certain STIs. They also limit contact with affected skin. Be aware that a condom doesnt cover all skin. So affected skin that isn't covered can still transfer disease. But youre safer with a condom than without one. Use a condom even if you use other control. control methods such as the pill or IUD help prevent , but they don't protect against STIs. Choose the right condom Condoms made of latex prevent disease best. If youre allergic to latex, use polyurethane condoms instead. Male condoms fit over the penis. Female condoms line the vagina. Before buying a condom, read the label to be sure it prevents disease. Some novelty condoms dont. The right lubricant helps Buy lubricated condoms or use lubricant. This provides greater comfort and reduces the risk for condom breakage. Use only water-based lubricants. Dont use oil, lotion, or petroleum jelly. They can weaken the condom, causing breakage. Also, you may want to choose lubricants without nonoxynol-9. This spermicide may cause irritation. It can raise the risk for certain STIs. Use condoms correctly For condoms to work, they must be used the right way. Keep these tips in mind: Use a new latex condom each time you have sex. Slip the condom on the penis before any contact ismade. When ready to withdraw, hold the rim of the condom as the penis pulls out. This prevents the condom from slipping off. Check the expiration date before using a condom. Dont store condoms in places that can get hot, such as a car or a wallet that is carried in a back pocket. Get to know your partner Safer sex is a process. It involves getting to know your partner and making informed choices. Ask each other how many partners you have had in the past, and how many you have now. Find out if either ofyou has HIV or any other STI. If you decide to have sex, use a condom each time. Dont stop using condoms unless youre sure neither of you has other partners and youve both been tested to confirm you dont have HIV or other STIs. Then stay free of disease by having sex only with each other (monogamy). Keep your cool Dont let alcohol or drugs cloud your judgment. They could lead you to have sex with someone you wouldnt have chosen if you were sober. Or you might forget to use a condom. If you do plan to have sex, keep a latex condom with you. Dont wait until youre in the heat of passion to try to find one. Consider abstinence The only way to be sure you wont get an STI is to abstain from sex. Abstinence is a choice that many people make at some point in their life. Maybe you want to wait until you are sure youre readybefore you have sex. Maybe youd like a break from the responsibilities of sex for a while. Or maybe you just want to know your partner better before taking the next step. Abstinence is a choice you can make now to protect your future. [employer] last reviewed this educational content on 07/10/201819991988-7347 [employer]. [address] [place] [address], [place] [address]. All rights reserved. This information is not intended as a substitute for professional medical care. Always follow your healthcare professional's instructions. Patient Education Understanding HIV and AIDS It's important to know how HIV can get into your body and what happens once its there. Then youll be better prepared to protect yourself or others against this virus. A person with HIV can look and feel perfectly healthy. But that person can give HIV to others as soon as he or she is infected with the virus. Having unsafe or unprotected sex or sharing needles puts you at risk for HIV. Talk with your healthcare provider about ways to protect yourself or a loved one from getting HIV. How HIV infection progresses After HIV enters the body, it attacks the immune system in the stages below. A person with HIV can infect others once the virus gets into the blood. HIV with no symptoms. A person with HIV may have no symptoms for years. The only sign of infection may be a positive blood test for HIV 2 weeks to 3 months or later after HIV enters the body. HIV with symptoms. Some people develop an illness similar to mono (mononucleosis) 2 to 4 weeks after the virus enters the body. This is called acute retroviral syndrome. Symptoms may include swollen lymph glands, chills, fever, night sweats, weakness, weight loss, skin rashes, mouth ulcers, or sore t hroat. Symptoms may be mild or the person can feel quite sick. Even without treatment the symptoms almost always go away in a few days or up to 2 to 3 weeks. Then the person has no symptoms, often for years. But over time the immune system starts to get weaker and symptoms start appearing. People at this stage may have a yeast infection in the mouth (oral thrush), shingles, skin problems, pneumonia, diarrhea that keeps coming back, or weight loss. AIDS. AIDS is the most advanced stage of HIV infection, when the immune system is severely weakened.Certain rare diseases and cancers that normally would not occur, now can occur because the body can no longer fight them well enough. It is often these diseases that cause in people with AIDS. HIV may also directly attack the brain and nervous system. This causes seizures and loss of memory and body movement. It also affects many other parts of the body. This leads to problems such as anemia, low white blood cell count, diarrhea, belly pain, skin problems, and many others. How HIV enters the body HIV is carried in semen, vaginal fluid, blood, and breastmilk. During sex, HIV can enter the body. It gets in through the fragile tissue and linings, sores, or cuts in or around the vagina, penis, anus, and mouth. During drug use, tattooing, or body piercing, the virus can enter the blood through an infected needle. A mother who has HIV can infect her child during , childbirth, and . [employer] last reviewed this educational content on 01/08/201919993491-8468 [employer]. [address] [place] [address]. All rights reserved. This information is not intended as a substitute for professional medical care. Always follow your healthcare professional's instructions. Patient Education Eating Heart-Healthy Foods Eating has a big impact on your heart health. In fact, eating healthier can improve several of your heart risks at once. For instance, it helps you manage weight, cholesterol, and blood pressure. Here are ideas to help you make heart- healthy changes without giving up allthe foods and flavors you love. Getting started Talk with your healthcare provider about eating plans, such as the DASH or Mediterranean diet. You may also be referred to a dietitian. Change a few things at a time. Give yourself time to get used to a few eating changes before adding more. Work to create a tasty, healthy eating plan that you can stick to for the rest of your life. Goals for healthy eating Below are some tips to improve your eating habits: Limit saturated fats and trans fats. Saturated fats raise your levels of cholesterol, so keep these fats to a minimum. They are found in foods such as fatty meats, whole milk, cheese, and palm and coconut oils. Avoid trans fats because they lower good cholesterol as well as raise bad cholesterol. Trans fats are most often found in processed foods. Reduce sodium (salt) intake. Eating too much salt may increase your blood pressure. Limit your sodium intake to 2,300 milligrams (mg) per day(the amount in 1 teaspoon of salt), or less if your healthcare provider recommends it. Dining out less often and eating fewer processed foods are two great ways to decrease the amount of salt you consume. Managing calories. A calorie is a unit of energy. Your body corcoran calories for fuel, but if you eat more calories than your body corcoran, the extras are stored as fat. Your healthcare provider can help you create a diet plan to manage your calories. This will likely include eating healthier foods as well as exercising regularly. To help you track your progress, keep a diary to record what you eat and how often you exercise. Choose the right foods Aim to make these foods bobby of your diet. If you have diabetes, you may have different recommendations than what is listed here: Fruits and vegetables provide plenty of nutrients without a lot of calories. At meals, fill half your plate with these foods. Split the other half of your plate between whole grains and lean protein. Whole grains are high in fiber and rich in vitamins and nutrients. Good choices include whole-wheat bread, pasta, and brown rice. Lean proteins give you nutrition with less fat. Good choices include fish, skinless chicken, and beans. Low-fat or nonfat dairy provides nutrients without a lot of fat. Try low-fat or nonfat milk, cheese, or yogurt. Healthy fats can be good for you in small amounts. These are unsaturated fats, such as olive oil,nuts, and fish. Try to have at least 2 servings per week of fatty fish, such as salmon, sardines, mackerel, rainbow trout, and albacore tuna. These contain omega-3 fatty acids, which are good for your heart. Flaxseed is another source of a heart-healthy fat. More on heart-healthy eating Read food labels Healthy eating starts at the grocery store. Be sure to pay attention to food labels on packaged foods. Look for products that are high in fiber and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
--- OUTSIDE RECORDS SUMMARY | 2020-03-10 21:13 | XMS REPORT | Summary of Care ---
:1975 Author Organization [facility] - Health Address [address] [place] [address] Care Team Providers Name Role Phone Dianne Sanchez Primary Care Provider Encounter Details Date Type Department Care Team Description 03/06/2020 Orders Only [facility] Doctor Unassigned, No [address] [facility] [place] [address] [address] [place] [id number] Allergies Active Allergy Reactions Severity Noted Date [...] of 03/06/2020) Active Problems Problem Noted Date Cervical high risk human papillomavirus (HPV) DNA test positive 12/23/2018 Overview: Normal cells with HPV+, patient will nee d Cotesting in 1 year (2019). Trichimoniasis 12/23/2018 Well woman exam 12/21/2018 H/O: hysterectomy 12/21/2018 Vaginal discharge 12/21/2018 Encounter for contraceptive management, unspecified ty pe 12/21/2018 History of seizures 12/21/2018 History of [...] filedocumented in this encounter Plan of Treatment Health Maintenance Due Date Last Done Comments DTaP,Tdap,and Td Vaccines (1 1988 - Tdap) Depression Screening 1989 Breast Cancer Screening 2017 (MAMMOGRAM) INFLUENZA VACCINE (#1) 2020 PAP SMEAR 01/18/2022 01/18/2019, 12/21/2018 PNEUMOCOCCAL 0-64 YEARS Aged Out No longe r eligible based COMBINED SERIES on patient's age to complete [facility] to [facility] documented as of this encounter Procedures Procedure Name Priority Date/Time Associated Diagnosis Comme nts ASSIGNMENT OF BENEFITS Routine 03/06/2020 2:17 PM CDT documented in this encounter Results Not on filedocumented in this encounter Insurance Payer Benefit Plan Subscriber ID Effective Phone Address Typ e / Group Dates [id number] xxxxxxxxx 2018-Prese [phone] Medicaid WOMEN nt [address] [place] [address] [facility] xxxxxxxxx 2019-Prese [phone] [address] X Medicaid WOMEN WOMEN nt [address] [place] [address] documented as of this encounter Advance Directives Name Relationship Healthcare Agent Communication Relationship Murali Hay Other Primary healthcare agent Ariel Rios Sibling Primary healthcare agent Mami Cabello [facility] agent (Mobile) ([place])
--- OUTSIDE RECORDS SUMMARY | 2020-03-10 21:13 | XMS REPORT | Continuity of Care Document ---
:1975 Author Organization [facility] t Address [address] [place] [address] Care Team Providers Name Role Phone Dianne Cohen Attending Clinician Problems This patient has no known problems. Allergies, Adverse Reactions, Alerts This patient has no known allergies or adverse reactions. Medications This patient has no known medications. Procedures This patient has no known procedures. Encounters Start End Encounter Admission Attending Care Care Encounter Source Date/Time Date/Time Type Type Clinicians Facility Department ID 2020-03-06 2020-03-06 Office LUCILA Sanchez [id number] 14:20:19 15:25:42 Visit Fritz Dean KITCHEN BATH DESIGN[facility] [id number] [facility] [id number] MATERNAL [id number] & CHILD [address] [place] [address] Results This patient has no known results.
--- OUTSIDE RECORDS SUMMARY | 2020-03-10 21:14 | XMS REPORT | Summary of Care ---
:1975 Author Organization [facility] Address [address] [place] [address] Care Team Providers Name Role Phone Dianne Sanchez Primary Care Provider Reason for Referral Radiology Services (Routine) Status Reason Specialty Diagnoses / Referred By Referred To Procedures Contact Contact New Request Diagnostic Diagnoses Well woman exam Daniel, Radiology Procedures BI SCREENING MAMMOGRAM BILATERAL YURIDIA Bangura [address] [place] [address] Reason for Visit Reason Comments Well Woman Exam Encounter Details Date Type Department Care Team Description 03/06/[address] [facility] Well woman exam (Primary Dx); YURIDIA Khalil Encounter for contraceptive management, unspecified type; [address] H/O: hyst erectomy; [address] Pain pelvic; [place] [id number] Hot flashes; [id number] Screening examination for STD (sexually transmitted disease); [phone] Cervical high risk human papillomavirus (HPV) DNA [...] This exam may be done by a truck jumper, family healthcare provider, nurse practitioner, nurse printing plate clerk, or specially trained nurse. Yearly breast exams [...] Guidelines for having clinical breast exams The [place] College of [employer]st[employer]ians and Gynecologists recommends that [...] Ryan cummings reviewed this educational content on 03/10/201719992578-2371 The [employer]. [address] [place] [address]. All rights reserved. This information is not [...] breast self-examination (BSE). These experts include the [place] [employer] and the [place] Congress of Obstetricians and Gynecologists. Some experts [...] benign. This means they are not cancer. [employer] last reviewed this educational content on 03/10/201719994599-7583 [employer]. [address] [place] [address], [place] [address]. All rights reserved. This information is not [...] in this age group Every exam 1 [place] [employer] Association 2 [place] College of Obstetricians and Gynecologists 3 [place] [employer] Society 4 [place] Academy of Ophthalmology [employer] last reviewed this educational content on 06/10/201719991845-1596 [employer]. [address] [place] [address]. All rights reserved. This information is not [...] can make now to protect your future. [employer] last reviewed this educational content on 07/10/201819992936-3104 [employer]. [address] [place] [address], [place] [address]. All rights reserved. This information is not [...] her child during , childbirth, and . [employer] last reviewed this educational content on 01/08/201919999207-7734 [employer]. [address] [place] [address]. All rights reserved. This information is not [...] try basil, cilantro, cinnamon, pepper, and dmitriy. [employer] last reviewed this educational content on 05/10/201719995307-2773 [employer]. [address] [place] [address]. All rights reserved. This information is not intended as a substitute for professional medical care. Always follow your healthcare professional's instructions. Patient Education Understanding [employer] MyPlate The USDA (U.S. Department of Agriculture) [...] get this muchfrom the food you eat. [employer] last reviewed this educational content on 03/10/201719997156-1832 The [employer]. [address] [place] [address]. All rights reserved. This information is not [...] file Gets together: Not on file Attends baptist service: Not on file Active member of [...] Social History Narrative Patient lives with children. Samaritan preference Yazidi. Social History Substance and Sexual Activity Sexual [...] Desired BCM:hysterectomy 3) LMP: 2003 4) Last [place]: 08/27/2019 5) Last Pap: 01/18/2019 Results:negative HPV?positive [...] on patient's age to [facility] documented as of this encounter Results [...] Address Typ e / Group Dates [facility] xxxxxxxxx 2018-Prese [phone] Medicaid WOMEN nt 00 [id number] [place] [address] documented as of this encounter Advance Directives Name Relationship Healthcare Agent Communication Relationship Murali Hay Other Primary healthcare agent Ariel Blanca Sibling Primary healthcare agent Mami Cabello Mother First alternate healthcare agent (Mobile)
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
--- OUTSIDE RECORDS SUMMARY | 2020-03-10 21:14 | XMS REPORT | Summary of Care ---
:1975 Author Organization [facility] Address [address] [place] [address] Care Team Providers Name Role Phone Dianne Sanchez Primary Care Provider Reason for Referral Radiology Services (Routine) Status Reason Specialty Diagnoses / Referred By Referred To Procedures Contact Contact New Request Diagnostic Diagnoses Well woman exam Daniel, Radiology Procedures BI SCREENING MAMMOGRAM BILATERAL YURIDIA Bangura [address] [place] [address] Reason for Visit Reason Comments Well Woman Exam Encounter Details Date Type Department Care Team Description [facility] Well woman exam (Primary Dx); YURIDIA Khalil Encounter for contraceptive management, unspecified type; [address] H/O: hyst erectomy; [address] Pain pelvic; [place] [phone] Hot flashes; [address] Screening examination for STD (sexually transmitted disease); [phone] Cervical high risk human papillomavirus (HPV) DNA [...] This exam may be done by a service attendant cafeteria, family healthcare provider, nurse practitioner, nurse analog device designer, or specially trained nurse. Yearly breast exams [...] Guidelines for having clinical breast exams The [place] [employer]st[employer]ians and Gynecologists recommends that [...] Ryan cummings reviewed this educational content on 03/10/201719997672-0042 The [employer]. [address] [place] [address]. All rights reserved. This information is not [...] breast self-examination (BSE). These experts include the [place] [employer] and the [place] Congress of Obstetricians and Gynecologists. Some experts [...] benign. This means they are not cancer. [employer] last reviewed this educational content on 03/10/201719991444-0115 The [employer]. [address] [place] [address], [place] [address]. All rights reserved. This information is not [...] in this age group Every exam 1 [place] [employer] Association 2 [place] [employer] of [employer]st[employer]ians [employer] Gynecologists 3 [place] [employer] Society 4 [place] Academy of Ophthalmology [employer] last reviewed this educational content on 06/10/201719998032-8248 The [employer]. [address] [place] [address]. All rights reserved. This information is not [...] can make now to protect your future. [employer] last reviewed this educational content on 07/10/201819999767-7127 The [employer]. [address] [place] [address], [place] [address]. All rights reserved. This information is not [...] her child during , childbirth, and . [employer] last reviewed this educational content on 01/08/201919998339-7137 The [employer]. [address] [place] [address]. All rights reserved. This information is not [...] try basil, cilantro, cinnamon, pepper, and dmitriy. [employer] last reviewed this educational content on 05/10/201719998481-4172 The [employer]. [address] [place] [address]. All rights reserved. This information is not intended as a substitute for professional medical care. Always follow your healthcare professional's instructions. Patient Education Understanding [employer] MyPlate The USDA (U.S. Department of Agriculture) [...] get this muchfrom the food you eat. [employer] last reviewed this educational content on 03/10/201719994132-1652 The [employer]. [address] [place] [address]. All rights reserved. This information is not [...] file Gets together: Not on file Attends protestant service: Not on file Active member of [...] Social History Narrative Patient lives with children. Moravian preference Voodoo. Social History Substance and Sexual Activity Sexual [...] Desired BCM:hysterectomy 3) LMP: 2003 4) Last [place]: 08/27/2019 5) Last Pap: 01/18/2019 Results:negative HPV?positive [...] on patient's age to complete this to [facility] documented as of this encounter Results Not [...] Typ e / Group Dates [facility] xxxxxxxxx 2018-Prese [phone] [place] [id number] [place] [address] documented as of this encounter Advance Directives Name Relationship Healthcare Agent Communication Relationship Murali Hay Other Primary healthcare agent Ariel Blanca Sibling Primary healthcare agent Mami Cabello Mother First alternate healthcare agent (Mobile)
[2020-03-10] MEDS ORDERED: NA CHLORIDE 0.9% 1,000 ML ONE (21:46)
[2020-03-10] MEDS ORDERED: NA CHLORIDE 0.9% 500 ML ONE (21:47)
[2020-03-10] MEDS ORDERED: ACETAMINOPHEN 500 MG TAB ONE (22:20)
[2020-03-10 22:21] LABS: Absolute Lymphocytes (CBC) 0.9 K/uL (0.7-4.9); Basophils % 0.4 % (0-1.3); Hematocrit 32.1 % (36.0-45.0); Lymphocytes % 12.2 % (15.3-44.8); RBC Red Blood Cell Count 3.48 M/uL (3.86-4.86)
[2020-03-10 22:26] LABS: Protime INR 1.19
[2020-03-10 22:32] LABS: Urine Blood NEGATIVE (NEG); Urine Glucose NEGATIVE (NEG); Urine Protein NEGATIVE (NEG)
[2020-03-10 22:43] LABS: ALT/SGPT 25 U/L (12-78); AST/SGOT 18 U/L (15-37); Alkaline Phosphatase 137 U/L (45-117); Amylase 55 U/L (25-115); BUN Blood Urea Nitrogen 9 mg/dL (7-18); Bicarbonate 27 mmol/L (21-32); Bilirubin Direct < 0.1 mg/dL (0-0.2); Bilirubin Total 0.2 mg/dL (0.2-1.0); CKMB Creatine Kinase MB < 1.0 ng/mL (0.3-3.6); Creatine Phosphokinase 123 U/L (26-192); Glucose Level 141 mg/dL (74-106); Lipase 152 U/L (73-393); Potassium 3.1 mmol/L (3.5-5.1); Protein, Total 7.9 g/dL (6.4-8.2); Sodium Level 142 mmol/L (136-145); Troponin (Emerg Dept Use Only) < 0.02 ng/mL (0.0-0.045)
[2020-03-10 23:09] LABS: Urine Bacteria <20 /HPF (<20); Urine RBC <5 /HPF (NONE SEEN)
[2020-03-10 23:10] LABS: Urine Culture Reflex Order NOT NEEDED
--- NOTE | 2020-03-10 23:45 | ER ---
Nurse's Notes [facility] Jered Name: Aracelis Rios Age: 44 yrs Sex: Female : 1975 Arrival Date: 03/10/2020 Time: 21:19 Bed 2 Private MD: Diagnosis: Acute pharyngitis Presentation: 03/10 21:20 Chief complaint: EMS states: patient was on rehab sent today because of the fever T rr5 101,had episode of seizure once. 21:20 Note patient stated she is having cough, colds, sore throat, body ache and chest hurts rr5 when she coughs. 21:20 Coronavirus screen: Client denies travel out of the [place] in the last 14 days. chills, rr5 congestion, cough unrelated to allergies, fatigue, fever, headache, nausea, sore throat, Client presents with at least one sign or symptom that may indicate coronavirus-19. Standard/surgical mask placed on the client. Provider contacted for isolation considerations. Ebola Screen: Patient negative for fever greater than or equal to 101.5 degrees Fahrenheit, and additional compatible Ebola Virus Disease symptoms Patient denies exposure to infectious person. Patient denies travel to an Ebola-affected area in the 21 days before illness onset. Initial Sepsis Screen: Does the patient meet any 2 criteria? RR > 20 per min. HR > 90 bpm. Yes Does the patient have a suspected source of infection? Yes: Productive cough/pneumonia. Risk Assessment: Do you want to hurt yourself or someone else? Patient reports no desire to harm self or others. Onset of symptoms was March 09, 2020. 21:20 Method Of Arrival: EMS: [facility] rr5 21:20 Acuity: PRASANNA 3 rr5 DISPERSION MIXER: 22:41 LMP N/A - Hysterectomy rr5 Historical: - Allergies: 21:20 Amoxicillin; rr5 21:20 Demerol; rr5 21:20 Ibuprofen; rr5 21:20 ketorolac tromethamine; rr5 21:20 Ondansetron HCl; rr5 21:20 PENICILLINS; rr5 - Home Meds: 21:20 Ambien 10 mg Oral tab 1 tab once daily [Active]; Remeron Oral [Active]; Xanax 1 mg Oral rr5 tab twice a day [Active]; oxycodone Oral [Active]; - PMHx: 21:20 Anxiety; Depression; PTSD; Seizures; rr5 - PSHx: 21:20 Hysterectomy; ; rr5 - Immunization history:: Adult Immunizations up to date, Adult Immunizations up to date. - Social history:: Smoking status: unknown Patient/guardian denies using alcohol, street drugs, tobacco products, . Screenin:27 Abuse screen: Denies threats or abuse. Denies injuries from another. Nutritional ao screening: No deficits noted. Tuberculosis screening: No symptoms or risk factors identified. Fall Risk None identified. Assessment: 21:24 General: Appears in no apparent distress. uncomfortable, slender, well groomed, well ao developed, well nourished, Behavior is calm, cooperative, appropriate for age. Pain: Complains of pain in neck and troath. Neuro: Level of Consciousness is awake, alert, obeys commands, Oriented to person, place, time, situation, Appropriate for age Moves all extremities. Full function Speech is normal. Cardiovascular: Capillary refill < 3 seconds Patient's skin is warm and dry. Respiratory: Airway is patent Respiratory effort is even, unlabored, Respiratory pattern is regular, symmetrical. GI: Abdomen is non-distended. : No signs and/or symptoms were reported regarding the genitourinary system. EENT: No signs and/or symptoms were reported regarding the EENT system. Derm: Skin is intact, Skin is pink, warm \T\ dry. Skin temperature is hot. Musculoskeletal: Range of motion: intact in all extremities. 22:40 Reassessment: Patient appears in no apparent distress at this time. Patient and/or rr5 family updated on plan of care and expected duration. Pain level reassessed. Patient is alert, oriented x 3, equal unlabored respirations, skin warm/dry/pink. awaiting for results. 23:13 Reassessment: Spoke to Son Murali and gave him an update of POC. Patient was notified. ao 03/11 00:03 Reassessment: Patient appears in no apparent distress at this time. Patient is alert, rr5 oriented x 3, equal unlabored respirations, skin warm/dry/pink. discharge instruction given and explained without complaints made. Vital Signs: 03/10 21:20 BP 112 / 78; Pulse 112; Resp 22; Temp 98.3; Pulse Ox 100% ; Weight 54.88 kg; Height 5 rr5 ft. 1 in. (154.94 cm); Pain 7/10; 22:41 BP 102 / 71; Pulse 110; Resp 20; Pulse Ox 100% ; rr5 23:13 BP 106 / 71; Pulse 114; Resp 99; Pulse Ox 98% on R/A; ao 03/11 00:03 BP 110 / 75; Pulse 95; Resp 16; Temp 98.6; Pulse Ox 100% ; rr5 03/10 21:20 Body Mass Index 22.86 (54.88 kg, 154.94 cm) rr5 ED Course: 03/10 21:19 Patient arrived in ED. rr5 21:24 Robin Ramesh, RN is Primary Nurse. ao 21:25 Triage completed. rr5 21:28 Arm band placed on right wrist. EKG completed in triage. Results shown to MD. rr5 21:30 Patient has correct armband on for positive identification. Placed in gown. Bed in low rr5 position. Call light in reach. Side rails up X2. telemetry monitor on. Pulse ox on. NIBP on. 21:47 Chest Single View XRAY In Process Unspecified. EDMS 21:54 Justin Baumann MD is Attending Physician. tw4 22:00 Inserted saline lock: 20 gauge in right antecubital area, using aseptic technique. rr5 Blood collected. 22:00 First set of blood cultures drawn by me. rr5 22:10 EKG done, by ED staff, reviewed by Justin Baumann MD. rr5 22:15 Second set of blood cultures drawn by me. Urine collected: clean catch specimen, clear. rr5 03/11 00:03 No provider procedures requiring assistance completed. IV discontinued, intact, rr5 bleeding controlled, No redness/swelling at site. Pressure dressing applied. Administered Medications: 03/10 21:47 Drug: NS 0.9% (30 ml/kg) 30 ml/kg Route: IV; Rate: bolus; Site: right antecubital; ao 23:30 Follow up: Response: No adverse reaction; IV Status: Completed infusion; IV Intake: rr5 1600ml 22:23 Drug: Tylenol 1000 mg Route: PO; rr5 23:30 Follow up: Response: No adverse reaction rr5 23:50 Drug: Cleocin 150 mg Route: PO; rr5 08/02 00:04 Follow up: Response: No adverse reaction rr5 03/10 23:59 Drug: Potassium Effervescent Tablet 50 mEq Route: PO; rr5 03/11 00:04 Follow up: Response: Medication administered at discharge. rr5 Intake: 03/10 23:30 IV: 1600ml; Total: 1600ml. rr5 Outcome: 23:45 Discharge ordered by MD. [email or web address] 03/11 00:03 Discharged to home ambulatory. rr5 Condition: stable Discharge instructions given to patient, Instructed on discharge instructions, follow up and referral plans. medication usage, Demonstrated understanding of instructions, follow-up care, medications, Prescriptions given X 1. 00:05 Patient left the ED. rr5 Signatures: Dispatcher [employer] Robin Anthony, RN RN Justin Hernandez MD MD tw4 Yair Ingram RN RN rr5 Corrections: (The following items were deleted from the chart) 00:26 08 23:13 BP 106 / 71; Pulse 14bpm; Resp 99bpm; Pulse Ox 98% RA; ao ao
--- NOTE | 2020-03-10 23:46 | EDPHYS ---
Physician Documentation [facility] Name: Aracelis Rios Age: 44 yrs Sex: Female : 1975 Arrival Date: 03/10/2020 Time: 21:19 Bed 2 Private MD: ED Physician Justin Baumann HPI: 03/11 01:42 This 44 yrs old Female presents to ER via EMS with complaints of Fever. tw4 01:42 The patient reports fever, not measured (subjective). 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 - Social history:: Smoking status: unknown Patient/guardian denies using alcohol, street drugs, tobacco products, . ROS: 03/11 01:44 Cardiovascular: Negative for chest pain, palpitations, and edema, Respiratory: Negative tw4 for shortness of breath, cough, wheezing, and pleuritic chest pain, Abdomen/GI: Negative for abdominal pain, nausea, vomiting, diarrhea, and constipation, Back: Negative for injury and pain, MS/Extremity: Negative for injury and deformity, Skin: Negative for injury, rash, and discoloration. Constitutional: Positive for fever. ENT: Positive for sore throat. Exam: 01:44 Constitutional: This is a well developed, well nourished patient who is awake, alert, tw4 and in no acute distress. Head/Face: Normocephalic, atraumatic. Chest/axilla: Normal chest wall appearance and motion. Nontender with no deformity. No lesions are appreciated. Cardiovascular: Regular rate and rhythm with a normal S1 and S2. No gallops, murmurs, or rubs. Normal PMI, no JVD. No pulse deficits. Respiratory: Lungs have equal breath sounds bilaterally, clear to auscultation and percussion. No rales, rhonchi or wheezes noted. No increased work of breathing, no retractions or nasal flaring. Abdomen/GI: Soft, non-tender, with normal bowel sounds. No distension or tympany. No guarding or rebound. No evidence of tenderness throughout. Back: No spinal tenderness. No costovertebral tenderness. Full range of motion. MS/ Extremity: Pulses equal, no cyanosis. Neurovascular intact. Full, normal range of motion. Neuro: Awake and alert, GCS 15, oriented to person, place, time, and situation. Cranial nerves II-XII grossly intact. Motor strength 5/5 in all extremities. Sensory grossly intact. Cerebellar exam normal. Normal gait. Vital Signs: 03/10 21:20 BP 112 / 78; Pulse 112; Resp 22; Temp 98.3; Pulse Ox 100% ; Weight 54.88 kg; Height 5 rr5 ft. 1 in. (154.94 cm); Pain 7/10; 22:41 BP 102 / 71; Pulse 110; Resp 20; Pulse Ox 100% ; rr5 23:13 BP 106 / 71; Pulse 114; Resp 99; Pulse Ox 98% on R/A; ao 03/11 00:03 BP 110 / 75; Pulse 95; Resp 16; Temp 98.6; Pulse Ox 100% ; rr5 03/10 21:20 Body Mass Index 22.86 (54.88 kg, 154.94 cm) rr5 MDM: 03/10 21:54 Patient medically screened. tw4 03/11 01:44 Data reviewed: vital signs, nurses notes. Data interpreted: Pulse oximetry: tw4 Interpretation: normal. Counseling: I had a detailed discussion with the patient and/or guardian regarding: the historical points, exam findings, and any diagnostic results supporting the discharge/admit diagnosis. Special discussion: I discussed with the patient/guardian in detail that at this point there is no indication for admission to the hospital. It is understood, however, that if the symptoms persist or worsen the patient needs to return immediately for re-evaluation. 03/10 21:32 Order name: Amylase, Serum; Complete Time: 23:40 03/10 21:32 Order name: Basic Metabolic Panel; Complete Time: 23:40 03/10 23:41 Interpretation: Abnormal: K 3.1; CL 110; GLUC 141; GFR 72. 03/10 21:32 Order name: Blood Culture Adult (2) 03/10 21:32 Order name: CBC with Diff; Complete Time: 23:40 03/10 23:41 Interpretation: Normal except: RBC 3.48; HGB 11.0; HCT 32.1; RADHA% 76.4; LYM% 12.2. 03/10 21:32 Order name: Ckmb; Complete Time: 23:40 03/10 21:32 Order name: CPK; Complete Time: 23:40 03/10 21:32 Order name: Lactate; Complete Time: 23:40 03/10 21:32 Order name: LFT's; Complete Time: 23:40 03/10 23:41 Interpretation: Normal except: ALK 137; GLOB 3.9; A/G 1.0. 03/10 21:32 Order name: Lipase; Complete Time: 23:40 03/10 21:32 Order name: Procalcitonin; Complete Time: 23:40 03/10 21:32 Order name: Protime (+inr); Complete Time: 23:40 03/10 23:41 Interpretation: Abnormal: PT 14.0. 03/10 21:32 Order name: Ptt, Activated; Complete Time: 23:40 03/10 21:32 Order name: Troponin (emerg Dept Use Only); Complete Time: 23:40 03/10 21:32 Order name: Urine Microscopic Only; Complete Time: 23:40 03/10 23:41 Interpretation: Abnormal: SQEPI 10-20. 03/10 21:32 Order name: Chest Single View XRAY 03/10 21:32 Order name: Accucheck; Complete Time: 22:21 03/10 21:32 Order name: Cardiac monitoring; Complete Time: 22:21 03/10 21:32 Order name: EKG - Nurse/Tech; Complete Time: 22:21 03/10 21:32 Order name: IV Saline Lock - Large Bore; Complete Time: 22:21 rr5 03/10 21:32 Order name: Labs collected and sent; Complete Time: 22:21 rr5 03/10 21:32 Order name: O2 Per Protocol; Complete Time: 22:21 rr5 03/10 21:32 Order name: O2 Sat Monitoring; Complete Time: 22:21 rr5 03/10 21:34 Order name: COVID-19 rr5 03/10 21:34 Order name: Flu; Complete Time: 23:40 rr5 03/10 21:34 Order name: Strep; Complete Time: 23:40 rr5 03/10 23:42 Interpretation: Abnormal: GP A STREP SC \T\nbsp; GROUP A STREP SCREEN-- \T\nbsp; \T\nbsp; tw4 POSITIVE. 03/10 22:21 Order name: Urine Dipstick--Ancillary (enter results); Complete Time: 23:40 tt3 03/10 21:32 Order name: Urine Dipstick-Ancillary (obtain specimen); Complete Time: 22:21 rr5 03/10 21:34 Order name: Droplet/Contact Precautions; Complete Time: 22:21 rr5 EC/01 22:38 Rate is 111 beats/min. Rhythm is regular, Sinus tachycardia. QRS [place] is Normal. ID tw4 interval is normal. QRS interval is normal. QT interval is normal. No Q waves. T waves are Normal. No ST changes noted. Clinical impression: Sinus tachycardia. Interpreted by me. Reviewed by me. Administered Medications: 21:47 Drug: NS 0.9% (30 ml/kg) 30 ml/kg Route: IV; Rate: bolus; Site: right antecubital; ao 23:30 Follow up: Response: No adverse reaction; IV Status: Completed infusion; IV Intake: rr5 1600ml 22:23 Drug: Tylenol 1000 mg Route: PO; rr5 23:30 Follow up: Response: No adverse reaction rr5 23:50 Drug: Cleocin 150 mg Route: PO; rr5 03/11 00:04 Follow up: Response: No adverse reaction rr5 03/10 23:59 Drug: Potassium Effervescent Tablet 50 mEq Route: PO; rr5 03/11 00:04 Follow up: Response: Medication administered at discharge. rr5 Disposition: 03/10/20 23:45 Discharged to Home. Impression: Acute pharyngitis. - Condition is Stable. - Discharge Instructions: Pharyngitis, Sore Throat, [id number]. - Prescriptions for Cleocin 150 mg Oral Capsule - take 1 capsule by ORAL route every 6 hours for 10 days; 40 capsule. - Medication Reconciliation Form, Thank You Letter, Antibiotic Education, Prescription Opioid Use form. - Follow up: Private Physician; When: Upon discharge from the Emergency Department; Reason: Recheck today's complaints, Continuance of care, Re-evaluation by your physician. - Problem is new. - Symptoms have improved. Signatures: Dispatcher [employer] EDRobin Rivera, RN RN Justin Hernandez MD MD tw4 Yair Ingram RN RN rr5 Corrections: (The following items were deleted from the chart) 00:05 03/10 23:45 03/10/2020 23:45 Discharged to Home. Impression: Acute pharyngitis. rr5 Condition is Stable. Forms are Medication Reconciliation Form, Thank You Letter, Antibiotic Education, Prescription Opioid Use. Follow up: Private Physician; When: Upon discharge from the Emergency Department; Reason: Recheck today's complaints, Continuance of care, Re-evaluation by your physician. Problem is new. Symptoms have improved. tw4
[2020-03-11] MEDS ORDERED: POTASSIUM 25 MEQ EFFERV TAB ONE
[2020-03-11 00:45] VITALS: BP 110/75; TEMP 98.6; O2SAT 100
--- NOTE | 2020-03-11 08:13 | RAD REPORT ---
EXAM DESCRIPTION: Nayana Single View03/10/2020 9:47 pm CLINICAL HISTORY: cough COMPARISON: August 2019 FINDINGS: The lungs appear clear of acute infiltrate. The heart is normal size IMPRESSION: No acute abnormalities displayed
== END 2020-03-11 00:05 | disposition home or self-care (01) ==
LOC: ER 21:11
DX: U07.1 COVID-19 (principal); J02.9 Acute pharyngitis, unspecified; F34.1 Dysthymic disorder; Z88.0 Allergy status to penicillin; Z88.1 Allergy status to other antibiotic agents; Z88.5 Allergy status to narcotic agent; Z88.6 Allergy status to analgesic agent; Z88.8 Allergy status to other drugs, medicaments and biological substances
CPT/HCPCS: 36415; 71045; 80048; 80076; 81003; 81015; 82150; 82550; 82553; 83605; 83690; 84145; 84484; 85025; 85610; 85730; 87040; 87081; 87804; 93005; 96365; 96366; 99285; J7030; J7040; U0001

== ENCOUNTER 2020-05-17 18:45 | Emergency (ER) | payer SELFPAY ==
[2020-05-17] MEDS ORDERED: IBUPROFEN 400 MG TAB ONE (19:25)
--- NOTE | 2020-05-17 19:41 | ER ---
Nurse's Notes [facility] Name: Aracelis Rios Age: 44 yrs Sex: Female : 1975 Arrival Date: 05/17/2020 Time: 18:46 Bed 17 Private MD: Diagnosis: Displaced fracture of neck of fifth metacarpal bone, right hand Presentation: 05/17 18:55 Chief complaint: Patient states: right hand swelling and bruising. Pt states "I had a aa5 seizure on Thursday and when I woke up I noticed a bookshelf had fallen on my right hand". Coronavirus screen: Client denies travel out of the [place] in the last 14 days. At this time, the client does not indicate any symptoms associated with coronavirus-19. Ebola Screen: Patient negative for fever greater than or equal to 101.5 degrees Fahrenheit, and additional compatible Ebola Virus Disease symptoms. Initial Sepsis Screen: Does the patient meet any 2 criteria? No. Patient's initial sepsis screen is negative. Does the patient have a suspected source of infection? No. Patient's initial sepsis screen is negative. Risk Assessment: Do you want to hurt yourself or someone else? Patient reports no desire to harm self or others. Onset of symptoms was May 2020. 18:55 Method Of Arrival: Ambulatory aa5 18:55 Acuity: PRASANNA 4 aa5 Historical: - Allergies: 18:57 Amoxicillin; aa5 18:57 Demerol; aa5 18:57 Ibuprofen; aa5 18:57 ketorolac tromethamine; aa5 18:57 Ondansetron HCl; aa5 18:57 PENICILLINS; aa5 - Home Meds: 18:57 Ambien 10 mg Oral tab 1 tab once daily [Active]; oxycodone Oral [Active]; Remeron Oral aa5 [Active]; Xanax 1 mg Oral tab twice a day [Active]; - PMHx: 18:57 Anxiety; Depression; PTSD; Seizures; aa5 - PSHx: 18:57 Hysterectomy; ; aa5 - Immunization history:: Adult Immunizations unknown. - Social history:: Smoking status: Patient denies any tobacco usage or history of. Screenin:32 Abuse screen: Denies threats or abuse. Nutritional screening: No deficits noted. fu Tuberculosis screening: No symptoms or risk factors identified. Fall Risk None identified. Assessment: 19:27 General: Appears comfortable, Behavior is calm, cooperative, appropriate for age, fu Denies fever, feeling ill, fatigue, chills. Pain: Complains of pain in right hand Pain does not radiate. Pain currently is 7 out of 10 on a pain scale. Quality of pain is described as throbbing, Pain began 1 day ago. Aggravated by movement. Neuro: Reports history of seizures last was yesterday. Denies weakness dizziness, headache. Cardiovascular: Denies chest pain, nausea, vomiting. Respiratory: Airway is patent Denies cough, shortness of breath. GI: No signs and/or symptoms were reported involving the gastrointestinal system. Derm: swelling and bruising of the right hand noted. Musculoskeletal: Reports pain in right hand. 20:00 Reassessment: Patient and/or family updated on plan of care and expected duration. Pain fu level reassessed. Patient is alert, oriented x 3, equal unlabored respirations, skin warm/dry/pink. Patient states feeling better. Vital Signs: 18:55 BP 125 / 92; Pulse 99; Resp 16 S; Temp 98.3(O); Pulse Ox 100% on R/A; Weight 52.16 kg aa5 (R); Height 5 ft. 1 in. (154.94 cm) (R); Pain 8/10; 19:15 BP 117 / 88; Pulse 102; Resp 16; Temp 98(O); Pulse Ox 100% on R/A; Pain 7/10; fu 19:46 BP 131 / 100; Pulse 100; Resp 16; Pulse Ox 100% on R/A; Pain 6/10; fu 18:55 Body Mass Index 21.73 (52.16 kg, 154.94 cm) aa5 ED Course: 18:46 Patient arrived in ED. as 18:57 Triage completed. aa5 18:57 Arm band placed on. aa5 18:59 Amadou Morris, RN is Primary Nurse. bp 19:04 Justin Baumann MD is Attending Physician. tw4 19:33 Hand Right 3 View XRAY In Process Unspecified. EDMS 19:33 Patient has correct armband on for positive identification. Bed in low position. Call fu light in reach. Side rails up X 1. Pulse ox on. NIBP on. 19:40 Luis Rogers MD is Referral Physician. tw4 19:40 Dain Del Rio MD is Referral Physician. tw4 19:40 Renny Fine MD is Referral Physician. tw4 20:00 No provider procedures requiring assistance completed. fu 20:15 Patient did not have IV access during this emergency room visit. fu 20:15 Sling applied to right arm. splint to right hand and arm applied. fu Administered Medications: 19:14 Drug: Motrin 800 mg Route: PO; fu 20:15 Follow up: Response: Pain is decreased fu Outcome: 19:41 Discharge ordered by MD. tw4 20:15 Discharged to home ambulatory. fu 20:15 Condition: stable 20:15 Discharge instructions given to patient, Instructed on discharge instructions, follow up and referral plans. Demonstrated understanding of instructions, follow-up care, medications, Prescriptions given X 2. 20:18 Patient left the ED. fu Signatures: Dispatcher [employer] EDMS Evelin Simms Audri, RN RN aa5 Zain Ambriz, Amadou Harvey RN, Justin Carrillo RN, MD MD tw4
--- NOTE | 2020-05-17 19:41 | EDPHYS ---
Physician Documentation [facility] Name: Aracelis Rios Age: 44 yrs Sex: Female : 1975 Arrival Date: 05/17/2020 Time: 18:46 Bed 17 Private MD: ED Physician Justin Baumann HPI: 05/17 19:15 This 44 yrs old Female presents to ER via Ambulatory with complaints of Hand tw4 Swelling. 19:15 The patient or guardian reports a contusion, pain. The complaints affect the right hand tw4 diffusely. Context: The problem was sustained at home, resulted from a fall, on an outstretched hand, pt had a seizure yesterday but cannot remember the details of the injury. Onset: The symptoms/episode began/occurred today. Modifying factors: The symptoms are alleviated by nothing, the symptoms are aggravated by nothing. The patient has not experienced similar symptoms in the past. Historical: - Allergies: 18:57 Amoxicillin; aa5 18:57 Demerol; aa5 18:57 Ibuprofen; aa5 18:57 ketorolac tromethamine; aa5 18:57 Ondansetron HCl; aa5 18:57 PENICILLINS; aa5 - Home Meds: 18:57 Ambien 10 mg Oral tab 1 tab once daily [Active]; oxycodone Oral [Active]; Remeron Oral aa5 [Active]; Xanax 1 mg Oral tab twice a day [Active]; - PMHx: 18:57 Anxiety; Depression; PTSD; Seizures; aa5 - PSHx: 18:57 Hysterectomy; ; aa5 - Immunization history:: Adult Immunizations unknown. - Social history:: Smoking status: Patient denies any tobacco usage or history of. ROS: 19:15 Constitutional: Negative for fever, chills, and weight loss, Cardiovascular: Negative tw4 for chest pain, palpitations, and edema, Respiratory: Negative for shortness of breath, cough, wheezing, and pleuritic chest pain, Abdomen/GI: Negative for abdominal pain, nausea, vomiting, diarrhea, and constipation, Back: Negative for injury and pain, Skin: Negative for injury, rash, and discoloration, Neuro: Negative for headache, weakness, numbness, tingling, and seizure. 19:15 MS/extremity: Positive for pain, swelling, tenderness. Exam: 19:15 Constitutional: This is a well developed, well nourished patient who is awake, alert, tw4 and in no acute distress. Head/Face: Normocephalic, atraumatic. Chest/axilla: Normal chest wall appearance and motion. Nontender with no deformity. No lesions are appreciated. Cardiovascular: Regular rate and rhythm with a normal S1 and S2. No gallops, murmurs, or rubs. Normal PMI, no JVD. No pulse deficits. Abdomen/GI: Soft, non-tender, with normal bowel sounds. No distension or tympany. No guarding or rebound. No evidence of tenderness throughout. Neuro: Awake and alert, GCS 15, oriented to person, place, time, and situation. Cranial nerves II-XII grossly intact. Motor strength 5/5 in all extremities. Sensory grossly intact. Cerebellar exam normal. Normal gait. 19:15 Musculoskeletal/extremity: Extremities: noted in the right hand: ecchymosis, pain, swelling, tenderness. Vital Signs: 18:55 BP 125 / 92; Pulse 99; Resp 16 S; Temp 98.3(O); Pulse Ox 100% on R/A; Weight 52.16 kg aa5 (R); Height 5 ft. 1 in. (154.94 cm) (R); Pain 8/10; 19:15 BP 117 / 88; Pulse 102; Resp 16; Temp 98(O); Pulse Ox 100% on R/A; Pain 7/10; fu 19:46 BP 131 / 100; Pulse 100; Resp 16; Pulse Ox 100% on R/A; Pain 6/10; fu 18:55 Body Mass Index 21.73 (52.16 kg, 154.94 cm) aa5 MDM: 19:04 Patient medically screened. tw4 19:15 Data reviewed: vital signs, nurses notes. Data interpreted: Pulse oximetry: tw4 Interpretation: normal. 05/17 19:12 Order name: Hand Right 3 View XRAY; Complete Time: 20:15 tw4 Administered Medications: 19:14 Drug: Motrin 800 mg Route: PO; fu 20:15 Follow up: Response: Pain is decreased fu Disposition: 05/17/20 19:41 Discharged to Home. Impression: Displaced fracture of neck of fifth metacarpal bone, right hand. - Condition is Stable. - Discharge Instructions: Metacarpal Fracture, Seizure, Adult. - Prescriptions for Tylenol- Codeine #3 300-30 mg Oral Tablet - take 2 tablet by ORAL route every 6 hours As needed; 6 tablet. Tramadol 50 mg Oral Tablet - take 1 tablet by ORAL route every 8 hours as needed; 12 tablet. - Medication Reconciliation Form, Thank You Letter, Antibiotic Education, Prescription Opioid Use form. - Follow up: Private Physician; When: Upon discharge from the Emergency Department; Reason: Recheck today's complaints, Continuance of care, Re-evaluation by your physician. Follow up: Luis Rogers MD; When: Upon discharge from the Emergency Department; Reason: Recheck today's complaints, Continuance of care, Re-evaluation by your physician. Follow up: Dain Del Rio MD; When: Upon discharge from the Emergency Department; Reason: Recheck today's complaints, Continuance of care, Re-evaluation by your physician. Follow up: Renny Fine MD; When: Upon discharge from the Emergency Department; Reason: Recheck today's complaints, Continuance of care, Re-evaluation by your physician. - Problem is new. - Symptoms have improved. Signatures: Dispatcher [employer] EDEricka Garibay RN RN aa5 Zain Ambriz RN RN fu Wadley, Terrence, MD MD tw4 Corrections: (The following items were deleted from the chart) 20:18 19:41 05/17/2020 19:41 Discharged to Home. Impression: Displaced fracture of neck of fu fifth metacarpal bone, right hand. Condition is Stable. Forms are Medication Reconciliation Form, Thank You Letter, Antibiotic Education, Prescription Opioid Use. Follow up: Private Physician; When: Upon discharge from the Emergency Department; Reason: Recheck today's complaints, Continuance of care, Re-evaluation by your physician. Follow up: Luis Rogers; When: Upon discharge from the Emergency Department; Reason: Recheck today's complaints, Continuance of care, Re-evaluation by your physician. Follow up: Dain Del Rio; When: Upon discharge from the Emergency Department; Reason: Recheck today's complaints, Continuance of care, Re-evaluation by your physician. Follow up: Renny Fine; When: Upon discharge from the Emergency Department; Reason: Recheck today's complaints, Continuance of care, Re-evaluation by your physician. Problem is new. Symptoms have improved. tw4
--- NOTE | 2020-05-17 19:55 | RAD REPORT ---
EXAM DESCRIPTION: RAD - Hand Right 3 View - 05/17/2020 7:34 pm CLINICAL HISTORY: Right hand pain status post injury FINDINGS: Comminuted oblique fracture involves the mid to distal fifth metacarpal with mild displace ment of fracture fragments. No dislocation
[2020-05-17 20:42] VITALS: O2SAT 100
[2020-05-17 20:43] VITALS: BP 117/88; TEMP 98
--- OUTSIDE RECORDS SUMMARY | 2020-05-18 05:28 | XMS REPORT | Continuity of Care Document ---
:1975 Author Organization [facility] t Address [address] [place] [address] Care Team Providers Name Role Phone Dianne Cohen Attending Clinician Problems This patient has no known problems. Allergies, Adverse Reactions, Alerts This patient has no known allergies or adverse reactions. Medications This patient has no known medications. Procedures This patient has no known procedures. Encounters Start End Encounter Admission Attending Care Care Encounter Source Date/Time Date/Time Type Type Clinicians Facility Department ID 2020-04-06 2020-04-06 Telephone LUCILA Sanchez [id number] 00:00:00 00:00:00 Fritz Dean [facility]IST [id number] [facility] [id number] MATERNAL [id number] & CHILD [address] [place] [address] 2020-03-14 2020-03-14 Hospital LUCILA Sanchez [id number] 06:34:55 23:59:00 Encounter Fritz Dean SPECIALTY [id number] [facility] [id number] CENTER AT [id number] [address] 2020-03-06 2020-03-06 Office LUCILA Sanchez [id number] 14:20:19 15:25:42 Visit Fritz Dean [facility]IST [id number] [facility] [id number] MATERNAL [id number] & CHILD [address] [place] [address] - [place] Results This patient has no known results.
--- OUTSIDE RECORDS SUMMARY | 2020-05-18 05:29 | XMS REPORT | Summary of Care ---
:1975 Author Organization [facility] Address [address] [place] [id number] Care Team Providers Name Role Phone Dianne Sanchez Primary Care Provider Reason for Visit Reason Comments Results Encounter Details Date Type Department Care Team Description 04/06/2020 Telephone [facility] Fritz Lam, YURIDIA Results [address] [place] [address] [address] [place] [address] [phone] Allergies Active Allergy Reactions Severity Noted Date Comments Amoxicillin Rash 12/21/2018 Ketorolac Tromethamine Hives 12/21/2018 Ondansetron Hcl (Pf) Hives 12/21/2018 documented as of this encounter (statuses as of 04/06/2020) Medications Medication Sig Dispensed Refills Start Date End Date Status OXcarbazepine 150 mg Take by mouth 2 0 Active tablet (two) times daily. documented as of this encounter (statuses as of 04/06/2020) Active Problems Problem Noted Date Pain pelvic [...] as of this encounter (statuses as of 04/06/2020) Social History Tobacco Use Types Packs/Day Years Used Date Never Smoker Smokeless Tobacco: Never Used Alcohol Use Drinks/Week oz/Week Comments Yes social Sex Assigned at Date Recorded Not on file documented as of this encounter Last Filed Vital Signs Not on filedocumented in this encounter Miscellaneous Notes Telephone Encounter - Lianne Chin RN - 04/06/2020 4:39 PM CDCali Rios is a 44 year old female Patient informed of lab results, no further questions asked. Patient verbalized understanding. elephone Encounter - Virginia Patiño - 04/06/2020 4:28 PM CDTAguillermo Rios is a 44 year old female Patient is requesting her test results. Please call patient at [phone] (home) documented in this encounter Plan of Treatment Health Maintenance Due Date Last Done Comments Breast Cancer Screening 2017 (MAMMOGRAM) INFLUENZA VACCINE (#1) 2020 DTaP,Tdap,and Td Vaccines (1 03/06/2021 Pos tponed from 1996 - Tdap) (Alternative Tiago delines) Depression Screening 03/06/2021 03/06/2020, 03/06/2020 PAP SMEAR 03/06/2023 03/06/2020, 01/18/2019, 12/21/2018 PNEUMOCOCCAL 0-64 YEARS Aged Out No longe r eligible based COMBINED SERIES on patient's age to complete this to pic documented as of this encounter Results Not on filedocumented in this encounter Insurance Payer Benefit Plan Subscriber ID Effective Phone Address Typ e / Group Dates [facility] [id number] 2018-Prese [phone] Medicaid WOMEN [address] [place] [address] [place] [id number] 2019-Prese [phone] [address] [place] Medicaid WOMEN WOMEN [address] [place] [address] documented as of this encounter Advance Directives Name Relationship Healthcare Agent Communication Relationship Murali Hay Other Health Care Agent Ariel Rios Sibling Health Care Agent Mami [facility] Care Agent (Mobile)
--- OUTSIDE RECORDS SUMMARY | 2020-05-18 05:29 | XMS REPORT | Summary of Care ---
:1975 Author Organization [facility] Address [address] [place] [address] Care Team Providers Name Role Phone Dianne Sanchez SOFT SUGAR CUTTER Primary Care Provider Reason for Referral Radiology Services (Routine) Status Reason Specialty Diagnoses / Referred By Referred To Procedures Contact Contact Closed Diagnostic Diagnoses Well woman exam Sanchez, Keeshahunda Radiology Procedures BI SCREENING MAMMOGRAM BILATERAL R, SOFT SUGAR CUTTER [address] [place] [address] Reason for Visit Radiology Services (Routine) Status Reason Specialty Diagnoses / Referred By Referred To Procedures Contact Contact Closed Diagnostic Diagnoses Well woman exam Sanchez, Roshunda Radiology Procedures BI SCREENING MAMMOGRAM BILATERAL R, SOFT SUGAR CUTTER [address] [place] [address] Encounter Details Date Type Department Care Team Description 03/14/2020 Hospital Encounter [facility] Van Sam Sanchez R, Arrived Breast Imaging-Angle ton SOFT SUGAR CUTTER [address] [place] [address] [address] [place] [address] [phone] Allergies Active Allergy Reactions Severity Noted Date Comments Amoxicillin Rash 12/21/2018 Ketorolac Tromethamine Hives 12/21/2018 Ondansetron Hcl (Pf) Hives 12/21/2018 documented as of this encounter (statuses as of 03/15/2020) Medications Medication Sig Dispensed Refills Start Date End Date Status OXcarbazepine 150 mg Take by mouth 2 0 Active tablet (two) times daily. documented as of this encounter (statuses as of 03/15/2020) Active Problems Problem Noted Date Pain pelvic [...] as of this encounter (statuses as of 03/15/2020) Social History Tobacco Use Types Packs/Day Years Used Date Never Smoker Smokeless Tobacco: Never Used Alcohol Use Drinks/Week oz/Week Comments Yes social Sex Assigned at Date Recorded Not on file COVID-19 Exposure Response Date Recorded In the last month, have you been in contact with No / Unsure 03/06/2020 2:36 PM CDT someone who was confirmed or suspected to have Coronavirus / COVID-19? documented as of this encounter Last Filed Vital Signs Not on filedocumented in this encounter Plan of Treatment Name Type Priority Associated Diagnoses Order S chedule BI SCREENING MAMMOGRAM IMAGING Routine Well woman exam ON CE for 1 Occurrences BILATERAL starting 2019 until 0 Health Maintenance Due Date Last Done Comments [...] filedocumented in this encounter Visit Diagnoses Diagnosis Well woman exam Routine general medical examination at a health care facility documented in this encounter Insurance Payer Benefit Plan Subscriber ID Effective Phone Address Typ e / Group Dates [place] [id number] 2019-Donn [phone] [address] [place] X Medicaid WOMEN WOMEN nt [address] [place] [address] documented as of this encounter Advance Directives Name Relationship Healthcare Agent Communication Relationship Murali Hay Other Health Care Agent Ariel Rios Sibling Health Care Agent Mami Cabello [facility] [phone] Agent (Mobile)
== END 2020-05-17 20:18 | disposition home or self-care (01) ==
LOC: ER 18:45
DX: S62.336A Displaced fracture of neck of fifth metacarpal bone, right hand, initial encounter for closed fracture (principal); W19.XXXA Unspecified fall, initial encounter; Y93.9 Activity, unspecified; Y92.009 Unspecified place in unspecified non-institutional (private) residence as the place of occurrence of the external cause; F41.8 Other specified anxiety disorders; G40.909 Epilepsy, unspecified, not intractable, without status epilepticus; Z88.0 Allergy status to penicillin; Z88.1 Allergy status to other antibiotic agents; Z88.5 Allergy status to narcotic agent; Z88.6 Allergy status to analgesic agent; Z88.8 Allergy status to other drugs, medicaments and biological substances
CPT/HCPCS: 99284

== ENCOUNTER 2020-05-20 18:22 | Emergency (ER) | payer SELFPAY ==
--- OUTSIDE RECORDS SUMMARY | 2020-05-20 18:24 | XMS REPORT | Continuity of Care Document ---
:1975 Author Organization [facility] t Address [address] [place] [address] Care Team Providers Name Role Phone Dianne [...] Department ID 2020-04-06 2020-04-06 Telephone LUCILA Sanchez [id number] 00:00:00 00:00:00 Fritz Dean LOGISTICS SYSTEM ENGINEER [id number] [facility] [id number] MATERNAL [phone] & CHILD [address] [place] [address] 2020-03-14 2020-03-14 Hospital LUCILA Sanchez [id number] 06:34:55 23:59:00 Encounter Fritz Dean SPECIALTY [id number] [facility] [id number] CENTER AT [phone] [address] 2020-03-06 2020-03-06 Office LUCILA Sanchez [id number] 14:20:19 15:25:42 Visit rFitz Dean LOGISTICS SYSTEM ENGINEER [id number] [facility] [id number] MATERNAL [phone] & CHILD [address] [place] [address] - [place] Results This patient has no known results.
--- OUTSIDE RECORDS SUMMARY | 2020-05-20 18:27 | XMS REPORT | Summary of Care ---
:1975 Author Organization [facility] Address [address] [place] [address] Care Team Providers Name Role Phone Dianne Sanchez Primary Care Provider Reason for Visit Reason Comments Results Encounter Details Date Type Department Care Team Description 04/06/2020 Telephone [facility]- A Fritz Lam, YURIDIA Results [address] [place] [address] [address] [place] [address] [phone] Allergies Active Allergy Reactions Severity Noted Date [...] her test results. Please call patient at [phone] (home) documented in this encounter Plan of [...] Phone Address Typ e / Group Dates [facility] [id number] 2018-Prese [phone] Medicaid WOMEN nt [address] [place] [address] [place] [id number] 2019-Prese [phone] [address] [place] Medicaid WOMEN WOMEN [address] [place] [address] documented as of this encounter Advance Directives Name Relationship Healthcare Agent Communication Relationship Murali Hay Other Health Care Agent Ariel Rios Sibling Health Care Agent Mami Cabello [facility] Care Agent (Mobile)
--- OUTSIDE RECORDS SUMMARY | 2020-05-20 18:27 | XMS REPORT | Summary of Care ---
:1975 Author Organization [facility] Address [address] [place] [address] Care Team Providers Name Role Phone Dianne Sanchez TIN POT OPERATOR Primary Care Provider Reason for Referral Radiology Services (Routine) Status Reason Specialty Diagnoses / Referred By Referred To Procedures Contact Contact Closed Diagnostic Diagnoses Well woman exam Sanchez, Keeshahunda Radiology Procedures BI SCREENING MAMMOGRAM BILATERAL R, TIN POT OPERATOR [address] [place] [address] Reason for Visit Radiology Services (Routine) Status Reason Specialty Diagnoses / Referred By Referred To Procedures Contact Contact Closed Diagnostic Diagnoses Well woman exam Sanchez, Roshunda Radiology Procedures BI SCREENING MAMMOGRAM BILATERAL R, TIN POT OPERATOR [address] [place] [address] Encounter Details Date Type Department Care Team Description 03/14/[address] [facility] Mobile Van Sam Sanchez R, Arrived Breast Imaging-Angle ton TIN POT OPERATOR [address] [place] [address] [address] [place] [address] [phone] Allergies Active Allergy Reactions Severity Noted Date [...] Address Typ e / Group Dates [facility] [place] [facility] [place] [id number] 2019-Donn [phone] [address] [place] X Medicaid WOMEN WOMEN nt [address] [place] [address] documented as of this encounter Advance Directives Name Relationship Healthcare Agent Communication Relationship Murali Hay Other Health Care Agent Ariel Rios Sibling Health Care Agent Mami Cabello [facility] Health Care Agent (Mobile)
[2020-05-20] MEDS ORDERED: NA CHLORIDE 0.9% 2,000 ML ONE (18:29)
--- NOTE | 2020-05-20 19:47 | EDPHYS ---
Physician Documentation [facility] Name: Aracelis Rios Age: 44 yrs Sex: Female : 1975 Arrival Date: 05/20/2020 Time: 18:23 Bed 2 Private MD: ED Physician Deacon Agee HPI: 05/20 18:26 This 44 yrs old Female presents to ER via Unassigned with complaints of ps1 cardiac arrest. 18:26 Patient was brought in by [facility]. Reported 30 min seen last before EMS call. On ps1 arrival patient was pulseless and warm. Rhythm was asystole. CPR was initiated 2/2 patient being still warm. Nearly 1 hour OOH down time without change in status. ACLS was performed by EMS and gave multiple rounds of epinephrine and Narcan. Patient presented with Severo device. Pulseless. No intrinsic cardiac activity on POCUS. TOD 1821 in ED. Reportedly abusing xanax per EMS. . Historical: - Allergies: 18:41 Amoxicillin; sv 18:41 Demerol; sv 18:41 Ibuprofen; sv 18:41 ketorolac tromethamine; sv 18:41 Ondansetron HCl; sv 18:41 PENICILLINS; sv - PMHx: 18:41 Anxiety; Depression; PTSD; Seizures; sv - PSHx: 18:41 Hysterectomy; ; sv ROS: 18:26 Unable to obtain ROS due to comatose state. ps1 Exam: 18:26 Head/Face: Normocephalic, atraumatic. ps1 18:26 Constitutional: The patient appears Unresponsive, Intubated, Severo device performing CPR. 18:26 Head/face: 18:26 Eyes: Pupils: are fixed and dilated. 18:26 ENT: Nose: white substance in left naris.. 18:26 Cardiovascular: asystole, no intrinsic cardiac activity. 18:26 Respiratory: intubated. No respiratory drive. 18:26 Neuro: areflexic. Vital Signs: 18:42 Pulse 0; Resp 14 A; Temp 96.7(R); ph 18:46 Weight 52 kg; Height 5 ft. 1 in. (154.94 cm); sv 18:46 Body Mass Index 21.66 (52.00 kg, 154.94 cm) sv MDM: 18:26 Differential diagnosis: cardiac arrest, respiratory arrest, overdose. Data reviewed: ps1 vital signs, nurses notes, EMS record. 18:45 Patient medically screened. ps1 19:07 ED course: Notified RANJITH Trotter. ps1 Administered Medications: No medications were administered Disposition: 18:26 . ps1 18:34 Chart complete. ps1 Disposition: Patient pronounced on 05/20/20 18:20 by Deacon Agee. Impression: Cardiac arrest. - Released to Insurance Verifier. Signatures: Karie Whalen RN RN Alize Dave FNP-C RETORT COOLER-Nancy Mendoza Phillip, MD MD ps1 Corrections: (The following items were deleted from the chart) 19:08 18:26 Patient was brought in by [facility]. Reported 30 min seen last before EMS call. ps1 On arrival patient was pulseless and warm. Rhythm was asystole. CPR was initiated 2/2 patient being still warm. Nearly 1 hour OOH down time without change in status. ACLS was performed by EMS and gave multiple rounds of epinephrine and Narcan. Patient presented with Severo device. Pulseless. No intrinsic cardiac activity on POCUS. TOD 1821 in ED. . ps1 22:07 19:46 05/20/2020 19:46 Patient pronounced on 05/20/2020 at 18:20 by Deacon Agee. georgie Impression: Cardiac arrest. Released to Insurance Verifier. snw
--- NOTE | 2020-05-20 19:47 | ER ---
Nurse's Notes [facility] Name: Aracelis Rios Age: 44 yrs Sex: Female : 1975 Arrival Date: 05/20/2020 Time: 18:23 Bed 2 Private MD: Diagnosis: Cardiac arrest Presentation: 05/20 18:16 Chief complaint: EMS states: called out at 1746 for pt being unresponsive and not sv breathing. Male person at the house stated that she was talking 30 mins prior to when they left to the store, came back home and had to knock her door down to get to her. Found unresponsive and not breathing. Male person stated that she had been taking "bars." On EMS arrivale pt was warm to touch, asystole, CPR started on scene by EMS, IV to L AC, intubated ETT-7.0, 21 at the teeth, Epinephrine x 4 given with last at 1817, Narcan 2mg IVP given at 1810. Care prior to arrival: Oral intubation, CPR via thumper performed by EMS and is still in progress IV initiated. in the left antecubital area. Compressions began prior to arrival. 18:16 Method Of Arrival: EMS: [facility] sv 18:16 Acuity: PRASANNA 1 sv 18:18 Coronavirus screen: At this time, the client does not indicate any symptoms associated ph with coronavirus-19. Ebola Screen: No symptoms or risks identified at this time. Initial Sepsis Screen: Does the patient meet any 2 criteria? No. Patient's initial sepsis screen is negative. Does the patient have a suspected source of infection? No. Patient's initial sepsis screen is negative. Risk Assessment: Do you want to hurt yourself or someone else? Unable to obtain. 18:18 Method Of Arrival: EMS: [facility] ph 18:37 Acuity: PRASANNA 1 ph Historical: - Allergies: 18:41 Amoxicillin; sv 18:41 Demerol; sv 18:41 Ibuprofen; sv 18:41 ketorolac tromethamine; sv 18:41 Ondansetron HCl; sv 18:41 PENICILLINS; sv - PMHx: 18:41 Anxiety; Depression; PTSD; Seizures; sv - PSHx: 18:41 Hysterectomy; ; sv Assessment: 18:20 CPR assessment: unresponsive, pupils fixed \\T\\ dilated, no respiratory effort, intubated, ph Ambu ventilation, cyanotic, pulses absent w/ compressions. Cardiac rhythm is asystole. General: Behavior is unresponsive. Neuro: Level of Consciousness is unresponsive, Oriented to none Pupils are fixed, dilated. EENT: Nares blue/green powdery substance noted to L nare. Cardiovascular: Capillary refill is > 3 seconds in bilateral fingers Rhythm is asystole. Respiratory: Airway via oral intubation Respiratory pattern is symmetrical. GI: Abdomen is flat, non-distended. Derm: Skin is dry, Skin is dusky, mottled, pale, Skin temperature is cool. 18:21 Reassessment: Dr Agee at bedside, bedside US shows no cardiac activity, TOD 1821. ph 18:45 Reassessment: Spoke with Lora Medel from [facility]. Pt is a candidate for eye and sv tissue. 19:00 Reassessment: [place] [facility] officer at bedside. ph 22:01 Reassessment: Family member was able to see Pt, [facility] here to warehouse picker Pt. Vital Signs: 18:42 Pulse 0; Resp 14 A; Temp 96.7(R); ph 18:46 Weight 52 kg; Height 5 ft. 1 in. (154.94 cm); sv 18:46 Body Mass Index 21.66 (52.00 kg, 154.94 cm) sv ED Course: 18:23 Patient arrived in ED. sv 18:25 Deacon Agee MD is Attending Physician. ps1 18:26 Police department [place] called/ [place] will be paged. eb 18:38 Triage completed. ph 18:42 Zeny Moura RN is Primary Nurse. sv 19:46 Deacon Agee MD is Pronouncing Provider. snw 21:00 Primary Nurse role handed off by Zeny Moura RN tt3 Administered Medications: No medications were administered Outcome: 18:21 Outcome Patient sv 18:21 Patient : Time of 18:21 Pronounced by Deacon Agee MD 18:21 Condition: 22:07 Patient left the ED. Signatures: Karie Whalen RN RN Alize Genao, ADMINISTRATIVE DIRECTOR-C ADMINISTRATIVE DIRECTOR-Csnw Zeny Moura RN RN Nancy Oconnell Deacon Agee MD MD ps1 Alicia Moffett, Ivan tt3
[2020-05-20 22:13] VITALS: TEMP 96.7
== END 2020-05-20 22:07 ==
LOC: ER 18:22
DX: I46.9 Cardiac arrest, cause unspecified (principal); F43.10 Post-traumatic stress disorder, unspecified; F41.8 Other specified anxiety disorders; Z88.0 Allergy status to penicillin; Z88.1 Allergy status to other antibiotic agents; Z88.5 Allergy status to narcotic agent; Z88.6 Allergy status to analgesic agent; Z88.8 Allergy status to other drugs, medicaments and biological substances
CPT/HCPCS: 92950; 99285; J7030